=== PATIENT | male | born 1945 | race Caucasian/White ===

== ENCOUNTER 2016-12-14 18:25 | Emergency (ER) | payer OTHER, BC ==
[~2016-12-14] VITALS: Ht 175.3 cm; Wt 78.7 kg
[~2016-12-14 18:25] MED LIST: ACIDOPHILUS1 EAC3 PO; ALLOPURINOL100 MG PO; AMLODIPINE BESYL5 MG PO; AMLODIPINE-BEN1 EAC2 PO; AMLODIPINE-BEN1 EAC4 PO; ASCORBIC ACID500 M3 PO; ASCORBIC ACID500 MG PO; ASPIR 8181 M1 PO; ASPIRIN EC325 MG PO; ASPIRIN325 MG PO; ATIVAN0.5 MG PO; BESIVANCE5 ML LEFT EYE; C COMPLEX500 MG PO; CENTAMIN240 ML GT; CENTURY PO; CENTURY SENIOR PO; CHILD ASPIRIN81 M1 PO; CHOLESTYRAMINE L4 GM PO; CLINDAMYCIN HC300 MG PO; DIFLUCAN100 MG PO; DILAUDID2 MG PO; DOXYCYCLINE HY100 MG PO; DRONABINOL2.5 MG PO; EAR WAX REMOVAL15 ML BOTH EARS; ENDOCET 5-3251 EACH PO; FENOFIBRATE145 M1 GT; FEOSOL325 MG PO; FERROCITE324 MG PO; FERROUS SULFAT325 MG PO; FISH OIL CONC1 EACH PO; FISH OIL SOFTG1 EACH PO; FLEET ENEMA EX230 ML PR; FLEET ENEMA-AD118 ML PR; FURADANTIN5 MG/ML PO; Flora-Q,Risaquad PO; GABAPENTIN400 MG PO; GAS RELIEF 8080 MG PO; GENTLE LAXATIVE10 MG PR; GLUCOSAMINE &1 EAC1 PO; GLUCOSAMINE &1 EACH PO; HEPARIN SO5000 UNITS SC; IRON325 M1 PO; IRON325 MG PO; KEFLEX500 MG PO; LEVOTHYROXINE50 MCG PO; LIDOCAINE700 MG TD; LIDODERM 5% P1 PATCH TD; LIPITOR20 MG PO; LO-DOSE ASPIRIN81 M1 PO; LOPERAMIDE2 M1 PO; LOPERAMIDE2 MG PO; LORAZEPAM0.5 MG PO; LOTEMAX5 ML LEFT EYE; LOTREL 5/101 CAPSULE PO; MAGNESIUM400 M1 PO; MARINOL10 MG PO; MARINOL5 MG PO; MEGACE40 MG PO; METOCLOPRAMIDE10 MG PO; MILK OF MAGN PO; MIRALAX17 GM PO; MORPHINE SULFAT15 M1 PO; MOTRIN600 MG PO; MOTRIN800 MG PO; MULTIPLE VITAM1 EAC1 PO; MULTIVITAMIN1 EAC2 PO; MYLICON,MYLANTA80 MG PO; NABI650T PO; NEURONTIN100 MG PO; NEURONTIN400 MG PO; NORCO 5/3251 TABLET PO; NORVASC5 MG PO; NYSTOP60 GM TP; OMEPRAZOLE20 M3 PO; OMEPRAZOLE20 MG PO; OMEPRAZOLE40 M1 PO; OSTEO BI-FLEX1 EAC1 PO; OXYCODONE HCL10 M1 PO; OXYCODONE HCL10 MG PO; OXYCODONE HCL5 MG PO; OXYCODONE-APAP1 EACH; PANTOPRAZOLE SO40 MG PO; PAROXETINE HCL20 MG PO; PAXIL20 MG PO; PERCOCET 10/1 TABLET PO; PERCOCET 5/31 TABLET PO; PHENADOZ25 MG PR; POTASSIUM CHLO10 ME3 PO; POTASSIUM CHLO20 ME1 PO; PRAVACHOL40 MG PO; PRILOSEC20 MG PO; PROBIOTIC & AC1 EACH PO; PROBIOTIC ACID1 EAC1 PO; PROBIOTIC1 EAC1 PO; PROLENSA1.6 ML LEFT EYE; PROMETHAZINE12.5 M1 PO; PROTONIX40 MG PO; PYRIDOXINE HCL100 MG PO; QUESTRAN PACKET4 GM PO; QUESTRAN POWDE378 GM PO; REGLAN10 MG PO; REGLAN5 MG PO; ROXICODONE5 MG PO; SIMVASTATIN40 MG PO; ST. JOSEPH ASPI81 MG PO; TOPROL XL25 MG PO; TOPROL XL50 MG PO; TRIMETHOPRIM100 MG PO; TYLENOL ARTHRI650 MG PO; TYLENOL REGULA325 MG PO; TYLENOL325 MG PR; TYLENOL650 MG PR; ULTRAM50 MG PO; VANCOCIN HCL125 MG PO; VANCOMYCIN HCL250 MG PO; VITAMIN B-6100 MG PO; VOLTAREN 1% GE100 GM TP; Vancocin Oral Solution PO; XANAX0.25 MG PO; XIFAXAN550 MG PO; ZOCOR40 MG PO; ZOFRAN4 MG PO; ZOLPIDEM TARTRAT5 MG PO; ZOSYN 3.373.375 GM/5 IV; ZOSYN 3.3753.375 GM IV; ZYLOPRIM100 MG PO
[2016-12-14 21:49] VITALS: BP 104/86
== END 2016-12-14 21:49 | disposition home or self-care (01) ==
LOC: EME 18:25
DX: S09.90XA Unspecified injury of head, initial encounter (principal); W51.XXXA Accidental striking against or bumped into by another person, initial encounter; Z89.612 Acquired absence of left leg above knee
CPT/HCPCS: 70450; 99281; 99284

== ENCOUNTER → 2016-12-25 | Outpatient (CLI) | payer OTHER, BC ==
[~2016-12-25] MED LIST changes: +ERGOCALCIF50000 UNIT PO; +VALSARTAN40 MG PO
[2016-12-25 10:52] LABS: HEMATOCRIT 33.4 % (38.0-50.0); MCH 28.9 PG (29.0-34.0); MCHC 32.3 G/DL (30.0-36.0); MCV 89.3 FL (86-99); MEAN PLAT.VOLUME 10.5 uM^3 (9.0-12.4); PLATELET COUNT 219 K/uL (156-360); RBC DIS.WIDTH-CV 13.6 % (11.8-14.6); RBC DIS.WIDTH-SD 44.3 % (39-53); RED BLOOD COUNT 3.74 M/uL (4.00-5.50); WHITE BLOOD COUNT 8.9 K/uL (4.1-10.2)
== END | disposition home or self-care (01) ==
LOC: AMB 09:51
PROVIDERS: Physician Assistant
DX: K62.9 Disease of anus and rectum, unspecified (principal); Z93.2 Ileostomy status
CPT/HCPCS: 85027; 99211

== ENCOUNTER 2017-01-16 18:37 | Inpatient (IN) | payer OTHER, BC ==
[~2017-01-16] VITALS: Ht 157.5 cm; Wt 82.1 kg
[2017-01-16] VITALS (7 sets, daily range): BP systolic 62–101; BP diastolic 37–48
[2017-01-16 19:10] LABS: EOSINOPHIL (%) 0.1 % (0-5); HEMATOCRIT 26.1 % (38.0-50.0); IMMATURE GRANULOCYTE (%) 0.6 % (0.0-0.7); IMMATURE GRANULOCYTE COUNT 0.1 K/uL; INSTRUMENT ABS NEUTROPHIL CT 15.5 K/uL; LYMPHOCYTE COUNT 0.7 K/uL (1.0-2.8); MCH 28.8 PG (29.0-34.0); MCHC 30.7 G/DL (30.0-36.0); MEAN PLAT.VOLUME 10.2 uM^3 (9.0-12.4); MONOCYTE (%) 4.5 % (3-12); MONOCYTE COUNT 0.8 K/uL (0-0.8); NEUTROPHIL (%) 90.5 % (45-76); NEUTROPHIL COUNT 15.5 K/uL (1.8-6.4); RBC DIS.WIDTH-CV 12.9 % (11.8-14.6); RBC DIS.WIDTH-SD 44.4 % (39-53)
[2017-01-16 19:12] LABS: MCV 93.9 FL (86-99); PLATELET COUNT 546 K/uL (156-360); RED BLOOD COUNT 2.78 M/uL (4.00-5.50); WHITE BLOOD COUNT 17.2 K/uL (4.1-10.2)
[2017-01-16 19:22] LABS: CHLORIDE 84 mEq/L (99-109); POTASSIUM 4.8 mEq/L (3.7-5.4); SODIUM 130 mEq/L (136-147)
[2017-01-16 19:25] LABS: GLUCOSE 160 mg/dL (70-99)
[2017-01-16 19:26] LABS: ANION GAP 19 MEQ/L (2-14)
[2017-01-16 19:26] LABS: POINT-OF-CARE METER ID UU14100415
[2017-01-16 19:27] LABS: TOTAL BILIRUBIN 0.9 mg/dL (0.0-1.0)
[2017-01-16 19:28] LABS: ALKALINE PHOSPHATASE 134 IU/L (3-129); GFR ESTIMATE (CALCULATED) 15 mL/min/
[2017-01-16 19:29] LABS: UREA NITROGEN (BUN) 66 mg/dL (9-23)
[2017-01-16] MEDS ORDERED: ALIGN4 MG PO (21:14)
[2017-01-16] MEDS ORDERED: ONDANSETRON4 MG/2 ML IV (21:15)
[2017-01-16] MEDS ORDERED: ROXICODONE5 MG PO ×2 (21:16→21:17)
[2017-01-16] MEDS ORDERED: MAGOX 400400 MG PO (21:18)
[2017-01-16] MEDS ORDERED: HEPARIN SO5000 UNITS SC (21:18)
[2017-01-16 22:58] LABS: METH RESISTANT S AUREUS PCR NEGATIVE (NEGATIVE)
[2017-01-16 23:05] LABS: PROBE CHECK PASS; SPECIMEN PROCESSING CONTROL PASS
[2017-01-17] VITALS (31 sets, daily range): BP systolic 62–114; BP diastolic 28–57
[2017-01-17 00:06] LABS: C DIFF TOXIN NEGATIVE (NEGATIVE)
[2017-01-17 00:15] LABS: PROBE CHECK PASS; SPECIMEN PROCESSING CONTROL PASS
[2017-01-17 01:08] LABS: POTASSIUM 5.1 mEq/L (3.7-5.4)
[2017-01-17 01:09] LABS: SODIUM 131 mEq/L (136-147)
[2017-01-17 01:10] LABS: CHLORIDE 93 mEq/L (99-109)
[2017-01-17 01:11] LABS: GLUCOSE 156 mg/dL (70-99)
[2017-01-17 01:12] LABS: ANION GAP 16 MEQ/L (2-14)
[2017-01-17 01:13] LABS: HEMATOCRIT 25.2 % (38.0-50.0); MCH 28.9 PG (29.0-34.0); MCHC 30.6 G/DL (30.0-36.0); MCV 94.7 FL (86-99); RBC DIS.WIDTH-CV 13.2 % (11.8-14.6); RBC DIS.WIDTH-SD 45.1 % (39-53); RED BLOOD COUNT 2.66 M/uL (4.00-5.50); TOTAL BILIRUBIN 0.8 mg/dL (0.0-1.0); WHITE BLOOD COUNT 12.8 K/uL (4.1-10.2)
[2017-01-17 01:14] LABS: ALKALINE PHOSPHATASE 119 IU/L (3-129); GFR ESTIMATE (CALCULATED) 16 mL/min/
[2017-01-17 01:15] LABS: UREA NITROGEN (BUN) 66 mg/dL (9-23)
[2017-01-17 01:50] LABS: EOSINOPHIL (%) 0 % (0-5); HEMATOLOGY COMMENT 1 SMEAR COMPATIBLE; IMMATURE GRANULOCYTE (%) 0.6 % (0.0-0.7); IMMATURE GRANULOCYTE COUNT 0.1 K/uL; INSTRUMENT ABS NEUTROPHIL CT 11.9 K/uL; LYMPHOCYTE COUNT 0.4 K/uL (1.0-2.8); MONOCYTE (%) 3.8 % (3-12); MONOCYTE COUNT 0.5 K/uL (0-0.8); NEUTROPHIL (%) 92.5 % (45-76); NEUTROPHIL COUNT 11.9 K/uL (1.8-6.4); PLATELET CLUMPS PRESENT - PLATELET COUNT APPEARS INCREASED; PLATELET COUNT UNABLE TO REPORT K/uL (156-360)
[2017-01-17 05:46] LABS: EOSINOPHIL (%) 0 % (0-5); HEMATOCRIT 19.6 % (38.0-50.0); IMMATURE GRANULOCYTE (%) 0.7 % (0.0-0.7); IMMATURE GRANULOCYTE COUNT 0.1 K/uL; INSTRUMENT ABS NEUTROPHIL CT 10.7 K/uL; LYMPHOCYTE COUNT 0.4 K/uL (1.0-2.8); MCHC 30.6 G/DL (30.0-36.0); MCV 94.7 FL (86-99); MEAN PLAT.VOLUME 10.1 uM^3 (9.0-12.4); MONOCYTE (%) 4.7 % (3-12); MONOCYTE COUNT 0.6 K/uL (0-0.8); NEUTROPHIL (%) 90.9 % (45-76); NEUTROPHIL COUNT 10.7 K/uL (1.8-6.4); PLATELET COUNT 333 K/uL (156-360); RBC DIS.WIDTH-CV 13.1 % (11.8-14.6); RBC DIS.WIDTH-SD 45.2 % (39-53); RED BLOOD COUNT 2.07 M/uL (4.00-5.50); WHITE BLOOD COUNT 11.8 K/uL (4.1-10.2)
[2017-01-17 06:05] LABS: ANION GAP 10 MEQ/L (2-14); CHLORIDE 96 MEQ/L (99-109); GFR ESTIMATE (CALCULATED) 17 mL/min/; POTASSIUM 4.9 MEQ/L (3.7-5.4); SAMPLE HEMOLYSIS CHECK 0; SAMPLE ICTERIC CHECK 0; SAMPLE LIPEMIA CHECK 0; SODIUM 132 MEQ/L (136-147); UREA NITROGEN (BUN) 62 mg/dL (9-23)
[2017-01-17 06:06] LABS: GLUCOSE 116 mg/dL (70-99)
[2017-01-17 12:41] LABS: POINT-OF-CARE METER ID UU13113731
[2017-01-17 15:54] LABS: ABSOLUTE RETICULOCYTE CT. 0.1 M/uL (0.02-0.08); HEMATOCRIT 25.2 % (38.0-50.0); IMM.RETIC FRACTION 18.9 % (3-19); MCV 94.7 FL (86-99); RETIC HGB EQUIVALENT 24.7 (28-36); RETICULOCYTE COUNT 2.5 % (0.5-1.8)
[2017-01-17 16:23] LABS: IRON 47 MCG/DL (35-150)
[2017-01-17 16:39] LABS: FERRITIN 1330 NG/ML (22-322)
[2017-01-18] VITALS (27 sets, daily range): BP systolic 84–124; BP diastolic 38–70
[2017-01-18 06:34] LABS: HEMATOCRIT 23.3 % (38.0-50.0); MCH 29.8 PG (29.0-34.0); MCHC 30.9 G/DL (30.0-36.0); MCV 96.3 FL (86-99); MEAN PLAT.VOLUME 10.1 uM^3 (9.0-12.4); PLATELET COUNT 269 K/uL (156-360); RBC DIS.WIDTH-CV 13.4 % (11.8-14.6); RBC DIS.WIDTH-SD 47.5 % (39-53); RED BLOOD COUNT 2.42 M/uL (4.00-5.50)
[2017-01-18 19:23] LABS: HEMATOCRIT 31.7 % (38.0-50.0); MCH 29.2 PG (29.0-34.0); MCHC 31.5 G/DL (30.0-36.0); MCV 92.4 FL (86-99); MEAN PLAT.VOLUME 9.8 uM^3 (9.0-12.4); PLATELET COUNT 295 K/uL (156-360); RBC DIS.WIDTH-CV 15.1 % (11.8-14.6); RBC DIS.WIDTH-SD 51.6 % (39-53); WHITE BLOOD COUNT 7.7 K/uL (4.1-10.2)
[2017-01-18 19:24] LABS: RED BLOOD COUNT 3.43 M/uL (4.00-5.50)
[2017-01-19] VITALS (7 sets, daily range): BP systolic 107–132; BP diastolic 58–71
[2017-01-19 00:36] LABS: MCH 29.4 PG (29.0-34.0); MCV 91.7 FL (86-99); MEAN PLAT.VOLUME 9.6 uM^3 (9.0-12.4); PLATELET COUNT 301 K/uL (156-360); RBC DIS.WIDTH-CV 15.1 % (11.8-14.6); RBC DIS.WIDTH-SD 50.9 % (39-53); RED BLOOD COUNT 3.27 M/uL (4.00-5.50); WHITE BLOOD COUNT 7.6 K/uL (4.1-10.2)
[2017-01-19 06:32] LABS: MCH 28.5 PG (29.0-34.0); MEAN PLAT.VOLUME 9.8 uM^3 (9.0-12.4); PLATELET COUNT 305 K/uL (156-360); RBC DIS.WIDTH-CV 15.3 % (11.8-14.6); RBC DIS.WIDTH-SD 51.6 % (39-53); RED BLOOD COUNT 3.37 M/uL (4.00-5.50); WHITE BLOOD COUNT 7.2 K/uL (4.1-10.2)
[2017-01-19 08:40] LABS: ANION GAP 8 MEQ/L (2-14); CHLORIDE 102 MEQ/L (99-109); GFR ESTIMATE (CALCULATED) 29 mL/min/; GLUCOSE 116 mg/dL (70-99); POTASSIUM 4.1 MEQ/L (3.7-5.4); SAMPLE HEMOLYSIS CHECK 0; SAMPLE ICTERIC CHECK 0; SAMPLE LIPEMIA CHECK 0; SODIUM 137 MEQ/L (136-147); UREA NITROGEN (BUN) 40 mg/dL (9-23)
[2017-01-19 12:53] LABS: HEMATOCRIT 34.6 % (38.0-50.0); MCH 29.1 PG (29.0-34.0); MCHC 30.3 G/DL (30.0-36.0); MCV 95.8 FL (86-99); MEAN PLAT.VOLUME 9.8 uM^3 (9.0-12.4); PLATELET COUNT 283 K/uL (156-360); RBC DIS.WIDTH-CV 15.3 % (11.8-14.6); RBC DIS.WIDTH-SD 54.2 % (39-53); RED BLOOD COUNT 3.61 M/uL (4.00-5.50)
[2017-01-19 17:59] LABS: HEMATOCRIT 25.6 % (38.0-50.0); MCH 29.3 PG (29.0-34.0); MCHC 30.9 G/DL (30.0-36.0); MCV 94.8 FL (86-99); MEAN PLAT.VOLUME 9.7 uM^3 (9.0-12.4); PLATELET COUNT 230 K/uL (156-360); RBC DIS.WIDTH-CV 15.1 % (11.8-14.6); RBC DIS.WIDTH-SD 52.7 % (39-53); WHITE BLOOD COUNT 5.4 K/uL (4.1-10.2)
[2017-01-20 03:44] VITALS: BP 129/60
[2017-01-20 07:33] LABS: HEMATOCRIT 32.2 % (38.0-50.0); MCH 28.7 PG (29.0-34.0); MCHC 30.7 G/DL (30.0-36.0); MCV 93.3 FL (86-99); MEAN PLAT.VOLUME 9.9 uM^3 (9.0-12.4); PLATELET COUNT 299 K/uL (156-360); RBC DIS.WIDTH-CV 14.6 % (11.8-14.6)
[2017-01-20 07:36] LABS: RED BLOOD COUNT 3.45 M/uL (4.00-5.50); WHITE BLOOD COUNT 7.4 K/uL (4.1-10.2)
[2017-01-20 08:20] VITALS: BP 106/109
[2017-01-20 11:30] VITALS: BP 120/63
[2017-01-20 15:12] VITALS: BP 124/69
[2017-01-20 18:20] LABS: HEMATOCRIT 32.9 % (38.0-50.0); MCH 29.2 PG (29.0-34.0); MCHC 31.6 G/DL (30.0-36.0); MCV 92.4 FL (86-99); MEAN PLAT.VOLUME 9.6 uM^3 (9.0-12.4); PLATELET COUNT 292 K/uL (156-360); RBC DIS.WIDTH-CV 14.2 % (11.8-14.6); RBC DIS.WIDTH-SD 48.1 % (39-53); RED BLOOD COUNT 3.56 M/uL (4.00-5.50); WHITE BLOOD COUNT 7.5 K/uL (4.1-10.2)
[2017-01-20 21:45] VITALS: BP 138/90
[2017-01-21] VITALS: BP 168/74
[2017-01-21 04:45] VITALS: BP 143/77
[2017-01-21 07:08] VITALS: BP 135/77
[2017-01-21 07:33] LABS: EOSINOPHIL COUNT 0.1 K/uL (0-0.3); HEMATOCRIT 32.7 % (38.0-50.0); IMMATURE GRANULOCYTE (%) 1.7 % (0.0-0.7); IMMATURE GRANULOCYTE COUNT 0.1 K/uL; INSTRUMENT ABS NEUTROPHIL CT 6.8 K/uL; LYMPHOCYTE COUNT 0.8 K/uL (1.0-2.8); MCH 29.3 PG (29.0-34.0); MCHC 31.5 G/DL (30.0-36.0); MCV 93.2 FL (86-99); MEAN PLAT.VOLUME 9.9 uM^3 (9.0-12.4); MONOCYTE (%) 6.9 % (3-12); MONOCYTE COUNT 0.6 K/uL (0-0.8); NEUTROPHIL (%) 80.3 % (45-76); NEUTROPHIL COUNT 6.8 K/uL (1.8-6.4); PLATELET COUNT 287 K/uL (156-360); RBC DIS.WIDTH-CV 14.1 % (11.8-14.6); RED BLOOD COUNT 3.51 M/uL (4.00-5.50); WHITE BLOOD COUNT 8.4 K/uL (4.1-10.2)
[2017-01-21 08:12] LABS: ANION GAP 13 MEQ/L (2-14); CHLORIDE 107 MEQ/L (99-109); GFR ESTIMATE (CALCULATED) 49 mL/min/; GLUCOSE 106 mg/dL (70-99); POTASSIUM 4.2 MEQ/L (3.7-5.4); SAMPLE HEMOLYSIS CHECK 0; SAMPLE ICTERIC CHECK 0; SAMPLE LIPEMIA CHECK 0; SODIUM 144 MEQ/L (136-147); UREA NITROGEN (BUN) 22 mg/dL (9-23)
[2017-01-21 10:37] VITALS: BP 148/70
[2017-01-21] MEDS ORDERED: ENDOCET 5-3251 EACH PO (13:52)
[2017-01-21 16:10] VITALS: BP 146/68
== END 2017-01-21 18:30 | DRG 871 ==
LOC: EME 18:37 → EDOF 20:33 → 2EAST 20:33 → 4WEST 20:33 → 2EAST 01-19 15:06
PROVIDERS: Emergency Medicine; Hospitalist; Internal Medicine Critical Care Medicine; Internal Medicine Nephrology; Specialist
PROC: 30233N1 Transfusion of Nonautologous Red Blood Cells into Peripheral Vein, Percutaneous Approach (ICD-10-PCS; principal; 2017-01-17)
DX: A41.89 Other specified sepsis (principal); N39.0 Urinary tract infection, site not specified; N17.0 Acute kidney failure with tubular necrosis; R65.20 Severe sepsis without septic shock; G93.41 Metabolic encephalopathy; J96.00 Acute respiratory failure, unspecified whether with hypoxia or hypercapnia; E87.2 Acidosis; E87.1 Hypo-osmolality and hyponatremia; J98.11 Atelectasis; K92.2 Gastrointestinal hemorrhage, unspecified; T40.601A Poisoning by unspecified narcotics, accidental (unintentional), initial encounter; R73.9 Hyperglycemia, unspecified; E87.8 Other disorders of electrolyte and fluid balance, not elsewhere classified; I12.9 Hypertensive chronic kidney disease with stage 1 through stage 4 chronic kidney disease, or unspecified chronic kidney disease; N18.3 Chronic kidney disease, stage 3 (moderate); D64.9 Anemia, unspecified; L89.109 Pressure ulcer of unspecified part of back, unspecified stage; J45.909 Unspecified asthma, uncomplicated; K21.9 Gastro-esophageal reflux disease without esophagitis; E78.5 Hyperlipidemia, unspecified; F31.9 Bipolar disorder, unspecified; E66.9 Obesity, unspecified; Z68.32 Body mass index [BMI] 32.0-32.9, adult; Z96.653 Presence of artificial knee joint, bilateral; Z89.612 Acquired absence of left leg above knee; Z90.5 Acquired absence of kidney; Z93.6 Other artificial openings of urinary tract status; Z93.2 Ileostomy status; Z93.3 Colostomy status; Z96.611 Presence of right artificial shoulder joint; Z88.0 Allergy status to penicillin; Z88.1 Allergy status to other antibiotic agents; Z88.2 Allergy status to sulfonamides; Q05.9 Spina bifida, unspecified
CPT/HCPCS: 71010; 80048; 80053; 80202; 81003; 82607; 82728; 82746; 82747 90; 82948; 83540; 83605; 84466; 85014; 85018; 85025; 85025 91; 85027; 85045; 86850; 86900; 86901; 86920; 87040; 87070; 87077; 87081; 87086; 87186; 87205; 87493; 87641; 87801; 94799; 97530 GO; 99281; 99284; C9113; J0692; J0696; J0744; J1644; J1956; J2310; J2405; J3370; J7030; J7040; J7050; J7120; P9016; S0030

== ENCOUNTER 2017-03-07 16:46 | Emergency (ER) | payer OTHER, BC ==
[~2017-03-07] VITALS: Ht 157.5 cm; Wt 73.3 kg
[~2017-03-07 16:46] MED LIST changes: +ALIGN4 MG PO; +MAGOX 400400 MG PO; +ONDANSETRON4 MG/2 ML IV
[2017-03-07 18:27] LABS: EOSINOPHIL (%) 0 % (0-5); HEMATOCRIT 37.6 % (38.0-50.0); IMMATURE GRANULOCYTE (%) 0.2 % (0.0-0.7); INSTRUMENT ABS NEUTROPHIL CT 11.5 K/uL; LYMPHOCYTE COUNT 1.1 K/uL (1.0-2.8); MCH 29.8 PG (29.0-34.0); MCHC 33.5 G/DL (30.0-36.0); MCV 88.9 FL (86-99); MEAN PLAT.VOLUME 10.3 uM^3 (9.0-12.4); MONOCYTE (%) 5.4 % (3-12); MONOCYTE COUNT 0.7 K/uL (0-0.8); NEUTROPHIL (%) 86.2 % (45-76); NEUTROPHIL COUNT 11.5 K/uL (1.8-6.4); PLATELET COUNT 297 K/uL (156-360); RBC DIS.WIDTH-CV 15.4 % (11.8-14.6); RED BLOOD COUNT 4.23 M/uL (4.00-5.50)
[2017-03-07 18:28] LABS: WHITE BLOOD COUNT 13.4 K/uL (4.1-10.2)
[2017-03-07 18:37] LABS: CHLORIDE 94 mEq/L (99-109); POTASSIUM 4.1 mEq/L (3.7-5.4); SODIUM 140 mEq/L (136-147)
[2017-03-07 18:39] LABS: GLUCOSE 140 mg/dL (70-99)
[2017-03-07 18:40] LABS: ANION GAP 19 MEQ/L (2-14)
[2017-03-07 18:41] LABS: TOTAL BILIRUBIN 0.6 mg/dL (0.0-1.0)
[2017-03-07 18:42] LABS: ALKALINE PHOSPHATASE 93 IU/L (3-129)
[2017-03-07 18:43] LABS: GFR ESTIMATE (CALCULATED) 18 mL/min/
[2017-03-07 18:44] LABS: UREA NITROGEN (BUN) 63 mg/dL (9-23)
[2017-03-07 18:46] LABS: LIPASE 22 U/L (1.0-51.0)
[2017-03-07 19:20] LABS: ADD MIUA? YES; BILIRUBIN NEGATIVE; BLOOD SMALL; COLOR YELLOW ((YELLOW)); GLUCOSE (STRIP) NEGATIVE; KETONES NEGATIVE; LEUKOCYTES MODERATE; NITRITE NEGATIVE; PROTEIN (STRIP) 100; UROBILINOGEN 0.2 MG/DL (0.2-1.0)
[2017-03-07 19:41] LABS: BACTERIA 2+ /HPF; EPITHELIAL CELLS NONE SEEN /HPF; MUCUS NONE SEEN /LPF; RED BLOOD CELLS 0-5 /HPF (0-5); UCUL ADDED? YES; WHITE BLOOD CELLS TNTC /HPF (0-5)
[2017-03-07] MEDS ORDERED: CIPRO250 MG PO (20:04)
[2017-03-07 20:29] VITALS: BP 103/67
== END 2017-03-07 20:30 | disposition home or self-care (01) ==
LOC: EME 16:46
PROVIDERS: Emergency Medicine
DX: N39.0 Urinary tract infection, site not specified (principal); R11.10 Vomiting, unspecified; E78.5 Hyperlipidemia, unspecified; I10 Essential (primary) hypertension; K21.9 Gastro-esophageal reflux disease without esophagitis; Z93.2 Ileostomy status; Z96.653 Presence of artificial knee joint, bilateral; Z88.2 Allergy status to sulfonamides; Z88.1 Allergy status to other antibiotic agents
CPT/HCPCS: 74022; 80053; 81003; 83690; 85025; 87077; 87086 GA; 87186; 99281; 99285; J2405; J7030

== ENCOUNTER 2017-05-04 07:15 | Inpatient (IN) | payer OTHER, BC ==
[~2017-05-04] VITALS: Ht 157.5 cm; Wt 77.0 kg
[~2017-05-04 07:15] MED LIST changes: +CIPRO250 MG PO; +GABAPENTIN300 MG PO; +MAG-OXIDE400 MG PO; +Vitamin B-12 SL
[2017-05-04 07:50] LABS: HEMATOCRIT 39.4 % (38.0-50.0); MCH 30.3 PG (29.0-34.0); MCHC 34.8 G/DL (30.0-36.0); MEAN PLAT.VOLUME 10.5 uM^3 (9.0-12.4); RBC DIS.WIDTH-CV 13.6 % (11.8-14.6); RBC DIS.WIDTH-SD 43.4 % (39-53); WHITE BLOOD COUNT 10.9 K/uL (4.1-10.2)
[2017-05-04 07:51] LABS: CHLORIDE 78 mEq/L (99-109); MCV 87.2 FL (86-99); PLATELET COUNT 300 K/uL (156-360); POTASSIUM 4.4 mEq/L (3.7-5.4); RED BLOOD COUNT 4.52 M/uL (4.00-5.50); SODIUM 121 mEq/L (136-147)
[2017-05-04 07:53] LABS: GLUCOSE 169 mg/dL (70-99)
[2017-05-04 07:54] LABS: ANION GAP 15 MEQ/L (2-14)
[2017-05-04 07:57] LABS: GFR ESTIMATE (CALCULATED) 20 mL/min/; UREA NITROGEN (BUN) 91 mg/dL (9-23)
[2017-05-04 09:44] LABS: TOTAL BILIRUBIN 0.6 mg/dL (0.0-1.0)
[2017-05-04 09:45] LABS: ALKALINE PHOSPHATASE 122 IU/L (3-129)
[2017-05-04 09:47] LABS: DIRECT BILIRUBIN 0.2 mg/dL (0.0-0.3)
[2017-05-04 09:48] LABS: LIPASE 54 U/L (1.0-51.0)
[2017-05-04 11:26] LABS: ADD MIUA? YES; BILIRUBIN NEGATIVE; BLOOD SMALL; COLOR YELLOW ((YELLOW)); GLUCOSE (STRIP) NEGATIVE; KETONES NEGATIVE; LEUKOCYTES LARGE; NITRITE NEGATIVE; PROTEIN (STRIP) 100; SPECIFIC GRAVITY 1.018 (1.000-1.030); UROBILINOGEN 0.2 MG/DL (0.2-1.0)
[2017-05-04 11:39] LABS: UCUL ADDED? YES; WHITE BLOOD CELLS TNTC /HPF (0-5)
[2017-05-04 18:56] LABS: ANION GAP 16 MEQ/L (2-14); CHLORIDE 80 MEQ/L (99-109); GFR ESTIMATE (CALCULATED) 23 mL/min/; GLUCOSE 161 mg/dL (70-99); MAGNESIUM 2.1 mg/dl (1.3-2.7); POTASSIUM 4.5 MEQ/L (3.7-5.4); SAMPLE HEMOLYSIS CHECK 0; SAMPLE ICTERIC CHECK 0; SAMPLE LIPEMIA CHECK 0; SODIUM 121 MEQ/L (136-147); UREA NITROGEN (BUN) 87 mg/dL (9-23)
[2017-05-04 19:43] VITALS: BP 89/56
[2017-05-04 21:30] LABS: C DIFF TOXIN NEGATIVE (NEGATIVE)
[2017-05-04 21:54] LABS: METH RESISTANT S AUREUS PCR NEGATIVE (NEGATIVE)
[2017-05-04 22:03] LABS: PROBE CHECK PASS; SPECIMEN PROCESSING CONTROL PASS
[2017-05-04 22:03] LABS: PROBE CHECK PASS; SPECIMEN PROCESSING CONTROL PASS
[2017-05-04 23:18] LABS: CHLORIDE 84 mEq/L (99-109); POTASSIUM 4.3 mEq/L (3.7-5.4); SODIUM 121 mEq/L (136-147)
[2017-05-04 23:21] LABS: ANION GAP 12 MEQ/L (2-14)
[2017-05-04 23:22] LABS: GLUCOSE 110 mg/dL (70-99)
[2017-05-04 23:24] LABS: GFR ESTIMATE (CALCULATED) 26 mL/min/; UREA NITROGEN (BUN) 81 mg/dL (9-23)
[2017-05-04 23:35] VITALS: BP 100/62
[2017-05-05 03:06] VITALS: BP 106/63
[2017-05-05 07:51] VITALS: BP 92/59
[2017-05-05 09:37] LABS: EOSINOPHIL (%) 0.3 % (0-5); HEMATOCRIT 30.5 % (38.0-50.0); IMMATURE GRANULOCYTE (%) 0.5 % (0.0-0.7); INSTRUMENT ABS NEUTROPHIL CT 5.2 K/uL; LYMPHOCYTE COUNT 0.7 K/uL (1.0-2.8); MCH 31.3 PG (29.0-34.0); MCHC 34.1 G/DL (30.0-36.0); MONOCYTE (%) 4.6 % (3-12); MONOCYTE COUNT 0.3 K/uL (0-0.8); NEUTROPHIL (%) 83.4 % (45-76); NEUTROPHIL COUNT 5.2 K/uL (1.8-6.4); RBC DIS.WIDTH-SD 47.1 % (39-53); WHITE BLOOD COUNT 6.3 K/uL (4.1-10.2)
[2017-05-05 09:39] LABS: MCV 91.9 FL (86-99); RED BLOOD COUNT 3.32 M/uL (4.00-5.50)
[2017-05-05 10:01] LABS: ANION GAP 10 MEQ/L (2-14); CHLORIDE 87 MEQ/L (99-109); GFR ESTIMATE (CALCULATED) 32 mL/min/; GLUCOSE 156 mg/dL (70-99); MAGNESIUM 1.9 mg/dl (1.3-2.7); POTASSIUM 4.1 MEQ/L (3.7-5.4); SAMPLE HEMOLYSIS CHECK 0; SAMPLE ICTERIC CHECK 0; SAMPLE LIPEMIA CHECK 0; SODIUM 126 MEQ/L (136-147); UREA NITROGEN (BUN) 64 mg/dL (9-23)
[2017-05-05 10:10] LABS: PLATELET COUNT UNABLE TO REPORT K/uL (156-360)
[2017-05-05 11:06] VITALS: BP 103/61
[2017-05-05] MEDS ORDERED: TRAZODONE HCL50 MG PO (12:37)
[2017-05-05] MEDS ORDERED: CYANOCOBALAM1000 MCG PO (12:39)
[2017-05-05 14:57] LABS: PLAT.SUFFICIENCY ADEQUATE; PLATELET CLUMPS PRESENT - PLATELET COUNT APPEARS ADQ.
[2017-05-05 15:49] VITALS: BP 103/64
[2017-05-05 19:42] VITALS: BP 100/62
[2017-05-06] VITALS (7 sets, daily range): BP systolic 94–124; BP diastolic 52–68
[2017-05-06 06:39] LABS: HEMATOCRIT 28.9 % (38.0-50.0); MCH 31.8 PG (29.0-34.0); MCV 92.9 FL (86-99); RED BLOOD COUNT 3.11 M/uL (4.00-5.50); WHITE BLOOD COUNT 6.8 K/uL (4.1-10.2)
[2017-05-06 06:40] LABS: MCHC 34.3 G/DL (30.0-36.0); MEAN PLAT.VOLUME 10.4 uM^3 (9.0-12.4); RBC DIS.WIDTH-SD 47.5 % (39-53)
[2017-05-06 06:47] LABS: PLATELET COUNT 164 K/uL (156-360)
[2017-05-06 07:07] LABS: ANION GAP 8 MEQ/L (2-14); ANION GAP 9 MEQ/L (2-14); CHLORIDE 95 MEQ/L (99-109); GFR ESTIMATE (CALCULATED) 53 mL/min/; MAGNESIUM 1.8 mg/dl (1.3-2.7); SAMPLE HEMOLYSIS CHECK 0; SAMPLE ICTERIC CHECK 0; SAMPLE LIPEMIA CHECK 0; SODIUM 131 MEQ/L (136-147); UREA NITROGEN (BUN) 39 mg/dL (9-23)
[2017-05-06 07:12] LABS: GLUCOSE 87 mg/dL (70-99)
[2017-05-07 03:43] VITALS: BP 110/55
[2017-05-07 10:59] LABS: ANION GAP 8 MEQ/L (2-14); CHLORIDE 102 MEQ/L (99-109); GFR ESTIMATE (CALCULATED) > 59 mL/min/; SAMPLE HEMOLYSIS CHECK 0; SAMPLE ICTERIC CHECK 0; SAMPLE LIPEMIA CHECK 0; SODIUM 132 MEQ/L (136-147); UREA NITROGEN (BUN) 20 mg/dL (9-23)
[2017-05-07 11:01] LABS: GLUCOSE 156 mg/dL (70-99); MAGNESIUM 1.3 mg/dl (1.3-2.7)
[2017-05-07 11:08] LABS: HEMATOCRIT 28.9 % (38.0-50.0); MCH 31.3 PG (29.0-34.0); MCHC 33.2 G/DL (30.0-36.0); MCV 94.1 FL (86-99); MEAN PLAT.VOLUME 10.1 uM^3 (9.0-12.4); PLATELET COUNT 160 K/uL (156-360); RBC DIS.WIDTH-CV 14.1 % (11.8-14.6); RBC DIS.WIDTH-SD 48.8 % (39-53); RED BLOOD COUNT 3.07 M/uL (4.00-5.50); WHITE BLOOD COUNT 6.9 K/uL (4.1-10.2)
[2017-05-07 11:50] VITALS: BP 116/60
[2017-05-07] MEDS ORDERED: REGULOID0.52 GM PO (13:16)
[2017-05-07 15:59] VITALS: BP 121/60
== END 2017-05-07 18:56 | disposition home health service (06) | DRG 699 ==
LOC: EME 07:15 → EDOF 12:49 → 3EAST 12:49
PROVIDERS: Hospitalist; Internal Medicine; Internal Medicine Nephrology; Physician Assistant
DX: T83.518A Infection and inflammatory reaction due to other urinary catheter, initial encounter (principal); N17.9 Acute kidney failure, unspecified; N39.0 Urinary tract infection, site not specified; Z93.6 Other artificial openings of urinary tract status; E86.0 Dehydration; E78.5 Hyperlipidemia, unspecified; F31.9 Bipolar disorder, unspecified; E87.1 Hypo-osmolality and hyponatremia; Z90.5 Acquired absence of kidney; E87.2 Acidosis; N18.3 Chronic kidney disease, stage 3 (moderate); I12.9 Hypertensive chronic kidney disease with stage 1 through stage 4 chronic kidney disease, or unspecified chronic kidney disease; E55.9 Vitamin D deficiency, unspecified; Q05.9 Spina bifida, unspecified; Z89.612 Acquired absence of left leg above knee; K21.9 Gastro-esophageal reflux disease without esophagitis; Z98.42 Cataract extraction status, left eye; E83.42 Hypomagnesemia; Z93.3 Colostomy status; B96.89 Other specified bacterial agents as the cause of diseases classified elsewhere; Z87.440 Personal history of urinary (tract) infections; Z86.19 Personal history of other infectious and parasitic diseases; M10.9 Gout, unspecified; E78.00 Pure hypercholesterolemia, unspecified; Z80.42 Family history of malignant neoplasm of prostate; Z82.49 Family history of ischemic heart disease and other diseases of the circulatory system
CPT/HCPCS: 74020; 74176; 80048; 80048 91; 80069; 80076; 81003; 82306; 82533 91; 82607; 83605; 83690; 83735; 85025; 85027; 87077; 87086; 87186; 87493; 87641; 97530 GP; 99281; 99285; C1894; J0696; J1956; J2405; J3475; J7030; J7040; J7050

== ENCOUNTER 2017-05-18 02:53 | Inpatient (IN) | payer OTHER, BC ==
[~2017-05-18] VITALS: Ht 157.5 cm; Wt 76.8 kg
[~2017-05-18 02:53] MED LIST changes: +CYANOCOBALAM1000 MCG PO; +REGULOID0.52 GM PO; +TRAZODONE HCL50 MG PO
[2017-05-18 03:54] LABS: CHLORIDE 87 mEq/L (99-109); POTASSIUM 3.9 mEq/L (3.7-5.4); SODIUM 134 mEq/L (136-147)
[2017-05-18 03:56] LABS: GLUCOSE 180 mg/dL (70-99)
[2017-05-18 03:58] LABS: ANION GAP 23 MEQ/L (2-14)
[2017-05-18 04:00] LABS: ALKALINE PHOSPHATASE 184 IU/L (3-129); GFR ESTIMATE (CALCULATED) 19 mL/min/
[2017-05-18 04:01] LABS: UREA NITROGEN (BUN) 64 mg/dL (9-23)
[2017-05-18 04:02] LABS: MCH 30.2 PG (29.0-34.0); MCHC 33.9 G/DL (30.0-36.0); MEAN PLAT.VOLUME 9.9 uM^3 (9.0-12.4); PLATELET COUNT 362 K/uL (156-360); RBC DIS.WIDTH-CV 13.9 % (11.8-14.6); RBC DIS.WIDTH-SD 45.1 % (39-53); RED BLOOD COUNT 4.27 M/uL (4.00-5.50); WHITE BLOOD COUNT 19.5 K/uL (4.1-10.2)
[2017-05-18 04:03] LABS: LIPASE 29 U/L (1.0-51.0)
[2017-05-18 04:31] LABS: ADD MIUA? YES; BILIRUBIN NEGATIVE; BLOOD SMALL; COLOR AMBER ((YELLOW)); GLUCOSE (STRIP) NEGATIVE; KETONES NEGATIVE; LEUKOCYTES SMALL; NITRITE NEGATIVE; PROTEIN (STRIP) 30; SPECIFIC GRAVITY 1.021 (1.000-1.030); UROBILINOGEN 0.2 MG/DL (0.2-1.0)
[2017-05-18 05:00] LABS: BACTERIA 3+ /HPF; EPITHELIAL CELLS 1+ /HPF; MUCUS NONE SEEN /LPF; UCUL ADDED? YES
[2017-05-18 10:18] VITALS: BP 89/59
[2017-05-18 11:43] VITALS: BP 89/53
[2017-05-18 12:52] LABS: C DIFF TOXIN NEGATIVE (NEGATIVE)
[2017-05-18 12:53] LABS: PROBE CHECK PASS; SPECIMEN PROCESSING CONTROL PASS
[2017-05-18 15:05] VITALS: BP 87/54
[2017-05-18 19:15] VITALS: BP 90/55
[2017-05-18 23:26] VITALS: BP 89/51
[2017-05-19 04:08] VITALS: BP 110/59
[2017-05-19 08:03] LABS: EOSINOPHIL (%) 0.2 % (0-5); HEMATOCRIT 26.9 % (38.0-50.0); IMMATURE GRANULOCYTE (%) 0.3 % (0.0-0.7); LYMPHOCYTE COUNT 0.7 K/uL (1.0-2.8); MCH 31.3 PG (29.0-34.0); MCHC 32.7 G/DL (30.0-36.0); MONOCYTE (%) 7.1 % (3-12); MONOCYTE COUNT 0.4 K/uL (0-0.8); NEUTROPHIL (%) 80.1 % (45-76); RBC DIS.WIDTH-CV 14.2 % (11.8-14.6); RBC DIS.WIDTH-SD 49.9 % (39-53); WHITE BLOOD COUNT 6.2 K/uL (4.1-10.2)
[2017-05-19 08:10] LABS: MCV 95.7 FL (86-99); MEAN PLAT.VOLUME 9.6 uM^3 (9.0-12.4); PLAT.SUFFICIENCY ADEQUATE; RED BLOOD COUNT 2.81 M/uL (4.00-5.50)
[2017-05-19 08:13] LABS: PLATELET COUNT 168 K/uL (156-360)
[2017-05-19 08:32] LABS: ALKALINE PHOSPHATASE 88 IU/L (3-129); ANION GAP 10 MEQ/L (2-14); CHLORIDE 105 MEQ/L (99-109); MAGNESIUM 1.6 mg/dl (1.3-2.7); POTASSIUM 3.7 MEQ/L (3.7-5.4); SAMPLE HEMOLYSIS CHECK 0; SAMPLE ICTERIC CHECK 0; SAMPLE LIPEMIA CHECK 0; TOTAL BILIRUBIN 0.5 MG/DL (0.0-1.0); UREA NITROGEN (BUN) 33 mg/dL (9-23)
[2017-05-19 08:33] LABS: GFR ESTIMATE (CALCULATED) 58 mL/min/; GLUCOSE 84 mg/dL (70-99); SODIUM 141 MEQ/L (136-147)
[2017-05-19 08:34] LABS: VANCOMYCIN, TROUGH 8.9 MCG/ML (10-20)
[2017-05-19 09:29] VITALS: BP 92/58
[2017-05-19 11:31] VITALS: BP 112/67
[2017-05-19 16:31] VITALS: BP 111/62
[2017-05-19 19:48] VITALS: BP 100/55
[2017-05-19 23:00] VITALS: BP 109/57
[2017-05-20 04:02] VITALS: BP 107/58
[2017-05-20 05:26] LABS: EOSINOPHIL (%) 0.7 % (0-5); HEMATOCRIT 27.7 % (38.0-50.0); IMMATURE GRANULOCYTE (%) 0.3 % (0.0-0.7); INSTRUMENT ABS NEUTROPHIL CT 4.4 K/uL; LYMPHOCYTE COUNT 0.9 K/uL (1.0-2.8); MCH 30.1 PG (29.0-34.0); MCHC 31.8 G/DL (30.0-36.0); MCV 94.9 FL (86-99); MEAN PLAT.VOLUME 9.2 uM^3 (9.0-12.4); MONOCYTE (%) 6.6 % (3-12); MONOCYTE COUNT 0.4 K/uL (0-0.8); NEUTROPHIL (%) 77.2 % (45-76); NEUTROPHIL COUNT 4.4 K/uL (1.8-6.4); PLATELET COUNT 200 K/uL (156-360); RBC DIS.WIDTH-CV 14.1 % (11.8-14.6); RBC DIS.WIDTH-SD 48.6 % (39-53); RED BLOOD COUNT 2.92 M/uL (4.00-5.50); WHITE BLOOD COUNT 5.8 K/uL (4.1-10.2)
[2017-05-20 06:00] LABS: ANION GAP 12 MEQ/L (2-14); CHLORIDE 100 MEQ/L (99-109); MAGNESIUM 1.4 mg/dl (1.3-2.7); POTASSIUM 3.5 MEQ/L (3.7-5.4); SAMPLE HEMOLYSIS CHECK 0; SAMPLE ICTERIC CHECK 0; SAMPLE LIPEMIA CHECK 0; SODIUM 137 MEQ/L (136-147)
[2017-05-20 06:05] LABS: GFR ESTIMATE (CALCULATED) > 59 mL/min/; GLUCOSE 69 mg/dL (70-99); UREA NITROGEN (BUN) 18 mg/dL (9-23)
[2017-05-20 09:13] VITALS: BP 117/64
[2017-05-20 11:12] VITALS: BP 96/63
[2017-05-20 16:08] VITALS: BP 121/67
[2017-05-20 19:15] VITALS: BP 103/65
[2017-05-20 23:46] VITALS: BP 109/57
[2017-05-21 04:03] VITALS: BP 119/69
[2017-05-21 06:05] LABS: EOSINOPHIL (%) 2.3 % (0-5); EOSINOPHIL COUNT 0.1 K/uL (0-0.3); HEMATOCRIT 27.7 % (38.0-50.0); IMMATURE GRANULOCYTE (%) 0.5 % (0.0-0.7); INSTRUMENT ABS NEUTROPHIL CT 2.7 K/uL; MCHC 32.1 G/DL (30.0-36.0); MCV 93.3 FL (86-99); MEAN PLAT.VOLUME 9.3 uM^3 (9.0-12.4); MONOCYTE COUNT 0.4 K/uL (0-0.8); NEUTROPHIL (%) 63.4 % (45-76); NEUTROPHIL COUNT 2.7 K/uL (1.8-6.4); PLATELET COUNT 218 K/uL (156-360); RBC DIS.WIDTH-CV 13.6 % (11.8-14.6); RBC DIS.WIDTH-SD 46.8 % (39-53); RED BLOOD COUNT 2.97 M/uL (4.00-5.50); WHITE BLOOD COUNT 4.3 K/uL (4.1-10.2)
[2017-05-21 06:35] LABS: ANION GAP 9 MEQ/L (2-14); CHLORIDE 102 MEQ/L (99-109); GFR ESTIMATE (CALCULATED) > 59 mL/min/; POTASSIUM 3.6 MEQ/L (3.7-5.4); SAMPLE HEMOLYSIS CHECK 0; SAMPLE ICTERIC CHECK 0; SAMPLE LIPEMIA CHECK 0; SODIUM 140 MEQ/L (136-147); UREA NITROGEN (BUN) 10 mg/dL (9-23)
[2017-05-21 06:38] LABS: GLUCOSE 88 mg/dL (70-99)
[2017-05-21 09:12] VITALS: BP 121/70
[2017-05-21 11:33] VITALS: BP 111/64
[2017-05-21 15:37] VITALS: BP 109/61
[2017-05-21] MEDS ORDERED: TYLENOL ARTHRI650 MG PO (15:52)
[2017-05-21] MEDS ORDERED: NEUTRA-PHOS,1 PACKET PO (15:53)
== END 2017-05-21 17:27 | disposition home health service (06) | DRG 388 ==
LOC: EME 02:53 → EDOF 07:48 → 4EAST 07:48
PROVIDERS: Internal Medicine; Physician Assistant
DX: K56.5 Intestinal adhesions [bands] with obstruction (postinfection) (principal); N17.0 Acute kidney failure with tubular necrosis; E83.39 Other disorders of phosphorus metabolism; E83.42 Hypomagnesemia; E86.0 Dehydration; E87.1 Hypo-osmolality and hyponatremia; E87.2 Acidosis; E87.6 Hypokalemia; J98.11 Atelectasis; I95.9 Hypotension, unspecified; I12.9 Hypertensive chronic kidney disease with stage 1 through stage 4 chronic kidney disease, or unspecified chronic kidney disease; N18.3 Chronic kidney disease, stage 3 (moderate); I25.10 Atherosclerotic heart disease of native coronary artery without angina pectoris; K21.9 Gastro-esophageal reflux disease without esophagitis; K44.9 Diaphragmatic hernia without obstruction or gangrene; E78.5 Hyperlipidemia, unspecified; M10.9 Gout, unspecified; F41.9 Anxiety disorder, unspecified; F31.9 Bipolar disorder, unspecified; R74.0 Nonspecific elevation of levels of transaminase and lactic acid dehydrogenase [LDH]; D47.3 Essential (hemorrhagic) thrombocythemia; Q05.9 Spina bifida, unspecified; E66.9 Obesity, unspecified; M19.90 Unspecified osteoarthritis, unspecified site; Z68.31 Body mass index [BMI] 31.0-31.9, adult; Z93.6 Other artificial openings of urinary tract status; Z93.3 Colostomy status; Z90.5 Acquired absence of kidney; Z89.611 Acquired absence of right leg above knee; Z96.611 Presence of right artificial shoulder joint; Z89.612 Acquired absence of left leg above knee; Z86.19 Personal history of other infectious and parasitic diseases; Z82.49 Family history of ischemic heart disease and other diseases of the circulatory system; Z90.49 Acquired absence of other specified parts of digestive tract
CPT/HCPCS: 71010; 74000; 74176; 80053; 80069; 80202; 81003; 83605; 83690; 83735; 84100; 85025; 85027; 87040; 87086; 87493; 87506; 94640; 99281; 99285; J1644; J1956; J2185; J2270; J2405; J3010; J3370; J7030; J7040; J7042; J7050; J7120; S0028; S0030

== ENCOUNTER 2017-06-16 21:59 | Inpatient (IN) | payer OTHER, BC ==
[~2017-06-16] VITALS: Ht 157.5 cm; Wt 70.0 kg
[~2017-06-16 21:59] MED LIST changes: +NEUTRA-PHOS,1 PACKET PO
[2017-06-16 22:37] LABS: ADD MIUA? YES; BILIRUBIN NEGATIVE; BLOOD SMALL; COLOR YELLOW ((YELLOW)); GLUCOSE (STRIP) NEGATIVE; KETONES NEGATIVE; LEUKOCYTES LARGE; NITRITE NEGATIVE; PROTEIN (STRIP) 30; SPECIFIC GRAVITY 1.019 (1.000-1.030); UROBILINOGEN 0.2 MG/DL (0.2-1.0)
[2017-06-16 23:20] LABS: HEMATOCRIT 38.4 % (38.0-50.0); MCH 30.3 PG (29.0-34.0); MCHC 35.2 G/DL (30.0-36.0); MCV 86.3 FL (86-99); MEAN PLAT.VOLUME 10.5 uM^3 (9.0-12.4); PLATELET COUNT 328 K/uL (156-360); RBC DIS.WIDTH-CV 14.3 % (11.8-14.6); RBC DIS.WIDTH-SD 44.2 % (39-53); RED BLOOD COUNT 4.45 M/uL (4.00-5.50); WHITE BLOOD COUNT 14.5 K/uL (4.1-10.2)
[2017-06-16 23:25] LABS: CHLORIDE 79 mEq/L (99-109); POTASSIUM 2.8 mEq/L (3.7-5.4)
[2017-06-16 23:26] LABS: SODIUM 129 mEq/L (136-147)
[2017-06-16 23:28] LABS: BACTERIA 3+ /HPF; EPITHELIAL CELLS 1+ /HPF; MUCUS 1+ /LPF; UCUL ADDED? YES; WHITE BLOOD CELLS 20-30 /HPF (0-5)
[2017-06-16 23:28] LABS: GLUCOSE 151 mg/dL (70-99)
[2017-06-16 23:29] LABS: AMORPHOUS URATES CRYSTALS 2+; CRYSTALS PRESENT
[2017-06-16 23:29] LABS: ANION GAP 29 MEQ/L (2-14)
[2017-06-16 23:30] LABS: TOTAL BILIRUBIN 1.1 mg/dL (0.0-1.0)
[2017-06-16 23:31] LABS: ALKALINE PHOSPHATASE 87 IU/L (3-129); GFR ESTIMATE (CALCULATED) 19 mL/min/
[2017-06-16 23:33] LABS: UREA NITROGEN (BUN) 89 mg/dL (9-23)
[2017-06-16 23:35] LABS: LIPASE 132 U/L (1.0-51.0)
[2017-06-17 02:50] LABS: CREATINE KINASE 112 IU/L (1-294)
[2017-06-17 09:15] LABS: EOSINOPHIL (%) 0.4 % (0-5); HEMATOCRIT 29.9 % (38.0-50.0); IMMATURE GRANULOCYTE (%) 0.4 % (0.0-0.7); INSTRUMENT ABS NEUTROPHIL CT 5.4 K/uL; MCH 30.3 PG (29.0-34.0); MCHC 34.1 G/DL (30.0-36.0); MCV 88.7 FL (86-99); MONOCYTE (%) 7.1 % (3-12); MONOCYTE COUNT 0.5 K/uL (0-0.8); NEUTROPHIL COUNT 5.4 K/uL (1.8-6.4); RBC DIS.WIDTH-CV 14.5 % (11.8-14.6); RBC DIS.WIDTH-SD 46.1 % (39-53); WHITE BLOOD COUNT 6.9 K/uL (4.1-10.2)
[2017-06-17 09:30] LABS: RED BLOOD COUNT 3.37 M/uL (4.00-5.50)
[2017-06-17 09:35] LABS: MEAN PLAT.VOLUME 10.3 uM^3 (9.0-12.4); PLAT.SUFFICIENCY ADEQUATE
[2017-06-17 09:41] LABS: ALKALINE PHOSPHATASE 56 IU/L (3-129); ANION GAP 16 MEQ/L (2-14); CHLORIDE 94 MEQ/L (99-109); GLUCOSE 130 mg/dL (70-99); SAMPLE HEMOLYSIS CHECK 0; SAMPLE ICTERIC CHECK 0; SAMPLE LIPEMIA CHECK 0; SODIUM 134 MEQ/L (136-147); TOTAL BILIRUBIN 0.8 MG/DL (0.0-1.0); UREA NITROGEN (BUN) 73 mg/dL (9-23)
[2017-06-17 09:50] LABS: GFR ESTIMATE (CALCULATED) 29 mL/min/; POTASSIUM 3.6 MEQ/L (3.7-5.4)
[2017-06-17 09:53] VITALS: BP 151/70
[2017-06-17 09:54] LABS: PLATELET COUNT 216 K/uL (156-360)
[2017-06-17 12:19] VITALS: BP 98/54
[2017-06-17 15:30] VITALS: BP 108/60
[2017-06-17 19:09] VITALS: BP 123/59
[2017-06-17 23:36] VITALS: BP 112/69
[2017-06-18 04:29] VITALS: BP 109/61
[2017-06-18 08:00] VITALS: BP 105/83
[2017-06-18 09:00] VITALS: BP 105/83
[2017-06-18 09:39] LABS: EOSINOPHIL COUNT 0.1 K/uL (0-0.3); HEMATOCRIT 28.8 % (38.0-50.0); IMMATURE GRANULOCYTE (%) 0.2 % (0.0-0.7); LYMPHOCYTE COUNT 0.8 K/uL (1.0-2.8); MCH 31.2 PG (29.0-34.0); MCV 91.7 FL (86-99); MEAN PLAT.VOLUME 10.2 uM^3 (9.0-12.4); MONOCYTE (%) 6.8 % (3-12); MONOCYTE COUNT 0.4 K/uL (0-0.8); NEUTROPHIL (%) 76.8 % (45-76); PLATELET COUNT 179 K/uL (156-360); RBC DIS.WIDTH-CV 14.9 % (11.8-14.6); RBC DIS.WIDTH-SD 49.1 % (39-53); RED BLOOD COUNT 3.14 M/uL (4.00-5.50); WHITE BLOOD COUNT 5.3 K/uL (4.1-10.2)
[2017-06-18 10:09] LABS: ANION GAP 12 MEQ/L (2-14); CHLORIDE 100 MEQ/L (99-109); GFR ESTIMATE (CALCULATED) 53 mL/min/; GLUCOSE 140 mg/dL (70-99); POTASSIUM 3.8 MEQ/L (3.7-5.4); SAMPLE HEMOLYSIS CHECK 0; SAMPLE ICTERIC CHECK 0; SAMPLE LIPEMIA CHECK 0; SODIUM 138 MEQ/L (136-147); UREA NITROGEN (BUN) 44 mg/dL (9-23)
== END 2017-06-18 15:48 | disposition home or self-care (01) | DRG 641 ==
LOC: EME 21:59 → EDOF 06-17 04:50 → ENRESERV 06-17 04:51 → 4EAST 06-17 07:35
PROVIDERS: Hospitalist; Internal Medicine
DX: E86.0 Dehydration (principal); N17.9 Acute kidney failure, unspecified; F33.9 Major depressive disorder, recurrent, unspecified; J98.11 Atelectasis; K52.9 Noninfective gastroenteritis and colitis, unspecified; E87.6 Hypokalemia; E78.5 Hyperlipidemia, unspecified; K44.9 Diaphragmatic hernia without obstruction or gangrene; M10.9 Gout, unspecified; K21.9 Gastro-esophageal reflux disease without esophagitis; I10 Essential (primary) hypertension; E87.1 Hypo-osmolality and hyponatremia; E86.1 Hypovolemia; D64.9 Anemia, unspecified; Q05.9 Spina bifida, unspecified; Z90.49 Acquired absence of other specified parts of digestive tract; Z90.5 Acquired absence of kidney; Z93.3 Colostomy status; Z89.612 Acquired absence of left leg above knee; Z93.6 Other artificial openings of urinary tract status; Z96.653 Presence of artificial knee joint, bilateral; Z98.42 Cataract extraction status, left eye; Z82.49 Family history of ischemic heart disease and other diseases of the circulatory system; Z80.42 Family history of malignant neoplasm of prostate; Z88.0 Allergy status to penicillin; Z88.2 Allergy status to sulfonamides
CPT/HCPCS: 74176; 80048; 80053; 81003; 82550; 83605; 83690; 85025; 85027; 87040; 87086; 87493; 99281; 99284; C1753; J0692; J1644; J1956; J2405; J3480; J7030; J7050

== ENCOUNTER 2017-06-27 04:23 | Inpatient (IN) | payer OTHER, BC ==
[~2017-06-27] VITALS: Ht 157.5 cm; Wt 77.9 kg
[2017-06-27 05:34] LABS: HEMATOCRIT 37.9 % (38.0-50.0); MCH 30.8 PG (29.0-34.0); MCHC 34.8 G/DL (30.0-36.0); MCV 88.6 FL (86-99); MEAN PLAT.VOLUME 10.8 uM^3 (9.0-12.4); RBC DIS.WIDTH-CV 14.7 % (11.8-14.6); RBC DIS.WIDTH-SD 47.4 % (39-53); WHITE BLOOD COUNT 10.8 K/uL (4.1-10.2)
[2017-06-27 05:35] LABS: PLATELET COUNT 336 K/uL (156-360); RED BLOOD COUNT 4.28 M/uL (4.00-5.50)
[2017-06-27 05:38] LABS: CHLORIDE 74 mEq/L (99-109); POTASSIUM 4.4 mEq/L (3.7-5.4); SODIUM 130 mEq/L (136-147)
[2017-06-27 05:41] LABS: GLUCOSE 214 mg/dL (70-99)
[2017-06-27 05:42] LABS: ANION GAP 30 MEQ/L (2-14); TOTAL BILIRUBIN 1.2 mg/dL (0.0-1.0)
[2017-06-27 05:44] LABS: ALKALINE PHOSPHATASE 87 IU/L (3-129); GFR ESTIMATE (CALCULATED) 18 mL/min/
[2017-06-27 05:45] LABS: UREA NITROGEN (BUN) 93 mg/dL (9-23)
[2017-06-27 05:48] LABS: LIPASE 168 U/L (1.0-51.0)
[2017-06-27] MEDS ORDERED: MONUROL SACHET 33 GM PO (07:06)
[2017-06-27 11:12] VITALS: BP 116/73
[2017-06-27 12:00] VITALS: BP 116/73
[2017-06-27 16:44] VITALS: BP 112/68
[2017-06-27 18:11] LABS: POTASSIUM 3.8 mEq/L (3.7-5.4); SODIUM 133 mEq/L (136-147)
[2017-06-27 18:12] LABS: MAGNESIUM 1.8 mg/dL (1.3-2.7)
[2017-06-27 18:13] LABS: GLUCOSE 153 mg/dL (70-99)
[2017-06-27 18:14] LABS: ANION GAP 18 MEQ/L (2-14)
[2017-06-27 18:15] LABS: CHLORIDE 88 mEq/L (99-109)
[2017-06-27 18:17] LABS: GFR ESTIMATE (CALCULATED) 27 mL/min/
[2017-06-27 18:18] LABS: UREA NITROGEN (BUN) 75 mg/dL (9-23)
[2017-06-27 20:06] VITALS: BP 94/52
[2017-06-27 21:41] VITALS: BP 96/52
[2017-06-27 23:20] VITALS: BP 101/59
[2017-06-28 03:10] VITALS: BP 94/51
[2017-06-28 06:08] LABS: HEMATOCRIT 29.3 % (38.0-50.0); MCH 31.1 PG (29.0-34.0); MCHC 33.4 G/DL (30.0-36.0); MEAN PLAT.VOLUME 10.3 uM^3 (9.0-12.4); RBC DIS.WIDTH-CV 15.3 % (11.8-14.6); WHITE BLOOD COUNT 5.7 K/uL (4.1-10.2)
[2017-06-28 06:09] LABS: PLATELET COUNT 182 K/uL (156-360); RED BLOOD COUNT 3.15 M/uL (4.00-5.50)
[2017-06-28 06:14] LABS: ANION GAP 10 MEQ/L (2-14); CHLORIDE 89 MEQ/L (99-109); GFR ESTIMATE (CALCULATED) 43 mL/min/; GLUCOSE 121 mg/dL (70-99); MAGNESIUM 1.6 mg/dl (1.3-2.7); POTASSIUM 3.3 MEQ/L (3.7-5.4); SAMPLE HEMOLYSIS CHECK 0; SAMPLE ICTERIC CHECK 0; SAMPLE LIPEMIA CHECK 0; SODIUM 134 MEQ/L (136-147); UREA NITROGEN (BUN) 61 mg/dL (9-23)
[2017-06-28 06:18] LABS: PLAT.SUFFICIENCY ADEQUATE
[2017-06-28 08:40] VITALS: BP 95/58
[2017-06-28 13:49] VITALS: BP 116/66
[2017-06-28] MEDS ORDERED: REGULOID0.52 GM PO (13:52)
[2017-06-28 16:39] VITALS: BP 107/68
[2017-06-28 20:00] VITALS: BP 118/58
[2017-06-29 00:30] VITALS: BP 96/46
[2017-06-29 04:58] VITALS: BP 94/50
[2017-06-29 05:13] LABS: MCH 31.1 PG (29.0-34.0); MCV 94.4 FL (86-99); MEAN PLAT.VOLUME 10.1 uM^3 (9.0-12.4); PLATELET COUNT 175 K/uL (156-360); RBC DIS.WIDTH-SD 51.5 % (39-53); RED BLOOD COUNT 2.86 M/uL (4.00-5.50); WHITE BLOOD COUNT 4.6 K/uL (4.1-10.2)
[2017-06-29 05:41] LABS: ANION GAP 8 MEQ/L (2-14); CHLORIDE 96 MEQ/L (99-109); GFR ESTIMATE (CALCULATED) > 59 mL/min/; GLUCOSE 108 mg/dL (70-99); POTASSIUM 4.1 MEQ/L (3.7-5.4); SAMPLE HEMOLYSIS CHECK 0; SAMPLE ICTERIC CHECK 0; SAMPLE LIPEMIA CHECK 0; SODIUM 135 MEQ/L (136-147); UREA NITROGEN (BUN) 35 mg/dL (9-23)
[2017-06-29 05:42] LABS: MAGNESIUM 1.3 mg/dl (1.3-2.7)
[2017-06-29 08:56] VITALS: BP 119/65
[2017-06-29 12:13] VITALS: BP 101/58
[2017-06-29 20:00] VITALS: BP 157/70
[2017-06-30 00:35] VITALS: BP 115/63
[2017-06-30 04:25] VITALS: BP 118/65
[2017-06-30 07:51] VITALS: BP 118/69
== END 2017-06-30 15:55 | disposition home or self-care (01) | DRG 389 ==
LOC: EME 04:23 → EDOF 07:55 → 4EAST 07:55 → ENRESERV 07:58 → CANRESERV 07:58 → EDOF 08:03 → ENRESERV 09:36 → 4EAST 10:26 → ENPENDDIS 06-30 → 4EAST 06-30 15:55
PROVIDERS: Emergency Medicine; Physician Assistant; Surgery
DX: K56.5 Intestinal adhesions [bands] with obstruction (postinfection) (principal); N17.9 Acute kidney failure, unspecified; E86.0 Dehydration; E87.2 Acidosis; E87.1 Hypo-osmolality and hyponatremia; E78.5 Hyperlipidemia, unspecified; I10 Essential (primary) hypertension; G47.33 Obstructive sleep apnea (adult) (pediatric); K21.9 Gastro-esophageal reflux disease without esophagitis; E55.9 Vitamin D deficiency, unspecified; F32.9 Major depressive disorder, single episode, unspecified; F41.9 Anxiety disorder, unspecified; K44.9 Diaphragmatic hernia without obstruction or gangrene; R00.0 Tachycardia, unspecified; M54.9 Dorsalgia, unspecified; R05 Cough; Z96.611 Presence of right artificial shoulder joint; Q05.9 Spina bifida, unspecified; Z90.49 Acquired absence of other specified parts of digestive tract; Z89.611 Acquired absence of right leg above knee; Z93.3 Colostomy status; Z88.0 Allergy status to penicillin; Z88.2 Allergy status to sulfonamides; Z22.39 Carrier of other specified bacterial diseases; Z93.6 Other artificial openings of urinary tract status
CPT/HCPCS: 71010; 74000; 74176; 80048; 80048 91; 80053; 80202; 83605; 83690; 83735; 84100; 85027; 87040; 87801; 99281; 99285; C9113; J0696; J0744; J1170; J2405; J2765; J3010; J3370; J3480; J7030; J7050; J7120

== ENCOUNTER 2017-07-07 10:51 | Emergency (ER) | payer OTHER, BC ==
[~2017-07-07] VITALS: Ht 157.5 cm; Wt 72.7 kg
[~2017-07-07 10:51] MED LIST changes: +MONUROL SACHET 33 GM PO
[2017-07-07 11:40] LABS: HEMATOCRIT 40.9 % (38.0-50.0); MCH 30.8 PG (29.0-34.0); MEAN PLAT.VOLUME 10.4 uM^3 (9.0-12.4); RBC DIS.WIDTH-CV 14.3 % (11.8-14.6); RBC DIS.WIDTH-SD 45.2 % (39-53); WHITE BLOOD COUNT 11.8 K/uL (4.1-10.2)
[2017-07-07 11:41] LABS: PLATELET COUNT 415 K/uL (156-360); RED BLOOD COUNT 4.65 M/uL (4.00-5.50)
[2017-07-07 12:06] LABS: ADD MIUA? YES; BILIRUBIN NEGATIVE; BLOOD NEGATIVE; COLOR YELLOW ((YELLOW)); GLUCOSE (STRIP) NEGATIVE; KETONES NEGATIVE; LEUKOCYTES MODERATE; NITRITE NEGATIVE; PROTEIN (STRIP) 30; SPECIFIC GRAVITY 1.023 (1.000-1.030); UROBILINOGEN 0.2 MG/DL (0.2-1.0)
[2017-07-07 12:12] LABS: BACTERIA RARE /HPF; BUDDING YEAST 4+; EPITHELIAL CELLS RARE /HPF; HYALINE CASTS TNTC /LPF; MUCUS TRACE /LPF; RED BLOOD CELLS 20-30 /HPF (0-5); WHITE BLOOD CELLS 15-20 /HPF (0-5)
[2017-07-07 12:41] LABS: CHLORIDE 112 mEq/L (99-109); POTASSIUM 4.5 mEq/L (3.7-5.4); SODIUM 144 mEq/L (136-147)
[2017-07-07 12:43] LABS: GLUCOSE 130 mg/dL (70-99)
[2017-07-07 12:44] LABS: ANION GAP 11 MEQ/L (2-14)
[2017-07-07 12:45] LABS: TOTAL BILIRUBIN 0.7 mg/dL (0.0-1.0)
[2017-07-07 12:47] LABS: ALKALINE PHOSPHATASE 92 IU/L (3-129); GFR ESTIMATE (CALCULATED) > 59 mL/min/
[2017-07-07 12:48] LABS: UREA NITROGEN (BUN) 29 mg/dL (9-23)
[2017-07-07 12:50] LABS: LIPASE 38 U/L (1.0-51.0)
[2017-07-07] MEDS ORDERED: ZOFRAN4 MG PO (14:41)
[2017-07-07] MEDS ORDERED: LEVAQUIN750 MG PO (14:41)
[2017-07-07 15:23] VITALS: BP 110/79
== END 2017-07-07 15:27 | disposition home or self-care (01) ==
LOC: EME 10:51
PROVIDERS: Emergency Medicine; Nurse Practitioner Family
DX: R10.9 Unspecified abdominal pain (principal); R82.99 Other abnormal findings in urine; R11.2 Nausea with vomiting, unspecified; M25.60 Stiffness of unspecified joint, not elsewhere classified; Z93.6 Other artificial openings of urinary tract status; Z93.2 Ileostomy status; Z90.49 Acquired absence of other specified parts of digestive tract; Z90.5 Acquired absence of kidney; Z88.0 Allergy status to penicillin
CPT/HCPCS: 80053; 81003; 83690; 85027; 99281; 99285; J2405; J7030

== ENCOUNTER 2017-07-10 23:23 | Inpatient (IN) | payer OTHER, BC ==
[~2017-07-10] VITALS: Ht 157.5 cm; Wt 77.5 kg
[~2017-07-10 23:23] MED LIST changes: +LEVAQUIN750 MG PO
[2017-07-11 00:10] LABS: HEMATOCRIT 36.5 % (38.0-50.0); MCH 30.8 PG (29.0-34.0); MCHC 35.9 G/DL (30.0-36.0); MCV 85.9 FL (86-99); MEAN PLAT.VOLUME 10.4 uM^3 (9.0-12.4); PLATELET COUNT 381 K/uL (156-360); RBC DIS.WIDTH-CV 13.9 % (11.8-14.6); RED BLOOD COUNT 4.25 M/uL (4.00-5.50); WHITE BLOOD COUNT 17.8 K/uL (4.1-10.2)
[2017-07-11 00:20] LABS: GLUCOSE 164 mg/dL (70-99)
[2017-07-11 00:21] LABS: ANION GAP 26 MEQ/L (2-14)
[2017-07-11 00:36] LABS: UREA NITROGEN (BUN) 74 mg/dL (9-23)
[2017-07-11 00:37] LABS: CHLORIDE 75 mEq/L (99-109); GFR ESTIMATE (CALCULATED) 15 mL/min/; POTASSIUM 3.5 mEq/L (3.7-5.4); SODIUM 122 mEq/L (136-147)
[2017-07-11 01:47] LABS: TROP-I INTERPRETATION NEGATIVE; TROPONIN-I 0.03 ng/mL (0.0-0.30)
[2017-07-11 06:31] VITALS: BP 118/64
[2017-07-11 08:12] VITALS: BP 126/56
[2017-07-11 11:16] LABS: ANION GAP 16 MEQ/L (2-14); CHLORIDE 84 MEQ/L (99-109); POTASSIUM 3.2 MEQ/L (3.7-5.4); SAMPLE HEMOLYSIS CHECK 0; SAMPLE ICTERIC CHECK 0; SAMPLE LIPEMIA CHECK 0; SODIUM 122 MEQ/L (136-147); UREA NITROGEN (BUN) 69 mg/dL (9-23)
[2017-07-11 11:17] LABS: GFR ESTIMATE (CALCULATED) 21 mL/min/; GLUCOSE 108 mg/dL (70-99)
[2017-07-11 11:43] VITALS: BP 88/55
[2017-07-11 11:52] VITALS: BP 90/64
[2017-07-11 12:00] LABS: HEMATOCRIT 28.1 % (38.0-50.0); MCH 31.4 PG (29.0-34.0); MCHC 37.4 G/DL (30.0-36.0); MCV 84.1 FL (86-99); RBC DIS.WIDTH-CV 14.1 % (11.8-14.6); RBC DIS.WIDTH-SD 43.3 % (39-53); WHITE BLOOD COUNT 12.2 K/uL (4.1-10.2)
[2017-07-11 12:14] LABS: RED BLOOD COUNT 3.34 M/uL (4.00-5.50)
[2017-07-11 13:32] LABS: MEAN PLAT.VOLUME 10.7 uM^3 (9.0-12.4); PLAT.SUFFICIENCY ADEQUATE
[2017-07-11 13:35] LABS: PLATELET COUNT 246 K/uL (156-360)
[2017-07-11 16:17] VITALS: BP 103/56
[2017-07-11 17:53] LABS: ANION GAP 13 MEQ/L (2-14); CHLORIDE 88 MEQ/L (99-109); GLUCOSE 105 mg/dL (70-99); POTASSIUM 3.4 MEQ/L (3.7-5.4); SAMPLE HEMOLYSIS CHECK 0; SAMPLE ICTERIC CHECK 0; SAMPLE LIPEMIA CHECK 0; SODIUM 125 MEQ/L (136-147); UREA NITROGEN (BUN) 64 mg/dL (9-23)
[2017-07-11 17:54] LABS: GFR ESTIMATE (CALCULATED) 25 mL/min/
[2017-07-11 19:50] VITALS: BP 97/60
[2017-07-12 00:42] VITALS: BP 102/57
[2017-07-12 03:39] VITALS: BP 101/55
[2017-07-12 06:36] LABS: ANION GAP 12 MEQ/L (2-14); CHLORIDE 95 MEQ/L (99-109); GLUCOSE 94 mg/dL (70-99); POTASSIUM 3.4 MEQ/L (3.7-5.4); SAMPLE HEMOLYSIS CHECK 0; SAMPLE ICTERIC CHECK 0; SAMPLE LIPEMIA CHECK 0; SODIUM 130 MEQ/L (136-147); UREA NITROGEN (BUN) 56 mg/dL (9-23)
[2017-07-12 07:00] LABS: GFR ESTIMATE (CALCULATED) 32 mL/min/; MAGNESIUM 0.8 mg/dl (1.3-2.7)
[2017-07-12 08:17] LABS: HEMATOCRIT 29.3 % (38.0-50.0); MCH 30.6 PG (29.0-34.0); MCHC 34.5 G/DL (30.0-36.0); MCV 88.8 FL (86-99); MEAN PLAT.VOLUME 10.6 uM^3 (9.0-12.4); PLATELET COUNT 211 K/uL (156-360); RBC DIS.WIDTH-CV 14.6 % (11.8-14.6); RBC DIS.WIDTH-SD 46.8 % (39-53); WHITE BLOOD COUNT 9.9 K/uL (4.1-10.2)
[2017-07-12 08:26] VITALS: BP 103/66
[2017-07-12 09:04] LABS: C DIFF TOXIN NEGATIVE (NEGATIVE)
[2017-07-12 09:13] LABS: PROBE CHECK PASS; SPECIMEN PROCESSING CONTROL PASS
[2017-07-12 16:04] VITALS: BP 136/84
[2017-07-12 21:07] VITALS: BP 101/59
[2017-07-13 00:39] VITALS: BP 94/55
[2017-07-13 04:09] VITALS: BP 116/51
[2017-07-13 06:53] LABS: ANION GAP 10 MEQ/L (2-14); CHLORIDE 103 MEQ/L (99-109); GLUCOSE 100 mg/dL (70-99); SAMPLE HEMOLYSIS CHECK 0; SAMPLE ICTERIC CHECK 0; SAMPLE LIPEMIA CHECK 0; SODIUM 133 MEQ/L (136-147); UREA NITROGEN (BUN) 34 mg/dL (9-23)
[2017-07-13 06:56] LABS: GFR ESTIMATE (CALCULATED) 49 mL/min/; MAGNESIUM 2.1 mg/dl (1.3-2.7); POTASSIUM 4.2 MEQ/L (3.7-5.4)
[2017-07-13 07:37] VITALS: BP 110/53
[2017-07-13] MEDS ORDERED: BENEFIBER152 GM PO (12:09)
[2017-07-13] MEDS ORDERED: PAIN RELIEF650 MG PO (12:09)
[2017-07-13 15:12] VITALS: BP 93/50
[2017-07-13 23:36] VITALS: BP 99/58
[2017-07-14 06:54] LABS: EOSINOPHIL (%) 1.4 % (0-5); EOSINOPHIL COUNT 0.1 K/uL (0-0.3); HEMATOCRIT 25.7 % (38.0-50.0); IMMATURE GRANULOCYTE (%) 0.5 % (0.0-0.7); INSTRUMENT ABS NEUTROPHIL CT 4.4 K/uL; MCH 31.5 PG (29.0-34.0); MCHC 33.9 G/DL (30.0-36.0); MEAN PLAT.VOLUME 10.2 uM^3 (9.0-12.4); MONOCYTE (%) 5.8 % (3-12); MONOCYTE COUNT 0.3 K/uL (0-0.8); NEUTROPHIL (%) 74.9 % (45-76); NEUTROPHIL COUNT 4.4 K/uL (1.8-6.4); PLATELET COUNT 154 K/uL (156-360); RBC DIS.WIDTH-SD 51.6 % (39-53); RED BLOOD COUNT 2.76 M/uL (4.00-5.50); WHITE BLOOD COUNT 5.9 K/uL (4.1-10.2)
[2017-07-14 06:55] LABS: MCV 93.1 FL (86-99)
[2017-07-14 07:13] LABS: ANION GAP 8 MEQ/L (2-14); CHLORIDE 104 MEQ/L (99-109); GFR ESTIMATE (CALCULATED) 58 mL/min/; GLUCOSE 92 mg/dL (70-99); POTASSIUM 3.9 MEQ/L (3.7-5.4); SAMPLE HEMOLYSIS CHECK 0; SAMPLE ICTERIC CHECK 0; SAMPLE LIPEMIA CHECK 0; SODIUM 134 MEQ/L (136-147); UREA NITROGEN (BUN) 24 mg/dL (9-23)
[2017-07-14 07:14] LABS: MAGNESIUM 1.5 mg/dl (1.3-2.7)
[2017-07-14 07:38] VITALS: BP 102/55
[2017-07-14] MEDS ORDERED: METAMUCIL0.4 GM PO (09:49)
[2017-07-14] MEDS ORDERED: LOMOTIL TABLET1 EACH PO (09:52)
[2017-07-14] MEDS ORDERED: AMILORIDE HCL5 MG PO (11:34)
== END 2017-07-14 12:50 | disposition home health service (06) | DRG 683 ==
LOC: EME 23:23 → EDOF 07-11 04:32 → 5SOUTH 07-11 04:32 → ENRESERV 07-11 04:38 → 5SOUTH 07-11 06:10
PROVIDERS: Hospitalist; Internal Medicine Nephrology; Nurse Practitioner Adult Health
DX: N17.9 Acute kidney failure, unspecified (principal); Z93.3 Colostomy status; E86.0 Dehydration; E87.1 Hypo-osmolality and hyponatremia; K56.60 Unspecified intestinal obstruction; E87.6 Hypokalemia; E83.42 Hypomagnesemia; M10.9 Gout, unspecified; Z86.19 Personal history of other infectious and parasitic diseases; N18.3 Chronic kidney disease, stage 3 (moderate); F31.9 Bipolar disorder, unspecified; J44.9 Chronic obstructive pulmonary disease, unspecified; E78.5 Hyperlipidemia, unspecified; D72.829 Elevated white blood cell count, unspecified; K21.9 Gastro-esophageal reflux disease without esophagitis; M48.06 Spinal stenosis, lumbar region; Z96.611 Presence of right artificial shoulder joint; I12.9 Hypertensive chronic kidney disease with stage 1 through stage 4 chronic kidney disease, or unspecified chronic kidney disease; Z96.653 Presence of artificial knee joint, bilateral; D64.9 Anemia, unspecified; Q05.9 Spina bifida, unspecified; Z89.612 Acquired absence of left leg above knee
CPT/HCPCS: 73030; 74176; 80048; 80048 91; 80069; 81003; 83735; 84484; 85025; 85027; 87493; 93005; 99281; 99285; C9113; J1644; J2405; J3475; J7030; J7120; S0030

== ENCOUNTER 2017-07-27 10:57 | Inpatient (IN) | payer OTHER, BC ==
[~2017-07-27] VITALS: Ht 157.5 cm; Wt 71.3 kg
[~2017-07-27 10:57] MED LIST changes: +AMILORIDE HCL5 MG PO; +BENEFIBER152 GM PO; +LOMOTIL TABLET1 EACH PO; +METAMUCIL0.4 GM PO; +PAIN RELIEF650 MG PO
[2017-07-27 12:18] LABS: HEMATOCRIT 39.5 % (38.0-50.0); MCH 30.5 PG (29.0-34.0); MCHC 34.2 G/DL (30.0-36.0); MCV 89.4 FL (86-99); MEAN PLAT.VOLUME 10.5 uM^3 (9.0-12.4); RBC DIS.WIDTH-CV 14.3 % (11.8-14.6); RBC DIS.WIDTH-SD 46.5 % (39-53); RED BLOOD COUNT 4.42 M/uL (4.00-5.50); WHITE BLOOD COUNT 10.3 K/uL (4.1-10.2)
[2017-07-27 12:19] LABS: PLATELET COUNT 333 K/uL (156-360)
[2017-07-27 12:22] LABS: CHLORIDE 91 mEq/L (99-109)
[2017-07-27 12:23] LABS: SODIUM 130 mEq/L (136-147)
[2017-07-27 12:24] LABS: GLUCOSE 120 mg/dL (70-99)
[2017-07-27 12:26] LABS: ANION GAP 18 MEQ/L (2-14)
[2017-07-27 12:29] LABS: UREA NITROGEN (BUN) 84 mg/dL (9-23)
[2017-07-27 12:31] LABS: GFR ESTIMATE (CALCULATED) 22 mL/min/; POTASSIUM 5.9 mEq/L (3.7-5.4)
[2017-07-27 12:35] LABS: TROP-I INTERPRETATION NEGATIVE; TROPONIN-I < 0.01 ng/mL (0.0-0.30)
[2017-07-27 13:06] LABS: METHEMOGLOBIN 0.9 % (0-1.5); PO2 105 mm Hg (80-100)
[2017-07-27 13:07] LABS: PCO2 28 mm Hg (35-45); pH 7.44 (7.35-7.45)
[2017-07-27 13:12] LABS: SITE RR
[2017-07-27 13:13] LABS: COMMENTS - BLOOD GASES A+C+
[2017-07-27 14:28] LABS: CHLORIDE 97 mEq/L (99-109); SODIUM 132 mEq/L (136-147)
[2017-07-27 14:29] LABS: GLUCOSE 108 mg/dL (70-99)
[2017-07-27 14:31] LABS: ANION GAP 15 MEQ/L (2-14)
[2017-07-27 14:34] LABS: UREA NITROGEN (BUN) 84 mg/dL (9-23)
[2017-07-27 14:38] LABS: GFR ESTIMATE (CALCULATED) 27 mL/min/; POTASSIUM 4.1 mEq/L (3.7-5.4)
[2017-07-27 14:45] LABS: ADD MIUA? YES; BILIRUBIN NEGATIVE; BLOOD NEGATIVE; COLOR YELLOW ((YELLOW)); GLUCOSE (STRIP) NEGATIVE; KETONES NEGATIVE; LEUKOCYTES LARGE; NITRITE NEGATIVE; PROTEIN (STRIP) NEGATIVE; SPECIFIC GRAVITY 1.023 (1.000-1.030); UROBILINOGEN 0.2 MG/DL (0.2-1.0)
[2017-07-27] MEDS ORDERED: MAGOX 400400 MG PO (14:53)
[2017-07-27 14:55] LABS: BACTERIA RARE /HPF; EPITHELIAL CELLS RARE /HPF; HYALINE CASTS 0-5 /LPF; MUCUS TRACE /LPF; RED BLOOD CELLS 15-20 /HPF (0-5); WHITE BLOOD CELLS 20-30 /HPF (0-5)
[2017-07-27 16:18] LABS: MAGNESIUM 0.8 mg/dL (1.3-2.7)
[2017-07-27 21:57] VITALS: BP 104/59
[2017-07-27 22:11] LABS: ADD MIUA? YES; BILIRUBIN NEGATIVE; BLOOD NEGATIVE; COLOR YELLOW ((YELLOW)); GLUCOSE (STRIP) NEGATIVE; KETONES NEGATIVE; LEUKOCYTES TRACE; NITRITE NEGATIVE; PROTEIN (STRIP) NEGATIVE; SPECIFIC GRAVITY 1.012 (1.000-1.030); UROBILINOGEN 0.2 MG/DL (0.2-1.0)
[2017-07-27 22:38] LABS: UCUL ADDED? NO
[2017-07-27 22:59] LABS: C DIFF TOXIN NEGATIVE (NEGATIVE)
[2017-07-27 23:11] LABS: PROBE CHECK PASS; SPECIMEN PROCESSING CONTROL PASS
[2017-07-28] VITALS (8 sets, daily range): BP systolic 96–111; BP diastolic 56–66
[2017-07-28 05:49] LABS: ALKALINE PHOSPHATASE 62 IU/L (3-129); ANION GAP 12 MEQ/L (2-14); GLUCOSE 101 mg/dL (70-99); POTASSIUM 4.1 MEQ/L (3.7-5.4); SAMPLE HEMOLYSIS CHECK 0; SAMPLE ICTERIC CHECK 0; SAMPLE LIPEMIA CHECK 0; SODIUM 133 MEQ/L (136-147); TOTAL BILIRUBIN 0.3 MG/DL (0.0-1.0); UREA NITROGEN (BUN) 59 mg/dL (9-23)
[2017-07-28 05:53] LABS: EOSINOPHIL (%) 1.7 % (0-5); EOSINOPHIL COUNT 0.1 K/uL (0-0.3); HEMATOCRIT 29.2 % (38.0-50.0); IMMATURE GRANULOCYTE (%) 0.7 % (0.0-0.7); IMMATURE GRANULOCYTE COUNT 0.1 K/uL; INSTRUMENT ABS NEUTROPHIL CT 5.8 K/uL; LYMPHOCYTE COUNT 1.2 K/uL (1.0-2.8); MCH 31.6 PG (29.0-34.0); MCHC 34.2 G/DL (30.0-36.0); MCV 92.4 FL (86-99); MEAN PLAT.VOLUME 10.6 uM^3 (9.0-12.4); MONOCYTE (%) 6.3 % (3-12); MONOCYTE COUNT 0.5 K/uL (0-0.8); NEUTROPHIL (%) 74.9 % (45-76); NEUTROPHIL COUNT 5.8 K/uL (1.8-6.4); PLAT.SUFFICIENCY ADEQUATE; RBC DIS.WIDTH-CV 14.5 % (11.8-14.6); RBC DIS.WIDTH-SD 49.1 % (39-53); WHITE BLOOD COUNT 7.7 K/uL (4.1-10.2)
[2017-07-28 06:00] LABS: CHLORIDE 102 MEQ/L (99-109); GFR ESTIMATE (CALCULATED) 43 mL/min/
[2017-07-28 06:06] LABS: PLATELET COUNT 222 K/uL (156-360); RED BLOOD COUNT 3.16 M/uL (4.00-5.50)
[2017-07-28 10:00] LABS: MAGNESIUM 1.6 mg/dl (1.3-2.7)
[2017-07-29 00:46] VITALS: BP 96/62
[2017-07-29 04:27] LABS: HEMATOCRIT 30.8 % (38.0-50.0); MCV 90.3 FL (86-99)
[2017-07-29 04:33] LABS: PROTHROMBIN TIME 11.4 SEC (10.2-12.9)
[2017-07-29 07:24] VITALS: BP 125/66
[2017-07-29 10:23] LABS: ANION GAP 8 MEQ/L (2-14); CHLORIDE 107 MEQ/L (99-109); GFR ESTIMATE (CALCULATED) > 59 mL/min/; GLUCOSE 107 mg/dL (70-99); POTASSIUM 4.3 MEQ/L (3.7-5.4); SAMPLE HEMOLYSIS CHECK 0; SAMPLE ICTERIC CHECK 0; SAMPLE LIPEMIA CHECK 0; SODIUM 135 MEQ/L (136-147); UREA NITROGEN (BUN) 31 mg/dL (9-23)
[2017-07-29 12:10] VITALS: BP 123/63
[2017-07-29 16:20] VITALS: BP 115/59
[2017-07-29 17:06] LABS: MAGNESIUM 1.7 mg/dl (1.3-2.7)
[2017-07-29 23:58] VITALS: BP 113/67
[2017-07-30 06:08] LABS: HEMATOCRIT 29.9 % (38.0-50.0); MCHC 32.1 G/DL (30.0-36.0); MCV 93.4 FL (86-99); PLATELET COUNT 192 K/uL (156-360); RBC DIS.WIDTH-CV 14.7 % (11.8-14.6); RBC DIS.WIDTH-SD 50.7 % (39-53); WHITE BLOOD COUNT 8.7 K/uL (4.1-10.2)
[2017-07-30 06:43] LABS: ANION GAP 8 MEQ/L (2-14); CHLORIDE 106 MEQ/L (99-109); GFR ESTIMATE (CALCULATED) > 59 mL/min/; GLUCOSE 97 mg/dL (70-99); SAMPLE HEMOLYSIS CHECK 0; SAMPLE ICTERIC CHECK 0; SAMPLE LIPEMIA CHECK 0; SODIUM 138 MEQ/L (136-147); UREA NITROGEN (BUN) 23 mg/dL (9-23)
[2017-07-30 08:12] VITALS: BP 123/76
[2017-07-30 12:31] VITALS: BP 116/72
== END 2017-07-30 16:30 | disposition home or self-care (01) | DRG 872 ==
LOC: EME 10:57 → 4EAST 14:11 → EDOF 14:11 → ENRESERV 14:14 → 4EAST 21:31 → ENRESERV 07-28 10:45 → 5EAST 07-28 21:48
PROVIDERS: Hospitalist; Physician Assistant
DX: A41.9 Sepsis, unspecified organism (principal); R19.7 Diarrhea, unspecified; N17.9 Acute kidney failure, unspecified; E87.1 Hypo-osmolality and hyponatremia; E86.0 Dehydration; I12.9 Hypertensive chronic kidney disease with stage 1 through stage 4 chronic kidney disease, or unspecified chronic kidney disease; N18.3 Chronic kidney disease, stage 3 (moderate); D63.1 Anemia in chronic kidney disease; E78.5 Hyperlipidemia, unspecified; M10.9 Gout, unspecified; E83.42 Hypomagnesemia; K21.9 Gastro-esophageal reflux disease without esophagitis; F41.9 Anxiety disorder, unspecified; F31.9 Bipolar disorder, unspecified; Z96.611 Presence of right artificial shoulder joint; Z96.653 Presence of artificial knee joint, bilateral; Q05.9 Spina bifida, unspecified; Z89.612 Acquired absence of left leg above knee; Z93.3 Colostomy status; Z90.5 Acquired absence of kidney; Z90.49 Acquired absence of other specified parts of digestive tract; Z88.2 Allergy status to sulfonamides; Z88.1 Allergy status to other antibiotic agents; Z88.0 Allergy status to penicillin; Z93.6 Other artificial openings of urinary tract status
CPT/HCPCS: 36600; 71020; 80048; 80048 91; 80053; 81003; 82803; 83605; 83735; 84484; 85014; 85018; 85025; 85027; 85610; 86850; 86900; 86901; 87040; 87086; 87493; 93005; 99281; 99285; C9113; J0696; J1644; J2405; J3260; J3370; J3475; J7030; J7050; Q0169; S0030; S0073

== ENCOUNTER 2017-08-10 16:22 | Inpatient (IN) | payer OTHER, BC ==
[~2017-08-10] VITALS: Ht 162.6 cm; Wt 68.5 kg
[2017-08-10 18:27] LABS: CHLORIDE 80 mEq/L (99-109); POTASSIUM 4.1 mEq/L (3.7-5.4); SODIUM 126 mEq/L (136-147)
[2017-08-10 18:28] LABS: GLUCOSE 124 mg/dL (70-99)
[2017-08-10 18:30] LABS: ANION GAP 22 MEQ/L (2-14)
[2017-08-10 18:32] LABS: GFR ESTIMATE (CALCULATED) 15 mL/min/
[2017-08-10 18:33] LABS: UREA NITROGEN (BUN) 76 mg/dL (9-23)
[2017-08-10 18:47] LABS: HEMATOCRIT 35.4 % (38.0-50.0); MCH 31.6 PG (29.0-34.0); MCHC 35.3 G/DL (30.0-36.0); MCV 89.4 FL (86-99); MEAN PLAT.VOLUME 10.7 uM^3 (9.0-12.4); PLATELET COUNT 286 K/uL (156-360); RBC DIS.WIDTH-CV 14.3 % (11.8-14.6); RBC DIS.WIDTH-SD 46.3 % (39-53); RED BLOOD COUNT 3.96 M/uL (4.00-5.50); WHITE BLOOD COUNT 8.8 K/uL (4.1-10.2)
[2017-08-10] MEDS ORDERED: PAIN RELIEF650 MG PO (19:06)
[2017-08-10] MEDS ORDERED: METAMUCIL0.52 GM PO (19:10)
[2017-08-10] MEDS ORDERED: METAMUCIL SUGA283 GM PO (19:13)
[2017-08-10 20:00] VITALS: BP 114/56
[2017-08-11] VITALS (7 sets, daily range): BP systolic 89–112; BP diastolic 56–74
[2017-08-11 06:51] LABS: HEMATOCRIT 30.5 % (38.0-50.0); MCH 30.3 PG (29.0-34.0); MCHC 34.1 G/DL (30.0-36.0); MCV 88.9 FL (86-99); MEAN PLAT.VOLUME 10.5 uM^3 (9.0-12.4); PLATELET COUNT 239 K/uL (156-360); RBC DIS.WIDTH-CV 14.1 % (11.8-14.6); RBC DIS.WIDTH-SD 45.4 % (39-53); RED BLOOD COUNT 3.43 M/uL (4.00-5.50); WHITE BLOOD COUNT 7.7 K/uL (4.1-10.2)
[2017-08-11 06:53] LABS: ALKALINE PHOSPHATASE 86 IU/L (3-129); ANION GAP 16 MEQ/L (2-14); CHLORIDE 83 MEQ/L (99-109); GFR ESTIMATE (CALCULATED) 17 mL/min/; GLUCOSE 133 mg/dL (70-99); SAMPLE HEMOLYSIS CHECK 0; SAMPLE ICTERIC CHECK 0; SAMPLE LIPEMIA CHECK 0; SODIUM 125 MEQ/L (136-147); TOTAL BILIRUBIN 0.5 MG/DL (0.0-1.0); UREA NITROGEN (BUN) 79 mg/dL (9-23)
[2017-08-11 12:45] LABS: C DIFF TOXIN NEGATIVE (NEGATIVE)
[2017-08-11 12:48] LABS: PROBE CHECK PASS; SPECIMEN PROCESSING CONTROL PASS
[2017-08-11 19:02] LABS: ANION GAP 11 MEQ/L (2-14); CHLORIDE 91 MEQ/L (99-109); GFR ESTIMATE (CALCULATED) 24 mL/min/; GLUCOSE 105 mg/dL (70-99); POTASSIUM 4.2 MEQ/L (3.7-5.4); SAMPLE HEMOLYSIS CHECK 0; SAMPLE ICTERIC CHECK 0; SAMPLE LIPEMIA CHECK 0; SODIUM 127 MEQ/L (136-147); UREA NITROGEN (BUN) 61 mg/dL (9-23)
[2017-08-12 00:10] VITALS: BP 99/58
[2017-08-12 04:47] VITALS: BP 94/62
[2017-08-12 05:23] LABS: EOSINOPHIL (%) 0.7 % (0-5); HEMATOCRIT 27.7 % (38.0-50.0); INSTRUMENT ABS NEUTROPHIL CT 4.6 K/uL; LYMPHOCYTE COUNT 0.7 K/uL (1.0-2.8); MCH 31.4 PG (29.0-34.0); MCHC 33.9 G/DL (30.0-36.0); MCV 92.6 FL (86-99); MEAN PLAT.VOLUME 10.3 uM^3 (9.0-12.4); MONOCYTE (%) 6.1 % (3-12); MONOCYTE COUNT 0.4 K/uL (0-0.8); NEUTROPHIL (%) 80.9 % (45-76); NEUTROPHIL COUNT 4.6 K/uL (1.8-6.4); PLATELET COUNT 185 K/uL (156-360); RBC DIS.WIDTH-CV 14.4 % (11.8-14.6); RBC DIS.WIDTH-SD 48.4 % (39-53); RED BLOOD COUNT 2.99 M/uL (4.00-5.50); WHITE BLOOD COUNT 5.7 K/uL (4.1-10.2)
[2017-08-12 05:54] LABS: ANION GAP 10 MEQ/L (2-14); CHLORIDE 98 MEQ/L (99-109); GFR ESTIMATE (CALCULATED) 32 mL/min/; GLUCOSE 108 mg/dL (70-99); MAGNESIUM 1.4 mg/dl (1.3-2.7); POTASSIUM 3.6 MEQ/L (3.7-5.4); SAMPLE HEMOLYSIS CHECK 0; SAMPLE ICTERIC CHECK 0; SAMPLE LIPEMIA CHECK 0; SODIUM 133 MEQ/L (136-147); UREA NITROGEN (BUN) 51 mg/dL (9-23)
[2017-08-12 07:28] VITALS: BP 108/70
[2017-08-12 11:57] VITALS: BP 98/57
[2017-08-12 16:23] VITALS: BP 94/59
[2017-08-12 23:30] VITALS: BP 100/56
[2017-08-13 06:15] LABS: ANION GAP 9 MEQ/L (2-14); CHLORIDE 107 MEQ/L (99-109); GLUCOSE 86 mg/dL (70-99); MAGNESIUM 1.3 mg/dl (1.3-2.7); POTASSIUM 3.6 MEQ/L (3.7-5.4); SAMPLE HEMOLYSIS CHECK 0; SAMPLE ICTERIC CHECK 0; SAMPLE LIPEMIA CHECK 0; SODIUM 139 MEQ/L (136-147); UREA NITROGEN (BUN) 29 mg/dL (9-23)
[2017-08-13 06:16] LABS: GFR ESTIMATE (CALCULATED) 58 mL/min/
[2017-08-13 08:00] VITALS: BP 112/64
[2017-08-13 10:35] VITALS: BP 108/62
[2017-08-13 15:08] VITALS: BP 111/74
[2017-08-13 22:40] VITALS: BP 105/56
[2017-08-14 06:20] LABS: EOSINOPHIL (%) 1.4 % (0-5); EOSINOPHIL COUNT 0.1 K/uL (0-0.3); HEMATOCRIT 27.8 % (38.0-50.0); IMMATURE GRANULOCYTE (%) 0.2 % (0.0-0.7); INSTRUMENT ABS NEUTROPHIL CT 3.9 K/uL; LYMPHOCYTE COUNT 0.9 K/uL (1.0-2.8); MCH 31.5 PG (29.0-34.0); MCHC 32.4 G/DL (30.0-36.0); MEAN PLAT.VOLUME 10.2 uM^3 (9.0-12.4); MONOCYTE COUNT 0.3 K/uL (0-0.8); NEUTROPHIL (%) 75.3 % (45-76); NEUTROPHIL COUNT 3.9 K/uL (1.8-6.4); PLATELET COUNT 191 K/uL (156-360); RBC DIS.WIDTH-CV 14.6 % (11.8-14.6); RED BLOOD COUNT 2.86 M/uL (4.00-5.50); WHITE BLOOD COUNT 5.1 K/uL (4.1-10.2)
[2017-08-14 06:25] LABS: MCV 97.2 FL (86-99)
[2017-08-14 06:32] LABS: ANION GAP 7 MEQ/L (2-14); CHLORIDE 106 MEQ/L (99-109); GFR ESTIMATE (CALCULATED) 53 mL/min/; GLUCOSE 85 mg/dL (70-99); MAGNESIUM 1.7 mg/dl (1.3-2.7); POTASSIUM 4.3 MEQ/L (3.7-5.4); SAMPLE HEMOLYSIS CHECK 0; SAMPLE ICTERIC CHECK 0; SAMPLE LIPEMIA CHECK 0; SODIUM 137 MEQ/L (136-147); UREA NITROGEN (BUN) 20 mg/dL (9-23)
[2017-08-14 07:22] VITALS: BP 99/58
[2017-08-14 15:58] VITALS: BP 115/69
[2017-08-14 22:48] VITALS: BP 85/49
[2017-08-15 00:25] VITALS: BP 96/42
[2017-08-15 06:35] VITALS: BP 103/56
[2017-08-15 06:42] LABS: EOSINOPHIL (%) 0.4 % (0-5); HEMATOCRIT 30.6 % (38.0-50.0); IMMATURE GRANULOCYTE (%) 0.4 % (0.0-0.7); INSTRUMENT ABS NEUTROPHIL CT 5.4 K/uL; LYMPHOCYTE COUNT 0.9 K/uL (1.0-2.8); MCH 31.7 PG (29.0-34.0); MCV 95.9 FL (86-99); MEAN PLAT.VOLUME 10.6 uM^3 (9.0-12.4); MONOCYTE (%) 7.2 % (3-12); MONOCYTE COUNT 0.5 K/uL (0-0.8); NEUTROPHIL (%) 78.8 % (45-76); NEUTROPHIL COUNT 5.4 K/uL (1.8-6.4); PLATELET COUNT 225 K/uL (156-360); RBC DIS.WIDTH-CV 14.8 % (11.8-14.6); RBC DIS.WIDTH-SD 51.8 % (39-53); RED BLOOD COUNT 3.19 M/uL (4.00-5.50); WHITE BLOOD COUNT 6.9 K/uL (4.1-10.2)
[2017-08-15 06:55] LABS: ANION GAP 14 MEQ/L (2-14); CHLORIDE 104 MEQ/L (99-109); GFR ESTIMATE (CALCULATED) 58 mL/min/; GLUCOSE 76 mg/dL (70-99); POTASSIUM 4.5 MEQ/L (3.7-5.4); SAMPLE HEMOLYSIS CHECK 0; SAMPLE ICTERIC CHECK 0; SAMPLE LIPEMIA CHECK 0; SODIUM 143 MEQ/L (136-147); TOTAL BILIRUBIN 0.6 MG/DL (0.0-1.0); UREA NITROGEN (BUN) 17 mg/dL (9-23)
[2017-08-15 06:59] LABS: ALKALINE PHOSPHATASE 227 IU/L (3-129)
[2017-08-15 08:36] LABS: MAGNESIUM 1.6 mg/dl (1.3-2.7)
[2017-08-15 16:17] VITALS: BP 109/57
[2017-08-15 23:09] VITALS: BP 107/59
[2017-08-16 06:43] LABS: EOSINOPHIL (%) 3.3 % (0-5); EOSINOPHIL COUNT 0.2 K/uL (0-0.3); HEMATOCRIT 29.1 % (38.0-50.0); IMMATURE GRANULOCYTE (%) 0.2 % (0.0-0.7); INSTRUMENT ABS NEUTROPHIL CT 3.8 K/uL; MCH 30.2 PG (29.0-34.0); MCHC 30.9 G/DL (30.0-36.0); MCV 97.7 FL (86-99); MEAN PLAT.VOLUME 9.6 uM^3 (9.0-12.4); MONOCYTE (%) 8.7 % (3-12); MONOCYTE COUNT 0.5 K/uL (0-0.8); NEUTROPHIL (%) 69.5 % (45-76); NEUTROPHIL COUNT 3.8 K/uL (1.8-6.4); PLATELET COUNT 189 K/uL (156-360); RBC DIS.WIDTH-CV 14.6 % (11.8-14.6); RBC DIS.WIDTH-SD 51.7 % (39-53); RED BLOOD COUNT 2.98 M/uL (4.00-5.50); WHITE BLOOD COUNT 5.4 K/uL (4.1-10.2)
[2017-08-16 07:06] LABS: ANION GAP 7 MEQ/L (2-14); CHLORIDE 103 MEQ/L (99-109); GFR ESTIMATE (CALCULATED) > 59 mL/min/; GLUCOSE 88 mg/dL (70-99); POTASSIUM 4.2 MEQ/L (3.7-5.4); SAMPLE HEMOLYSIS CHECK 0; SAMPLE ICTERIC CHECK 0; SAMPLE LIPEMIA CHECK 0; UREA NITROGEN (BUN) 14 mg/dL (9-23)
[2017-08-16 07:09] LABS: ALKALINE PHOSPHATASE 168 IU/L (3-129); MAGNESIUM 1.2 mg/dl (1.3-2.7); SODIUM 134 MEQ/L (136-147); TOTAL BILIRUBIN 0.4 MG/DL (0.0-1.0)
[2017-08-16 08:30] VITALS: BP 109/55
[2017-08-16 15:32] VITALS: BP 111/53
[2017-08-16 19:55] VITALS: BP 110/65
[2017-08-16 23:13] VITALS: BP 106/59
[2017-08-17 00:34] VITALS: BP 114/68
[2017-08-17 06:36] LABS: EOSINOPHIL (%) 4.5 % (0-5); EOSINOPHIL COUNT 0.2 K/uL (0-0.3); HEMATOCRIT 28.3 % (38.0-50.0); IMMATURE GRANULOCYTE (%) 0.2 % (0.0-0.7); INSTRUMENT ABS NEUTROPHIL CT 3.2 K/uL; MCH 30.1 PG (29.0-34.0); MCHC 31.4 G/DL (30.0-36.0); MCV 95.6 FL (86-99); MEAN PLAT.VOLUME 9.9 uM^3 (9.0-12.4); MONOCYTE (%) 7.8 % (3-12); MONOCYTE COUNT 0.4 K/uL (0-0.8); NEUTROPHIL (%) 66.4 % (45-76); NEUTROPHIL COUNT 3.2 K/uL (1.8-6.4); PLATELET COUNT 206 K/uL (156-360); RBC DIS.WIDTH-CV 14.2 % (11.8-14.6); RBC DIS.WIDTH-SD 50.1 % (39-53); RED BLOOD COUNT 2.96 M/uL (4.00-5.50); WHITE BLOOD COUNT 4.9 K/uL (4.1-10.2)
[2017-08-17 07:09] VITALS: BP 103/58
[2017-08-17 07:09] LABS: ALKALINE PHOSPHATASE 140 IU/L (3-129); ANION GAP 9 MEQ/L (2-14); CHLORIDE 102 MEQ/L (99-109); GFR ESTIMATE (CALCULATED) > 59 mL/min/; GLUCOSE 82 mg/dL (70-99); POTASSIUM 4.4 MEQ/L (3.7-5.4); SAMPLE HEMOLYSIS CHECK 0; SAMPLE ICTERIC CHECK 0; SAMPLE LIPEMIA CHECK 0; SODIUM 135 MEQ/L (136-147); TOTAL BILIRUBIN 0.4 MG/DL (0.0-1.0); UREA NITROGEN (BUN) 15 mg/dL (9-23)
[2017-08-17 07:13] LABS: MAGNESIUM 1.6 mg/dl (1.3-2.7)
[2017-08-17 07:57] VITALS: BP 127/62
[2017-08-17] MEDS ORDERED: CHOLESTYRAMINE P4 GM PO (10:35)
[2017-08-17] MEDS ORDERED: LOPERAMIDE2 MG PO (10:35)
[2017-08-17 11:16] VITALS: BP 134/65
[2017-08-20] MEDS ORDERED: GATTEX5 MG SC (12:58)
== END 2017-08-17 12:36 | disposition home or self-care (01) | DRG 641 ==
LOC: EME 16:22 → EDOF 23:12 → ENRESERV 23:20 → 5EAST 23:36 → EDOF 23:36 → ENRESERV 23:44 → 5EAST 08-11 00:26
PROVIDERS: Emergency Medicine; Hospitalist; Internal Medicine; Internal Medicine Nephrology
DX: E86.0 Dehydration (principal); K91.2 Postsurgical malabsorption, not elsewhere classified; N25.81 Secondary hyperparathyroidism of renal origin; E87.2 Acidosis; E78.00 Pure hypercholesterolemia, unspecified; F41.9 Anxiety disorder, unspecified; E66.9 Obesity, unspecified; I10 Essential (primary) hypertension; D64.9 Anemia, unspecified; R39.2 Extrarenal uremia; E83.39 Other disorders of phosphorus metabolism; E83.42 Hypomagnesemia; E86.1 Hypovolemia; E87.1 Hypo-osmolality and hyponatremia; E87.6 Hypokalemia; E87.8 Other disorders of electrolyte and fluid balance, not elsewhere classified; F31.9 Bipolar disorder, unspecified; J44.9 Chronic obstructive pulmonary disease, unspecified; K21.9 Gastro-esophageal reflux disease without esophagitis; M10.9 Gout, unspecified; Z90.49 Acquired absence of other specified parts of digestive tract; Q05.9 Spina bifida, unspecified; Z80.42 Family history of malignant neoplasm of prostate; Z82.49 Family history of ischemic heart disease and other diseases of the circulatory system; Z87.19 Personal history of other diseases of the digestive system; Z93.2 Ileostomy status; Z93.3 Colostomy status; Z93.6 Other artificial openings of urinary tract status; Z96.653 Presence of artificial knee joint, bilateral; Z89.612 Acquired absence of left leg above knee; Z86.19 Personal history of other infectious and parasitic diseases; Z90.5 Acquired absence of kidney; Z88.2 Allergy status to sulfonamides; Z88.0 Allergy status to penicillin; Z88.1 Allergy status to other antibiotic agents; Z68.25 Body mass index [BMI] 25.0-25.9, adult
CPT/HCPCS: 36415; 74000; 80048 91; 80053; 80069; 82570; 83735; 83970; 84100; 84156; 85025; 85027; 87493; 93005; 99281; 99284; J1644; J2270; J2405; J3475; J3480; J7030

== ENCOUNTER 2017-08-20 22:56 | Inpatient (IN) | payer OTHER, BC ==
[~2017-08-20] VITALS: Ht 157.5 cm; Wt 75.2 kg
[~2017-08-20 22:56] MED LIST changes: +CHOLESTYRAMINE P4 GM PO; +GATTEX5 MG SC; +METAMUCIL SUGA283 GM PO; +METAMUCIL0.52 GM PO
[2017-08-21 00:06] LABS: EOSINOPHIL (%) 1.3 % (0-5); EOSINOPHIL COUNT 0.1 K/uL (0-0.3); HEMATOCRIT 33.1 % (38.0-50.0); IMMATURE GRANULOCYTE (%) 0.4 % (0.0-0.7); INSTRUMENT ABS NEUTROPHIL CT 7.5 K/uL; LYMPHOCYTE COUNT 1.2 K/uL (1.0-2.8); MCH 30.5 PG (29.0-34.0); MCHC 32.3 G/DL (30.0-36.0); MCV 94.3 FL (86-99); MEAN PLAT.VOLUME 9.9 uM^3 (9.0-12.4); MONOCYTE (%) 6.2 % (3-12); MONOCYTE COUNT 0.6 K/uL (0-0.8); NEUTROPHIL (%) 78.9 % (45-76); NEUTROPHIL COUNT 7.5 K/uL (1.8-6.4); RBC DIS.WIDTH-CV 14.2 % (11.8-14.6); RBC DIS.WIDTH-SD 48.4 % (39-53); RED BLOOD COUNT 3.51 M/uL (4.00-5.50); WHITE BLOOD COUNT 9.5 K/uL (4.1-10.2)
[2017-08-21 00:08] LABS: PLATELET COUNT 319 K/uL (156-360)
[2017-08-21 00:16] LABS: CHLORIDE 105 mEq/L (99-109); POTASSIUM 4.1 mEq/L (3.7-5.4); SODIUM 136 mEq/L (136-147)
[2017-08-21 00:18] LABS: GLUCOSE 88 mg/dL (70-99)
[2017-08-21 00:19] LABS: ANION GAP 14 MEQ/L (2-14)
[2017-08-21 00:20] LABS: TOTAL BILIRUBIN 0.2 mg/dL (0.0-1.0)
[2017-08-21 00:22] LABS: ALKALINE PHOSPHATASE 108 IU/L (3-129); GFR ESTIMATE (CALCULATED) 58 mL/min/
[2017-08-21 00:23] LABS: UREA NITROGEN (BUN) 13 mg/dL (9-23)
[2017-08-21 00:25] LABS: LIPASE 35 U/L (1.0-51.0)
[2017-08-21 04:52] VITALS: BP 122/68
[2017-08-21 06:45] LABS: EOSINOPHIL (%) 1.2 % (0-5); EOSINOPHIL COUNT 0.1 K/uL (0-0.3); HEMATOCRIT 29.4 % (38.0-50.0); IMMATURE GRANULOCYTE (%) 0.3 % (0.0-0.7); INSTRUMENT ABS NEUTROPHIL CT 5.1 K/uL; LYMPHOCYTE COUNT 1.1 K/uL (1.0-2.8); MCH 31.2 PG (29.0-34.0); MCHC 32.7 G/DL (30.0-36.0); MCV 95.5 FL (86-99); MEAN PLAT.VOLUME 9.9 uM^3 (9.0-12.4); MONOCYTE (%) 8.8 % (3-12); MONOCYTE COUNT 0.6 K/uL (0-0.8); NEUTROPHIL (%) 72.9 % (45-76); NEUTROPHIL COUNT 5.1 K/uL (1.8-6.4); PLATELET COUNT 258 K/uL (156-360); RBC DIS.WIDTH-CV 14.5 % (11.8-14.6); RBC DIS.WIDTH-SD 49.9 % (39-53); RED BLOOD COUNT 3.08 M/uL (4.00-5.50); WHITE BLOOD COUNT 6.9 K/uL (4.1-10.2)
[2017-08-21 07:13] LABS: ANION GAP 10 MEQ/L (2-14); CHLORIDE 107 MEQ/L (99-109); GFR ESTIMATE (CALCULATED) > 59 mL/min/; GLUCOSE 93 mg/dL (70-99); POTASSIUM 3.8 MEQ/L (3.7-5.4); SAMPLE HEMOLYSIS CHECK 0; SAMPLE ICTERIC CHECK 0; SAMPLE LIPEMIA CHECK 0; SODIUM 141 MEQ/L (136-147); UREA NITROGEN (BUN) 13 mg/dL (9-23)
[2017-08-21 08:23] VITALS: BP 124/78
[2017-08-21 12:00] VITALS: BP 129/76
[2017-08-21 17:37] VITALS: BP 130/79
[2017-08-21 23:38] VITALS: BP 98/58
[2017-08-22 04:54] LABS: HEMATOCRIT 27.3 % (38.0-50.0); MCH 30.3 PG (29.0-34.0); MCHC 31.5 G/DL (30.0-36.0); MCV 96.1 FL (86-99); MEAN PLAT.VOLUME 9.6 uM^3 (9.0-12.4); PLATELET COUNT 235 K/uL (156-360); RBC DIS.WIDTH-CV 14.6 % (11.8-14.6); RBC DIS.WIDTH-SD 51.1 % (39-53); RED BLOOD COUNT 2.84 M/uL (4.00-5.50); WHITE BLOOD COUNT 7.5 K/uL (4.1-10.2)
[2017-08-22 05:09] LABS: CHLORIDE 112 mEq/L (99-109); POTASSIUM 3.7 mEq/L (3.7-5.4); SODIUM 139 mEq/L (136-147)
[2017-08-22 05:12] LABS: ANION GAP 8 MEQ/L (2-14)
[2017-08-22 05:14] LABS: GFR ESTIMATE (CALCULATED) > 59 mL/min/
[2017-08-22 05:15] LABS: UREA NITROGEN (BUN) 10 mg/dL (9-23)
[2017-08-22 05:19] LABS: GLUCOSE 117 mg/dL (70-99)
[2017-08-22 07:46] VITALS: BP 100/64
[2017-08-22 11:54] VITALS: BP 110/59
[2017-08-22 16:58] VITALS: BP 103/61
[2017-08-22 19:53] VITALS: BP 119/73
[2017-08-22 23:49] VITALS: BP 110/59
[2017-08-23 04:33] VITALS: BP 119/64
[2017-08-23 07:24] VITALS: BP 114/60
[2017-08-23 07:46] LABS: ANION GAP 11 MEQ/L (2-14); CHLORIDE 109 MEQ/L (99-109); GFR ESTIMATE (CALCULATED) > 59 mL/min/; GLUCOSE 113 mg/dL (70-99); POTASSIUM 4.3 MEQ/L (3.7-5.4); SAMPLE HEMOLYSIS CHECK 0; SAMPLE ICTERIC CHECK 0; SAMPLE LIPEMIA CHECK 0; SODIUM 141 MEQ/L (136-147); UREA NITROGEN (BUN) 13 mg/dL (9-23)
[2017-08-23 11:42] VITALS: BP 108/60
[2017-08-23] MEDS ORDERED: PREDNISONE10 MG PO (13:30)
== END 2017-08-23 15:05 | disposition home or self-care (01) | DRG 389 ==
LOC: EME 22:56 → 3EAST 08-21 02:40 → EDOF 08-21 02:40 → ENRESERV 08-21 02:41 → 3EAST 08-21 04:27
PROVIDERS: Emergency Medicine; Family Medicine; Hospitalist; Thoracic Surgery (Cardiothoracic Vascular Surgery)
DX: K56.51 Intestinal adhesions [bands], with partial obstruction (principal); E87.2 Acidosis; I12.9 Hypertensive chronic kidney disease with stage 1 through stage 4 chronic kidney disease, or unspecified chronic kidney disease; N18.3 Chronic kidney disease, stage 3 (moderate); I25.10 Atherosclerotic heart disease of native coronary artery without angina pectoris; E78.5 Hyperlipidemia, unspecified; M10.9 Gout, unspecified; K21.9 Gastro-esophageal reflux disease without esophagitis; F32.9 Major depressive disorder, single episode, unspecified; F41.9 Anxiety disorder, unspecified; Z96.651 Presence of right artificial knee joint; E66.9 Obesity, unspecified; Z68.30 Body mass index [BMI] 30.0-30.9, adult; Z93.2 Ileostomy status; Z89.612 Acquired absence of left leg above knee; Z93.6 Other artificial openings of urinary tract status; Z90.49 Acquired absence of other specified parts of digestive tract; Z90.5 Acquired absence of kidney; Z88.6 Allergy status to analgesic agent
CPT/HCPCS: 71010; 74020; 74176; 80048; 80053; 83605; 83690; 83735; 84100; 85025; 85027; 93971; 94640; 96365; 99281; 99285; J1650; J2270; J2405; J2930; J3010; J3480; J7030; J7042; J7512; S0028

== ENCOUNTER 2017-09-10 14:48 | Inpatient (IN) | payer OTHER, BC ==
[~2017-09-10] VITALS: Ht 157.5 cm; Wt 69.0 kg
[~2017-09-10 14:48] MED LIST changes: +PAXIL30 MG PO; +PREDNISONE10 MG PO; +PREDNISONE20 MG PO
[2017-09-10 16:12] LABS: HEMATOCRIT 33.8 % (38.0-50.0); MCH 29.6 PG (29.0-34.0); MCHC 31.7 G/DL (30.0-36.0); MCV 93.4 FL (86-99); MEAN PLAT.VOLUME 10.2 uM^3 (9.0-12.4); PLATELET COUNT 252 K/uL (156-360); RBC DIS.WIDTH-SD 47.7 % (39-53); RED BLOOD COUNT 3.62 M/uL (4.00-5.50); WHITE BLOOD COUNT 7.9 K/uL (4.1-10.2)
[2017-09-10 16:30] LABS: CHLORIDE 107 mEq/L (99-109); POTASSIUM 4.6 mEq/L (3.7-5.4); SODIUM 138 mEq/L (136-147)
[2017-09-10 16:32] LABS: GLUCOSE 84 mg/dL (70-99)
[2017-09-10 16:33] LABS: ANION GAP 12 MEQ/L (2-14)
[2017-09-10 16:34] LABS: TOTAL BILIRUBIN 0.4 mg/dL (0.0-1.0)
[2017-09-10 16:36] LABS: ALKALINE PHOSPHATASE 231 IU/L (3-129); GFR ESTIMATE (CALCULATED) > 59 mL/min/
[2017-09-10 16:37] LABS: UREA NITROGEN (BUN) 13 mg/dL (9-23)
[2017-09-10 16:40] LABS: ADD MIUA? YES; BILIRUBIN NEGATIVE; BLOOD SMALL; COLOR YELLOW ((YELLOW)); GLUCOSE (STRIP) NEGATIVE; KETONES NEGATIVE; LEUKOCYTES LARGE; NITRITE NEGATIVE; PROTEIN (STRIP) 30; SPECIFIC GRAVITY 1.017 (1.000-1.030); UROBILINOGEN 0.2 MG/DL (0.2-1.0)
[2017-09-10 17:01] LABS: BACTERIA RARE /HPF; EPITHELIAL CELLS RARE /HPF; MUCUS 1+ /LPF; RED BLOOD CELLS 20-30 /HPF (0-5); UCUL ADDED? YES; WHITE BLOOD CELLS TNTC /HPF (0-5); WHITE BLOOD CELLS CLUMP FEW /HPF (0-5)
[2017-09-11 02:27] VITALS: BP 130/69
[2017-09-11 06:15] LABS: EOSINOPHIL (%) 0.6 % (0-5); EOSINOPHIL COUNT 0.1 K/uL (0-0.3); HEMATOCRIT 28.4 % (38.0-50.0); IMMATURE GRANULOCYTE (%) 0.4 % (0.0-0.7); INSTRUMENT ABS NEUTROPHIL CT 6.7 K/uL; LYMPHOCYTE COUNT 0.7 K/uL (1.0-2.8); MCHC 31.7 G/DL (30.0-36.0); MCV 94.7 FL (86-99); MEAN PLAT.VOLUME 10.2 uM^3 (9.0-12.4); MONOCYTE (%) 5.3 % (3-12); MONOCYTE COUNT 0.4 K/uL (0-0.8); NEUTROPHIL COUNT 6.7 K/uL (1.8-6.4); PLATELET COUNT 211 K/uL (156-360); RBC DIS.WIDTH-CV 14.2 % (11.8-14.6); WHITE BLOOD COUNT 7.9 K/uL (4.1-10.2)
[2017-09-11 06:48] LABS: ANION GAP 8 MEQ/L (2-14); CHLORIDE 108 MEQ/L (99-109); GFR ESTIMATE (CALCULATED) > 59 mL/min/; GLUCOSE 95 mg/dL (70-99); POTASSIUM 3.8 MEQ/L (3.7-5.4); SAMPLE HEMOLYSIS CHECK 0; SAMPLE ICTERIC CHECK 0; SAMPLE LIPEMIA CHECK 0; SODIUM 140 MEQ/L (136-147); UREA NITROGEN (BUN) 12 mg/dL (9-23)
[2017-09-11 08:42] VITALS: BP 122/72
[2017-09-11 10:14] LABS: ALKALINE PHOSPHATASE 182 IU/L (3-129); DIRECT BILIRUBIN 0.1 mg/dL (0.0-0.3); LIPASE 20 U/L (1.0-51.0); TOTAL BILIRUBIN 0.4 MG/DL (0.0-1.0)
[2017-09-11 10:24] LABS: MAGNESIUM 1.5 mg/dl (1.3-2.7)
[2017-09-11 15:14] VITALS: BP 123/66
[2017-09-11 22:50] VITALS: BP 133/71
[2017-09-12 06:03] LABS: EOSINOPHIL (%) 1.8 % (0-5); EOSINOPHIL COUNT 0.1 K/uL (0-0.3); HEMATOCRIT 28.8 % (38.0-50.0); IMMATURE GRANULOCYTE (%) 0.2 % (0.0-0.7); INSTRUMENT ABS NEUTROPHIL CT 4.3 K/uL; LYMPHOCYTE COUNT 0.8 K/uL (1.0-2.8); MCH 28.9 PG (29.0-34.0); MCHC 30.6 G/DL (30.0-36.0); MCV 94.7 FL (86-99); MEAN PLAT.VOLUME 10.1 uM^3 (9.0-12.4); MONOCYTE (%) 5.9 % (3-12); MONOCYTE COUNT 0.3 K/uL (0-0.8); NEUTROPHIL (%) 76.8 % (45-76); NEUTROPHIL COUNT 4.3 K/uL (1.8-6.4); PLATELET COUNT 212 K/uL (156-360); RBC DIS.WIDTH-CV 14.3 % (11.8-14.6); RBC DIS.WIDTH-SD 49.5 % (39-53); RED BLOOD COUNT 3.04 M/uL (4.00-5.50); WHITE BLOOD COUNT 5.6 K/uL (4.1-10.2)
[2017-09-12 07:01] LABS: ALKALINE PHOSPHATASE 124 IU/L (3-129); ANION GAP 9 MEQ/L (2-14); CHLORIDE 107 MEQ/L (99-109); GFR ESTIMATE (CALCULATED) > 59 mL/min/; GLUCOSE 81 mg/dL (70-99); POTASSIUM 3.9 MEQ/L (3.7-5.4); SAMPLE HEMOLYSIS CHECK 0; SAMPLE ICTERIC CHECK 0; SAMPLE LIPEMIA CHECK 0; SODIUM 139 MEQ/L (136-147); TOTAL BILIRUBIN 0.4 MG/DL (0.0-1.0); UREA NITROGEN (BUN) 9 mg/dL (9-23)
[2017-09-12 08:38] VITALS: BP 171/76
[2017-09-12 16:05] VITALS: BP 127/89
[2017-09-12 22:00] VITALS: BP 125/73; BP 166/74
[2017-09-13] VITALS: BP 125/73
[2017-09-13 05:48] LABS: EOSINOPHIL COUNT 0.2 K/uL (0-0.3); HEMATOCRIT 29.1 % (38.0-50.0); IMMATURE GRANULOCYTE (%) 0.2 % (0.0-0.7); INSTRUMENT ABS NEUTROPHIL CT 3.5 K/uL; MCH 28.5 PG (29.0-34.0); MCHC 30.6 G/DL (30.0-36.0); MCV 93.3 FL (86-99); MEAN PLAT.VOLUME 10.1 uM^3 (9.0-12.4); MONOCYTE (%) 7.5 % (3-12); MONOCYTE COUNT 0.4 K/uL (0-0.8); NEUTROPHIL (%) 69.9 % (45-76); NEUTROPHIL COUNT 3.5 K/uL (1.8-6.4); PLATELET COUNT 219 K/uL (156-360); RBC DIS.WIDTH-CV 13.6 % (11.8-14.6); RBC DIS.WIDTH-SD 46.2 % (39-53); RED BLOOD COUNT 3.12 M/uL (4.00-5.50); WHITE BLOOD COUNT 5.1 K/uL (4.1-10.2)
[2017-09-13 06:22] LABS: ALKALINE PHOSPHATASE 100 IU/L (3-129); ANION GAP 7 MEQ/L (2-14); CHLORIDE 109 MEQ/L (99-109); GFR ESTIMATE (CALCULATED) > 59 mL/min/; GLUCOSE 88 mg/dL (70-99); MAGNESIUM 1.8 mg/dl (1.3-2.7); POTASSIUM 3.9 MEQ/L (3.7-5.4); SAMPLE HEMOLYSIS CHECK 0; SAMPLE ICTERIC CHECK 0; SAMPLE LIPEMIA CHECK 0; SODIUM 141 MEQ/L (136-147); TOTAL BILIRUBIN 0.4 MG/DL (0.0-1.0); UREA NITROGEN (BUN) 6 mg/dL (9-23)
[2017-09-13 07:42] VITALS: BP 126/70
[2017-09-13] MEDS ORDERED: CIPROFLOXACIN H10 ML BOTH EYES (11:34)
[2017-09-13] MEDS ORDERED: CIPRO500 MG PO (11:34)
== END 2017-09-13 13:30 | disposition home or self-care (01) | DRG 389 ==
LOC: EME 14:48 → EDOF 23:15 → 5EAST 23:15 → ENRESERV 23:17 → 5EAST 09-11 02:09 → ENPENDDIS 09-13 → 5EAST 09-13 13:30
PROVIDERS: Hospitalist
DX: K56.50 Intestinal adhesions [bands], unspecified as to partial versus complete obstruction (principal); E78.5 Hyperlipidemia, unspecified; I10 Essential (primary) hypertension; R79.89 Other specified abnormal findings of blood chemistry; N39.0 Urinary tract infection, site not specified; D64.9 Anemia, unspecified; M10.9 Gout, unspecified; J43.9 Emphysema, unspecified; K21.9 Gastro-esophageal reflux disease without esophagitis; I25.10 Atherosclerotic heart disease of native coronary artery without angina pectoris; R01.1 Cardiac murmur, unspecified; Z96.653 Presence of artificial knee joint, bilateral; E86.0 Dehydration; B96.1 Klebsiella pneumoniae [K. pneumoniae] as the cause of diseases classified elsewhere; G89.29 Other chronic pain; M54.9 Dorsalgia, unspecified; Z90.5 Acquired absence of kidney; Z89.612 Acquired absence of left leg above knee; Z90.49 Acquired absence of other specified parts of digestive tract; Z93.3 Colostomy status; Q05.9 Spina bifida, unspecified; Z93.6 Other artificial openings of urinary tract status; Z87.442 Personal history of urinary calculi
CPT/HCPCS: 74020; 74022; 74176; 80048; 80053; 80076; 81003; 83690; 83735; 85025; 85027; 87077; 87086; 87186; 99281; 99285; J0696; J1170; J1650; J2270; J2405; J3475; J7030; J7050; S0028

== ENCOUNTER 2017-09-24 00:44 | Inpatient (IN) | payer OTHER, BC ==
[~2017-09-24] VITALS: Ht 157.5 cm; Wt 69.0 kg
[~2017-09-24 00:44] MED LIST changes: +CIPRO500 MG PO; +CIPROFLOXACIN H10 ML BOTH EYES
[2017-09-24 01:17] LABS: HEMATOCRIT 34.7 % (38.0-50.0); MCH 28.9 PG (29.0-34.0); MCHC 31.7 G/DL (30.0-36.0); MCV 91.3 FL (86-99); MEAN PLAT.VOLUME 10.4 uM^3 (9.0-12.4); RBC DIS.WIDTH-CV 14.2 % (11.8-14.6); RBC DIS.WIDTH-SD 47.6 % (39-53); WHITE BLOOD COUNT 10.3 K/uL (4.1-10.2)
[2017-09-24 01:20] LABS: PLATELET COUNT 319 K/uL (156-360)
[2017-09-24 01:32] LABS: CHLORIDE 103 mEq/L (99-109); POTASSIUM 3.6 mEq/L (3.7-5.4); SODIUM 137 mEq/L (136-147)
[2017-09-24 01:34] LABS: GLUCOSE 103 mg/dL (70-99)
[2017-09-24 01:35] LABS: ANION GAP 14 MEQ/L (2-14)
[2017-09-24 01:36] LABS: TOTAL BILIRUBIN 0.4 mg/dL (0.0-1.0)
[2017-09-24 01:38] LABS: ALKALINE PHOSPHATASE 87 IU/L (3-129); GFR ESTIMATE (CALCULATED) 53 mL/min/
[2017-09-24 01:39] LABS: UREA NITROGEN (BUN) 16 mg/dL (9-23)
[2017-09-24 03:13] LABS: ADD MIUA? YES; BILIRUBIN NEGATIVE; BLOOD SMALL; COLOR YELLOW ((YELLOW)); GLUCOSE (STRIP) NEGATIVE; KETONES NEGATIVE; LEUKOCYTES TRACE; NITRITE NEGATIVE; PROTEIN (STRIP) 30; SPECIFIC GRAVITY 1.016 (1.000-1.030); UROBILINOGEN 0.2 MG/DL (0.2-1.0)
[2017-09-24 03:20] LABS: BACTERIA RARE /HPF; EPITHELIAL CELLS NONE SEEN /HPF; MUCUS TRACE /LPF; UCUL ADDED? YES; WHITE BLOOD CELLS 30-40 /HPF (0-5)
[2017-09-24 05:20] VITALS: BP 127/75
[2017-09-24 05:35] VITALS: BP 127/75
[2017-09-24 07:11] LABS: METH RESISTANT S AUREUS PCR NEGATIVE (NEGATIVE)
[2017-09-24 07:14] LABS: PROBE CHECK PASS; SPECIMEN PROCESSING CONTROL PASS
[2017-09-24 08:03] VITALS: BP 145/81
[2017-09-24 11:55] VITALS: BP 138/80
[2017-09-24] MEDS ORDERED: PAIN RELIEF650 MG PO (13:28)
[2017-09-24 15:56] VITALS: BP 147/76
[2017-09-24 19:44] VITALS: BP 129/70
[2017-09-25 00:09] VITALS: BP 141/63
[2017-09-25 04:09] VITALS: BP 146/76
[2017-09-25 06:21] LABS: HEMATOCRIT 30.8 % (38.0-50.0); MCH 29.2 PG (29.0-34.0); MCHC 30.8 G/DL (30.0-36.0); MCV 94.8 FL (86-99); MEAN PLAT.VOLUME 10.3 uM^3 (9.0-12.4); PLATELET COUNT 256 K/uL (156-360); RBC DIS.WIDTH-CV 14.3 % (11.8-14.6); RBC DIS.WIDTH-SD 49.8 % (39-53); RED BLOOD COUNT 3.25 M/uL (4.00-5.50); WHITE BLOOD COUNT 5.4 K/uL (4.1-10.2)
[2017-09-25 06:43] LABS: ANION GAP 11 MEQ/L (2-14); CHLORIDE 108 MEQ/L (99-109); GFR ESTIMATE (CALCULATED) > 59 mL/min/; GLUCOSE 78 mg/dL (70-99); POTASSIUM 3.7 MEQ/L (3.7-5.4); SAMPLE HEMOLYSIS CHECK 0; SAMPLE ICTERIC CHECK 0; SAMPLE LIPEMIA CHECK 0; SODIUM 143 MEQ/L (136-147); UREA NITROGEN (BUN) 13 mg/dL (9-23)
[2017-09-25 07:27] VITALS: BP 136/77
[2017-09-25 15:38] VITALS: BP 136/63
[2017-09-26 00:02] VITALS: BP 148/79
[2017-09-26 06:42] LABS: CHLORIDE 110 mEq/L (99-109); POTASSIUM 3.5 mEq/L (3.7-5.4); SODIUM 139 mEq/L (136-147)
[2017-09-26 06:44] LABS: GLUCOSE 89 mg/dL (70-99)
[2017-09-26 06:45] LABS: ANION GAP 9 MEQ/L (2-14)
[2017-09-26 06:48] LABS: GFR ESTIMATE (CALCULATED) > 59 mL/min/
[2017-09-26 06:49] LABS: UREA NITROGEN (BUN) 8 mg/dL (9-23)
[2017-09-26 07:12] LABS: EOSINOPHIL (%) 3.1 % (0-5); EOSINOPHIL COUNT 0.1 K/uL (0-0.3); HEMATOCRIT 28.8 % (38.0-50.0); IMMATURE GRANULOCYTE (%) 0.2 % (0.0-0.7); INSTRUMENT ABS NEUTROPHIL CT 2.6 K/uL; LYMPHOCYTE COUNT 1.1 K/uL (1.0-2.8); MCH 29.8 PG (29.0-34.0); MCHC 32.3 G/DL (30.0-36.0); MCV 92.3 FL (86-99); MEAN PLAT.VOLUME 10.4 uM^3 (9.0-12.4); MONOCYTE (%) 8.5 % (3-12); MONOCYTE COUNT 0.4 K/uL (0-0.8); NEUTROPHIL (%) 60.7 % (45-76); NEUTROPHIL COUNT 2.6 K/uL (1.8-6.4); PLATELET COUNT 246 K/uL (156-360); RBC DIS.WIDTH-CV 13.9 % (11.8-14.6); RBC DIS.WIDTH-SD 47.2 % (39-53); RED BLOOD COUNT 3.12 M/uL (4.00-5.50); WHITE BLOOD COUNT 4.3 K/uL (4.1-10.2)
[2017-09-26 08:20] VITALS: BP 146/71
[2017-09-26] MEDS ORDERED: CIPROFLOXACIN500 M1 PO (10:29)
[2017-09-27] MEDS ORDERED: ZOFRAN4 MG PO (08:49)
[2017-09-27] MEDS ORDERED: TYLENOL ARTHRI650 MG PO ×2 (08:50)
[2017-09-27] MEDS ORDERED: IMODIUM A-D2 M2 PO (08:51)
[2017-09-27] MEDS ORDERED: CIPRO500 MG PO (08:53)
[2017-10-01] MEDS ORDERED: EMLA CREAM30 GM TP (08:57)
== END 2017-09-26 12:36 | disposition home or self-care (01) | DRG 390 ==
LOC: EME 00:44 → EDOF 04:21 → ENRESERV 04:22 → 3EAST 05:13
PROVIDERS: Internal Medicine; Student in an Organized Health Care Education/Training Program
DX: K56.51 Intestinal adhesions [bands], with partial obstruction (principal); E86.0 Dehydration; I10 Essential (primary) hypertension; E78.5 Hyperlipidemia, unspecified; I25.10 Atherosclerotic heart disease of native coronary artery without angina pectoris; J44.9 Chronic obstructive pulmonary disease, unspecified; Q05.9 Spina bifida, unspecified; K21.9 Gastro-esophageal reflux disease without esophagitis; F41.1 Generalized anxiety disorder; M10.9 Gout, unspecified; D64.9 Anemia, unspecified; K44.9 Diaphragmatic hernia without obstruction or gangrene; Z93.6 Other artificial openings of urinary tract status; Z89.612 Acquired absence of left leg above knee; Z90.49 Acquired absence of other specified parts of digestive tract; Z90.5 Acquired absence of kidney; Z93.2 Ileostomy status; Z96.651 Presence of right artificial knee joint; Z82.49 Family history of ischemic heart disease and other diseases of the circulatory system; Z80.42 Family history of malignant neoplasm of prostate; Z80.0 Family history of malignant neoplasm of digestive organs
CPT/HCPCS: 74000; 74176; 80048; 80053; 81003; 85025; 85027; 87086; 87641; 96365; 99281; 99285; J1650; J2270; J2405; J3480; J7030; S0028

== ENCOUNTER 2017-09-29 09:45 | Day surgery (SDC) | payer OTHER, BC ==
[~2017-09-29] VITALS: Ht 157.5 cm; Wt 68.0 kg
[~2017-09-29 09:45] MED LIST changes: +CIPROFLOXACIN500 M1 PO; +IMODIUM A-D2 M2 PO
[2017-09-29 10:24] VITALS: BP 127/73
[2017-09-29] MEDS ORDERED: EMLA CREAM30 GM TP (12:33)
[2017-09-29 13:22] VITALS: BP 137/79
[2017-09-29 13:39] VITALS: BP 148/74
[2017-10-01] MEDS ORDERED: EMLA CREAM30 GM TP (08:57)
== END 2017-09-29 13:51 | disposition home or self-care (01) ==
LOC: SDC 09:45
DX: I87.8 Other specified disorders of veins (principal); K56.609 Unspecified intestinal obstruction, unspecified as to partial versus complete obstruction; Z93.2 Ileostomy status; K21.9 Gastro-esophageal reflux disease without esophagitis; E78.00 Pure hypercholesterolemia, unspecified; Q05.9 Spina bifida, unspecified; Z88.0 Allergy status to penicillin; F41.1 Generalized anxiety disorder; D64.9 Anemia, unspecified; M10.9 Gout, unspecified
CPT/HCPCS: 71010; C1751; C1769; J0690; Q0175

== ENCOUNTER 2017-10-07 13:13 | Inpatient (IN) | payer OTHER, BC ==
[~2017-10-07] VITALS: Ht 157.5 cm; Wt 78.6 kg
[~2017-10-07 13:13] MED LIST changes: +EMLA CREAM30 GM TP
[2017-10-07 14:01] LABS: MCH 28.5 PG (29.0-34.0); MCHC 31.3 G/DL (30.0-36.0); MCV 91.2 FL (86-99); MEAN PLAT.VOLUME 10.8 uM^3 (9.0-12.4); PLATELET COUNT 218 K/uL (156-360); RBC DIS.WIDTH-CV 14.2 % (11.8-14.6); RBC DIS.WIDTH-SD 47.5 % (39-53); WHITE BLOOD COUNT 6.6 K/uL (4.1-10.2)
[2017-10-07 14:11] LABS: CHLORIDE 108 mEq/L (99-109); POTASSIUM 4.5 mEq/L (3.7-5.4); SODIUM 138 mEq/L (136-147)
[2017-10-07 14:13] LABS: GLUCOSE 102 mg/dL (70-99)
[2017-10-07 14:15] LABS: ANION GAP 11 MEQ/L (2-14); TOTAL BILIRUBIN 0.4 mg/dL (0.0-1.0)
[2017-10-07 14:17] LABS: ALKALINE PHOSPHATASE 68 IU/L (3-129); GFR ESTIMATE (CALCULATED) > 59 mL/min/ (58.99-99999)
[2017-10-07 14:18] LABS: UREA NITROGEN (BUN) 14 mg/dL (9-23)
[2017-10-07 16:43] LABS: ADD MIUA? YES; BILIRUBIN NEGATIVE; BLOOD NEGATIVE; COLOR YELLOW ((YELLOW)); GLUCOSE (STRIP) NEGATIVE; KETONES NEGATIVE; LEUKOCYTES SMALL; NITRITE POSITIVE; PROTEIN (STRIP) NEGATIVE; SPECIFIC GRAVITY 1.012 (1.000-1.030); UROBILINOGEN 0.2 MG/DL (0.2-1.0)
[2017-10-07 16:53] LABS: BACTERIA 1+ /HPF; EPITHELIAL CELLS RARE /HPF; HYALINE CASTS 0-5 /LPF; MUCUS TRACE /LPF; UCUL ADDED? YES; WHITE BLOOD CELLS 15-20 /HPF (0-5)
[2017-10-08 02:39] VITALS: BP 154/77
[2017-10-08 05:12] LABS: CHLORIDE 112 mEq/L (99-109); POTASSIUM 3.8 mEq/L (3.7-5.4); SODIUM 143 mEq/L (136-147)
[2017-10-08 05:14] LABS: GLUCOSE 82 mg/dL (70-99)
[2017-10-08 05:15] LABS: ANION GAP 10 MEQ/L (2-14)
[2017-10-08 05:16] LABS: TOTAL BILIRUBIN 0.3 mg/dL (0.0-1.0)
[2017-10-08 05:17] LABS: ALKALINE PHOSPHATASE 63 IU/L (3-129)
[2017-10-08 05:18] LABS: GFR ESTIMATE (CALCULATED) > 59 mL/min/ (58.99-99999)
[2017-10-08 05:19] LABS: UREA NITROGEN (BUN) 13 mg/dL (9-23)
[2017-10-08 06:26] LABS: HEMATOCRIT 37.8 % (38.0-50.0); MCH 28.4 PG (29.0-34.0); MCHC 31.2 G/DL (30.0-36.0); MCV 90.9 FL (86-99); RBC DIS.WIDTH-CV 14.2 % (11.8-14.6); RBC DIS.WIDTH-SD 47.2 % (39-53); WHITE BLOOD COUNT 4.6 K/uL (4.1-10.2)
[2017-10-08 06:45] LABS: RED BLOOD COUNT 4.16 M/uL (4.00-5.50)
[2017-10-08 09:30] VITALS: BP 140/72
[2017-10-08 11:43] LABS: HEMATOLOGY COMMENT 1 SMEAR COMPATIBLE; MEAN PLAT.VOLUME 10.8 uM^3 (9.0-12.4); PLAT.SUFFICIENCY DECREASED
[2017-10-08 11:45] LABS: PLATELET COUNT 149 K/uL (156-360)
[2017-10-08 16:28] VITALS: BP 120/57
[2017-10-08 20:00] VITALS: BP 117/71
[2017-10-08 21:35] LABS: POINT-OF-CARE METER ID UU13113831
[2017-10-08 23:26] VITALS: BP 97/66
[2017-10-09 03:53] VITALS: BP 131/76
[2017-10-09 07:45] VITALS: BP 164/79
[2017-10-09 15:59] VITALS: BP 145/74
[2017-10-09 23:01] VITALS: BP 129/68
[2017-10-10 08:03] LABS: HEMATOCRIT 28.1 % (38.0-50.0); MCH 28.9 PG (29.0-34.0); MCHC 31.3 G/DL (30.0-36.0); MCV 92.4 FL (86-99); MEAN PLAT.VOLUME 10.5 uM^3 (9.0-12.4); RBC DIS.WIDTH-CV 14.4 % (11.8-14.6); RBC DIS.WIDTH-SD 48.5 % (39-53); WHITE BLOOD COUNT 5.1 K/uL (4.1-10.2)
[2017-10-10 08:04] LABS: PLATELET COUNT 217 K/uL (156-360); RED BLOOD COUNT 3.04 M/uL (4.00-5.50)
[2017-10-10 08:36] LABS: ALKALINE PHOSPHATASE 58 IU/L (3-129); ANION GAP 9 MEQ/L (2-14); CHLORIDE 110 MEQ/L (99-109); GFR ESTIMATE (CALCULATED) > 59 mL/min/ (58.99-99999); GLUCOSE 93 mg/dL (70-99); POTASSIUM 3.9 MEQ/L (3.7-5.4); SAMPLE HEMOLYSIS CHECK 0; SAMPLE ICTERIC CHECK 0; SAMPLE LIPEMIA CHECK 0; SODIUM 141 MEQ/L (136-147); TOTAL BILIRUBIN 0.4 MG/DL (0.0-1.0); UREA NITROGEN (BUN) 8 mg/dL (9-23)
[2017-10-10 08:57] VITALS: BP 165/77
== END 2017-10-10 11:24 | disposition home or self-care (01) | DRG 389 ==
LOC: EME 13:13 → EDOF 19:03 → 5WEST 19:03 → EDOF 19:03 → ENRESERV 19:16 → 5WEST 20:32 → CANRESERV 10-08 14:21 → ENRESERV 10-08 14:21 → ENPENDDIS 10-10 10:11 → 5WEST 10-10 11:24
PROVIDERS: Internal Medicine; Nurse Practitioner Adult Health; Physician Assistant
DX: K56.600 Partial intestinal obstruction, unspecified as to cause (principal); N39.0 Urinary tract infection, site not specified; J98.11 Atelectasis; K44.9 Diaphragmatic hernia without obstruction or gangrene; Z93.3 Colostomy status; E86.0 Dehydration; I12.9 Hypertensive chronic kidney disease with stage 1 through stage 4 chronic kidney disease, or unspecified chronic kidney disease; F31.9 Bipolar disorder, unspecified; I25.10 Atherosclerotic heart disease of native coronary artery without angina pectoris; E78.5 Hyperlipidemia, unspecified; E78.00 Pure hypercholesterolemia, unspecified; M10.9 Gout, unspecified; J44.9 Chronic obstructive pulmonary disease, unspecified; N18.9 Chronic kidney disease, unspecified; Q05.9 Spina bifida, unspecified; Z89.612 Acquired absence of left leg above knee; Z79.899 Other long term (current) drug therapy; Z87.19 Personal history of other diseases of the digestive system; Z87.442 Personal history of urinary calculi; Z80.42 Family history of malignant neoplasm of prostate; Z82.49 Family history of ischemic heart disease and other diseases of the circulatory system
CPT/HCPCS: 74000; 74022; 74176; 80053; 81003; 82948; 85027; 87086; 99281; 99285; G0378; J0696; J1644; J2270; J2405; J7030; S0028

== ENCOUNTER 2017-10-16 18:02 | Emergency (ER) | payer OTHER, BC ==
[~2017-10-16] VITALS: Ht 157.5 cm; Wt 73.8 kg
[2017-10-16 18:49] LABS: HEMATOCRIT 31.1 % (38.0-50.0); MCH 28.5 PG (29.0-34.0); MCHC 32.5 G/DL (30.0-36.0); MCV 87.9 FL (86-99); MEAN PLAT.VOLUME 10.5 uM^3 (9.0-12.4); PLATELET COUNT 291 K/uL (156-360); RBC DIS.WIDTH-CV 14.3 % (11.8-14.6); RBC DIS.WIDTH-SD 45.8 % (39-53); RED BLOOD COUNT 3.54 M/uL (4.00-5.50); WHITE BLOOD COUNT 7.4 K/uL (4.1-10.2)
[2017-10-16 18:56] LABS: CHLORIDE 103 mEq/L (99-109); POTASSIUM 4.2 mEq/L (3.7-5.4); SODIUM 139 mEq/L (136-147)
[2017-10-16 18:58] LABS: GLUCOSE 87 mg/dL (70-99)
[2017-10-16 18:59] LABS: ANION GAP 10 MEQ/L (2-14)
[2017-10-16 19:00] LABS: TOTAL BILIRUBIN 0.4 mg/dL (0.0-1.0)
[2017-10-16 19:01] LABS: ALKALINE PHOSPHATASE 73 IU/L (3-129)
[2017-10-16 19:02] LABS: GFR ESTIMATE (CALCULATED) > 59 mL/min/ (58.99-99999)
[2017-10-16 19:03] LABS: UREA NITROGEN (BUN) 14 mg/dL (9-23)
[2017-10-16] MEDS ORDERED: LORTAB 5-325 M1 EACH PO (21:12)
[2017-10-16 21:38] VITALS: BP 125/88
== END 2017-10-16 21:38 | disposition home or self-care (01) ==
LOC: EME 18:02
DX: R11.2 Nausea with vomiting, unspecified (principal); R10.9 Unspecified abdominal pain; M54.5 Low back pain; Z93.3 Colostomy status; Z90.49 Acquired absence of other specified parts of digestive tract; Z87.442 Personal history of urinary calculi; Z90.5 Acquired absence of kidney
CPT/HCPCS: 74000; 80053; 81003; 85027; 99281; 99284

== ENCOUNTER 2017-11-14 19:03 | Inpatient (IN) | payer OTHER, BC ==
[~2017-11-14] VITALS: Ht 157.5 cm; Wt 72.7 kg
[~2017-11-14 19:03] MED LIST changes: +LORTAB 5-325 M1 EACH PO
[2017-11-14 21:07] LABS: HEMATOCRIT 28.9 % (38.0-50.0); HEMOGLOBIN 9.2 G/DL (12.5-16.6); MCH 28.5 PG (29.0-34.0); MCHC 31.8 G/DL (30.0-36.0); MCV 89.5 FL (86-99); PLATELET COUNT 234 K/uL (156-360); RBC DIS.WIDTH-CV 15.2 % (11.8-14.6); RBC DIS.WIDTH-SD 49.7 % (39-53); RED BLOOD COUNT 3.23 M/uL (4.00-5.50); WHITE BLOOD COUNT 6.5 K/uL (4.1-10.2)
[2017-11-14 21:20] LABS: ALBUMIN 3.7 g/dL (3.2-4.8); CHLORIDE 107 mEq/L (99-109); SODIUM 138 mEq/L (136-147)
[2017-11-14 21:22] LABS: GLUCOSE 112 mg/dL (70-99); TOTAL PROTEIN 6.7 g/dL (6.4-8.3)
[2017-11-14 21:24] LABS: TOTAL BILIRUBIN 0.4 mg/dL (0.0-1.0)
[2017-11-14 21:26] LABS: ALKALINE PHOSPHATASE 68 IU/L (3-129); CREATININE 1.4 mg/dL (0.6-1.3); GFR ESTIMATE (CALCULATED) 53 mL/min/ (58.99-99999)
[2017-11-14 21:27] LABS: UREA NITROGEN (BUN) 25 mg/dL (9-23)
[2017-11-14 21:28] LABS: AST (GOT) 12 IU/L (2-34)
[2017-11-14 21:29] LABS: ALT (GPT) 7 IU/L (3-49)
[2017-11-14 21:31] LABS: APPEARANCE SL.HAZY ((CLEAR)); BILIRUBIN NEGATIVE; BLOOD SMALL; COLOR YELLOW ((YELLOW)); GLUCOSE (STRIP) NEGATIVE; KETONES NEGATIVE; LEUKOCYTES SMALL; NITRITE POSITIVE; PROTEIN (STRIP) NEGATIVE; SPECIFIC GRAVITY 1.016 (1.000-1.030); UROBILINOGEN 0.2 MG/DL (0.2-1.0)
[2017-11-14 21:41] LABS: BACTERIA RARE /HPF; EPITHELIAL CELLS NONE SEEN /HPF; MUCUS NONE SEEN /LPF; UCUL ADDED? YES; WHITE BLOOD CELLS 20-30 /HPF (0-5)
[2017-11-15] MEDS ORDERED: PANTOPRAZOLE SO40 MG PO (00:22)
[2017-11-15] MEDS ORDERED: MAG-OXIDE400 MG PO (00:23)
[2017-11-15] MEDS ORDERED: PAROXETINE HCL30 MG PO (00:23)
[2017-11-15] MEDS ORDERED: LOPERAMIDE2 MG PO (00:25)
[2017-11-15] MEDS ORDERED: PREDNISONE10 MG PO (00:36)
[2017-11-15 07:30] LABS: BASOPHIL (%) 0.2 % (0-1); EOSINOPHIL COUNT 0.1 K/uL (0-0.3); HEMOGLOBIN 9.1 G/DL (12.5-16.6); IMMATURE GRANULOCYTE (%) 0.4 % (0.0-0.7); LYMPHOCYTE (%) 11.2 % (15-42); LYMPHOCYTE COUNT 0.5 K/uL (1.0-2.8); MCH 28.5 PG (29.0-34.0); MCHC 31.4 G/DL (30.0-36.0); MCV 90.9 FL (86-99); MONOCYTE (%) 7.5 % (3-12); MONOCYTE COUNT 0.4 K/uL (0-0.8); NEUTROPHIL (%) 79.7 % (45-76); NEUTROPHIL COUNT 3.8 K/uL (1.8-6.4); PLATELET COUNT 196 K/uL (156-360); RBC DIS.WIDTH-CV 15.2 % (11.8-14.6); RBC DIS.WIDTH-SD 50.7 % (39-53); RED BLOOD COUNT 3.19 M/uL (4.00-5.50); WHITE BLOOD COUNT 4.8 K/uL (4.1-10.2)
[2017-11-15 08:02] LABS: ALBUMIN 3.3 G/DL (3.2-4.8); ALKALINE PHOSPHATASE 378 IU/L (3-129); ALT (GPT) 241 IU/L (3-49); AST (GOT) 478 IU/L (2-34); CHLORIDE 107 MEQ/L (99-109); CREATININE 1.4 MG/DL (0.6-1.3); GFR ESTIMATE (CALCULATED) 53 mL/min/ (58.99-99999); GLUCOSE 104 mg/dL (70-99); SODIUM 139 MEQ/L (136-147); TOTAL BILIRUBIN 0.7 MG/DL (0.0-1.0); TOTAL PROTEIN 6.3 G/DL (6.4-8.3); UREA NITROGEN (BUN) 23 mg/dL (9-23)
[2017-11-15 09:56] LABS: MAGNESIUM 1.7 mg/dl (1.3-2.7)
[2017-11-15 11:17] LABS: AMYLASE 49 IU/L (1-118); LIPASE 172 U/L (1.0-51.0)
[2017-11-16 00:08] VITALS: BP 119/64
[2017-11-16 06:39] LABS: BASOPHIL (%) 0.4 % (0-1); EOSINOPHIL (%) 1.1 % (0-5); EOSINOPHIL COUNT 0.1 K/uL (0-0.3); HEMATOCRIT 28.9 % (38.0-50.0); HEMOGLOBIN 8.5 G/DL (12.5-16.6); IMMATURE GRANULOCYTE (%) 0.4 % (0.0-0.7); LYMPHOCYTE (%) 14.5 % (15-42); LYMPHOCYTE COUNT 0.8 K/uL (1.0-2.8); MCH 27.5 PG (29.0-34.0); MCHC 29.4 G/DL (30.0-36.0); MCV 93.5 FL (86-99); MONOCYTE (%) 7.4 % (3-12); MONOCYTE COUNT 0.4 K/uL (0-0.8); NEUTROPHIL (%) 76.2 % (45-76); NEUTROPHIL COUNT 4.3 K/uL (1.8-6.4); PLATELET COUNT 208 K/uL (156-360); RBC DIS.WIDTH-CV 15.2 % (11.8-14.6); RBC DIS.WIDTH-SD 52.5 % (39-53); RED BLOOD COUNT 3.09 M/uL (4.00-5.50); WHITE BLOOD COUNT 5.6 K/uL (4.1-10.2)
[2017-11-16 07:07] LABS: ALBUMIN 3.1 G/DL (3.2-4.8); ALKALINE PHOSPHATASE 330 IU/L (3-129); ALT (GPT) 174 IU/L (3-49); CHLORIDE 112 MEQ/L (99-109); CREATININE 1.3 MG/DL (0.6-1.3); GFR ESTIMATE (CALCULATED) 58 mL/min/ (58.99-99999); POTASSIUM 4.4 MEQ/L (3.7-5.4); SODIUM 144 MEQ/L (136-147); TOTAL PROTEIN 5.9 G/DL (6.4-8.3); UREA NITROGEN (BUN) 23 mg/dL (9-23)
[2017-11-16 07:08] LABS: GLUCOSE 67 mg/dL (70-99); TOTAL BILIRUBIN 0.5 MG/DL (0.0-1.0)
[2017-11-16 07:09] LABS: AST (GOT) 117 IU/L (2-34)
[2017-11-16 07:31] VITALS: BP 121/56
[2017-11-16 15:40] VITALS: BP 103/62
[2017-11-17 00:06] VITALS: BP 121/68
[2017-11-17 07:04] LABS: BASOPHIL (%) 0.2 % (0-1); EOSINOPHIL (%) 0.4 % (0-5); HEMATOCRIT 28.1 % (38.0-50.0); HEMOGLOBIN 8.5 G/DL (12.5-16.6); IMMATURE GRANULOCYTE (%) 0.4 % (0.0-0.7); LYMPHOCYTE COUNT 0.7 K/uL (1.0-2.8); MCH 28.1 PG (29.0-34.0); MCHC 30.2 G/DL (30.0-36.0); MONOCYTE (%) 7.1 % (3-12); MONOCYTE COUNT 0.4 K/uL (0-0.8); NEUTROPHIL (%) 78.9 % (45-76); NEUTROPHIL COUNT 4.3 K/uL (1.8-6.4); PLATELET COUNT 219 K/uL (156-360); RBC DIS.WIDTH-CV 15.1 % (11.8-14.6); RBC DIS.WIDTH-SD 51.6 % (39-53); RED BLOOD COUNT 3.02 M/uL (4.00-5.50); WHITE BLOOD COUNT 5.5 K/uL (4.1-10.2)
[2017-11-17 07:28] VITALS: BP 187/86
[2017-11-17 07:45] LABS: ALBUMIN 3.1 G/DL (3.2-4.8); ALT (GPT) 106 IU/L (3-49); CHLORIDE 112 MEQ/L (99-109); CREATININE 1.2 MG/DL (0.6-1.3); DIRECT BILIRUBIN 0.1 mg/dL (0.0-0.3); GFR ESTIMATE (CALCULATED) > 59 mL/min/ (58.99-99999); PHOSPHORUS 3.1 mg/dL (2.5-4.9); POTASSIUM 4.4 MEQ/L (3.7-5.4); SODIUM 144 MEQ/L (136-147); TOTAL BILIRUBIN 0.5 MG/DL (0.0-1.0); TOTAL PROTEIN 5.8 G/DL (6.4-8.3); UREA NITROGEN (BUN) 18 mg/dL (9-23)
[2017-11-17 07:47] LABS: ALKALINE PHOSPHATASE 233 IU/L (3-129); AST (GOT) 40 IU/L (2-34); GLUCOSE 101 mg/dL (70-99)
[2017-11-17 10:56] LABS: MAGNESIUM 1.8 mg/dl (1.3-2.7)
[2017-11-17 15:10] VITALS: BP 146/75
[2017-11-18 00:04] VITALS: BP 140/80
[2017-11-18 05:58] LABS: BASOPHIL (%) 0.2 % (0-1); EOSINOPHIL (%) 0 % (0-5); HEMOGLOBIN 9.5 G/DL (12.5-16.6); IMMATURE GRANULOCYTE (%) 0.3 % (0.0-0.7); LYMPHOCYTE (%) 13.5 % (15-42); LYMPHOCYTE COUNT 0.8 K/uL (1.0-2.8); MCH 27.8 PG (29.0-34.0); MCHC 30.6 G/DL (30.0-36.0); MCV 90.6 FL (86-99); MONOCYTE (%) 6.8 % (3-12); MONOCYTE COUNT 0.4 K/uL (0-0.8); NEUTROPHIL (%) 79.2 % (45-76); NEUTROPHIL COUNT 4.9 K/uL (1.8-6.4); PLATELET COUNT 247 K/uL (156-360); RBC DIS.WIDTH-CV 14.9 % (11.8-14.6); RBC DIS.WIDTH-SD 49.7 % (39-53); RED BLOOD COUNT 3.42 M/uL (4.00-5.50); WHITE BLOOD COUNT 6.2 K/uL (4.1-10.2)
[2017-11-18 06:22] LABS: INTER. NORMALIZED RATIO 0.9
[2017-11-18 06:40] LABS: ALKALINE PHOSPHATASE 190 IU/L (3-129); ALKALINE PHOSPHATASE 193 IU/L (3-129); ALT (GPT) 61 IU/L (3-49); ALT (GPT) 63 IU/L (3-49); CHLORIDE 111 MEQ/L (99-109); CREATININE 1.2 MG/DL (0.6-1.3); DIRECT BILIRUBIN 0.1 mg/dL (0.0-0.3); GFR ESTIMATE (CALCULATED) > 59 mL/min/ (58.99-99999); POTASSIUM 4.5 MEQ/L (3.7-5.4); SODIUM 142 MEQ/L (136-147); TOTAL BILIRUBIN 0.4 MG/DL (0.0-1.0); TOTAL PROTEIN 5.7 G/DL (6.4-8.3); TOTAL PROTEIN 5.8 G/DL (6.4-8.3); UREA NITROGEN (BUN) 15 mg/dL (9-23)
[2017-11-18 06:44] LABS: AST (GOT) 16 IU/L (2-34); GLUCOSE 167 mg/dL (70-99); TOTAL BILIRUBIN 0.3 MG/DL (0.0-1.0)
[2017-11-18 08:15] VITALS: BP 171/80
[2017-11-18 16:40] VITALS: BP 120/63
[2017-11-19 00:20] VITALS: BP 165/73
[2017-11-19 05:05] LABS: BASOPHIL (%) 0.2 % (0-1); EOSINOPHIL (%) 0.4 % (0-5); HEMOGLOBIN 9.6 G/DL (12.5-16.6); IMMATURE GRANULOCYTE (%) 0.4 % (0.0-0.7); LYMPHOCYTE (%) 17.5 % (15-42); MCH 27.7 PG (29.0-34.0); MCV 89.3 FL (86-99); MONOCYTE (%) 5.6 % (3-12); MONOCYTE COUNT 0.3 K/uL (0-0.8); NEUTROPHIL (%) 75.9 % (45-76); NEUTROPHIL COUNT 4.2 K/uL (1.8-6.4); PLATELET COUNT 259 K/uL (156-360); RBC DIS.WIDTH-CV 14.6 % (11.8-14.6); RBC DIS.WIDTH-SD 48.1 % (39-53); RED BLOOD COUNT 3.47 M/uL (4.00-5.50); WHITE BLOOD COUNT 5.5 K/uL (4.1-10.2)
[2017-11-19 05:42] LABS: ALBUMIN 3.1 G/DL (3.2-4.8); ALKALINE PHOSPHATASE 159 IU/L (3-129); ALKALINE PHOSPHATASE 161 IU/L (3-129); ALT (GPT) 46 IU/L (3-49); AST (GOT) 12 IU/L (2-34); CHLORIDE 107 MEQ/L (99-109); CREATININE 1.1 MG/DL (0.6-1.3); DIRECT BILIRUBIN 0.1 mg/dL (0.0-0.3); GFR ESTIMATE (CALCULATED) > 59 mL/min/ (58.99-99999); GLUCOSE 145 mg/dL (70-99); POTASSIUM 4.1 MEQ/L (3.7-5.4); SODIUM 141 MEQ/L (136-147); TOTAL PROTEIN 5.6 G/DL (6.4-8.3); TOTAL PROTEIN 5.7 G/DL (6.4-8.3); UREA NITROGEN (BUN) 12 mg/dL (9-23)
[2017-11-19 05:43] LABS: TOTAL BILIRUBIN 0.4 MG/DL (0.0-1.0)
[2017-11-19 07:37] VITALS: BP 146/70
[2017-11-19] MEDS ORDERED: AMLODIPINE BESYL5 MG PO (11:05)
== END 2017-11-19 15:18 | disposition home or self-care (01) | DRG 389 ==
LOC: EXP 19:03 → EME 19:03 → 5EAST 11-15 00:05 → EDOF 11-15 00:05 → ENRESERV 11-15 00:06 → 5EAST 11-15 17:00
PROVIDERS: Hospitalist; Internal Medicine Gastroenterology; Nurse Practitioner Adult Health
DX: K56.51 Intestinal adhesions [bands], with partial obstruction (principal); N17.9 Acute kidney failure, unspecified; N39.0 Urinary tract infection, site not specified; B96.20 Unspecified Escherichia coli [E. coli] as the cause of diseases classified elsewhere; R79.89 Other specified abnormal findings of blood chemistry; K91.2 Postsurgical malabsorption, not elsewhere classified; E86.0 Dehydration; D64.9 Anemia, unspecified; I12.9 Hypertensive chronic kidney disease with stage 1 through stage 4 chronic kidney disease, or unspecified chronic kidney disease; N18.9 Chronic kidney disease, unspecified; K21.0 Gastro-esophageal reflux disease with esophagitis; K44.9 Diaphragmatic hernia without obstruction or gangrene; K22.10 Ulcer of esophagus without bleeding; J44.9 Chronic obstructive pulmonary disease, unspecified; K76.0 Fatty (change of) liver, not elsewhere classified; M10.9 Gout, unspecified; E78.5 Hyperlipidemia, unspecified; I25.10 Atherosclerotic heart disease of native coronary artery without angina pectoris; F41.9 Anxiety disorder, unspecified; F31.9 Bipolar disorder, unspecified; E78.00 Pure hypercholesterolemia, unspecified; Q05.9 Spina bifida, unspecified; Z87.19 Personal history of other diseases of the digestive system; Z86.19 Personal history of other infectious and parasitic diseases; Z87.442 Personal history of urinary calculi; Z90.49 Acquired absence of other specified parts of digestive tract; Z90.5 Acquired absence of kidney; Z93.3 Colostomy status; Z93.6 Other artificial openings of urinary tract status; Z89.612 Acquired absence of left leg above knee; Z96.651 Presence of right artificial knee joint
CPT/HCPCS: 74018; 74176; 80053; 80069; 80076; 81003; 82150; 83605; 83690; 83735; 85025; 85027; 85610; 87040; 87077; 87086; 87186; 96365; 99281; 99285; J0295; J2270; J2405; J3480; J7030; J7050; J7120; J7512

== ENCOUNTER 2017-12-01 03:56 | Inpatient (IN) | payer OTHER, BC ==
[~2017-12-01] VITALS: Ht 157.5 cm; Wt 67.5 kg
[~2017-12-01 03:56] MED LIST changes: +PAROXETINE HCL30 MG PO
[2017-12-01 04:51] LABS: HEMATOCRIT 32.2 % (38.0-50.0); HEMOGLOBIN 10.3 G/DL (12.5-16.6); MCH 28.3 PG (29.0-34.0); MCV 88.5 FL (86-99); PLATELET COUNT 291 K/uL (156-360); RBC DIS.WIDTH-CV 14.7 % (11.8-14.6); RBC DIS.WIDTH-SD 47.3 % (39-53); RED BLOOD COUNT 3.64 M/uL (4.00-5.50); WHITE BLOOD COUNT 13.2 K/uL (4.1-10.2)
[2017-12-01 05:04] LABS: ALBUMIN 3.8 g/dL (3.2-4.8)
[2017-12-01 05:05] LABS: CHLORIDE 105 mEq/L (99-109); POTASSIUM 3.4 mEq/L (3.7-5.4); SODIUM 138 mEq/L (136-147)
[2017-12-01 05:07] LABS: GLUCOSE 133 mg/dL (70-99); TOTAL PROTEIN 7.3 g/dL (6.4-8.3)
[2017-12-01 05:09] LABS: TOTAL BILIRUBIN 0.2 mg/dL (0.0-1.0)
[2017-12-01 05:10] LABS: ALKALINE PHOSPHATASE 103 IU/L (3-129)
[2017-12-01 05:11] LABS: CREATININE 1.4 mg/dL (0.6-1.3); GFR ESTIMATE (CALCULATED) 53 mL/min/ (58.99-99999)
[2017-12-01 05:12] LABS: AST (GOT) 13 IU/L (2-34); UREA NITROGEN (BUN) 23 mg/dL (9-23)
[2017-12-01 05:14] LABS: ALT (GPT) 9 IU/L (3-49); LIPASE 49 U/L (1.0-51.0)
[2017-12-01 05:56] LABS: APPEARANCE CLOUDY ((CLEAR)); BILIRUBIN NEGATIVE; BLOOD NEGATIVE; COLOR YELLOW ((YELLOW)); GLUCOSE (STRIP) NEGATIVE; KETONES NEGATIVE; LEUKOCYTES NEGATIVE; NITRITE NEGATIVE; PROTEIN (STRIP) 30; SPECIFIC GRAVITY 1.019 (1.000-1.030); UROBILINOGEN 0.2 MG/DL (0.2-1.0)
[2017-12-01 06:16] LABS: BACTERIA 1+ /HPF; CALCIUM OXALATE CRYSTALS 3+ /HPF; EPITHELIAL CELLS RARE /HPF; MUCUS TRACE /LPF; UCUL ADDED? YES; WHITE BLOOD CELLS 15-20 /HPF (0-5)
[2017-12-01 07:25] LABS: C DIFF TOXIN NEGATIVE (NEGATIVE)
[2017-12-01] MEDS ORDERED: NORVASC2.5 MG PO (09:13)
[2017-12-01] MEDS ORDERED: NORCO 5/3251 TABLET PO (09:21)
[2017-12-01] MEDS ORDERED: TYLENOL REGULA325 MG PO (09:23)
[2017-12-01 10:28] VITALS: BP 126/84
[2017-12-01 19:34] VITALS: BP 106/61
[2017-12-02] VITALS (7 sets, daily range): BP systolic 92–143; BP diastolic 54–82
[2017-12-02 06:49] LABS: HEMATOCRIT 27.8 % (38.0-50.0); HEMOGLOBIN 8.5 G/DL (12.5-16.6); MCH 27.7 PG (29.0-34.0); MCHC 30.6 G/DL (30.0-36.0); MCV 90.6 FL (86-99); RBC DIS.WIDTH-CV 15.3 % (11.8-14.6); RBC DIS.WIDTH-SD 50.2 % (39-53); RED BLOOD COUNT 3.07 M/uL (4.00-5.50)
[2017-12-02 07:11] LABS: CHLORIDE 112 MEQ/L (99-109); CREATININE 1.1 MG/DL (0.6-1.3); GFR ESTIMATE (CALCULATED) > 59 mL/min/ (58.99-99999); GLUCOSE 102 mg/dL (70-99); SODIUM 142 MEQ/L (136-147); UREA NITROGEN (BUN) 15 mg/dL (9-23)
[2017-12-02 07:14] LABS: POTASSIUM 4.6 MEQ/L (3.7-5.4)
[2017-12-02 07:27] LABS: PLAT.SUFFICIENCY ADEQUATE
[2017-12-02 07:49] LABS: PLATELET COUNT 193 K/uL (156-360)
[2017-12-03 06:35] LABS: HEMATOCRIT 30.3 % (38.0-50.0); HEMOGLOBIN 9.3 G/DL (12.5-16.6); MCH 27.4 PG (29.0-34.0); MCHC 30.7 G/DL (30.0-36.0); MCV 89.4 FL (86-99); PLATELET COUNT 212 K/uL (156-360); RBC DIS.WIDTH-CV 14.9 % (11.8-14.6); RBC DIS.WIDTH-SD 49.1 % (39-53); RED BLOOD COUNT 3.39 M/uL (4.00-5.50); WHITE BLOOD COUNT 5.7 K/uL (4.1-10.2)
[2017-12-03 06:53] LABS: CHLORIDE 111 MEQ/L (99-109); CREATININE 1.2 MG/DL (0.6-1.3); GFR ESTIMATE (CALCULATED) > 59 mL/min/ (58.99-99999); GLUCOSE 112 mg/dL (70-99); POTASSIUM 4.3 MEQ/L (3.7-5.4); SODIUM 141 MEQ/L (136-147); UREA NITROGEN (BUN) 14 mg/dL (9-23)
[2017-12-03 07:37] VITALS: BP 125/67
== END 2017-12-03 12:17 | disposition home or self-care (01) | DRG 389 ==
LOC: EME 03:56 → EDOF 08:22 → 5SOUTH 08:22 → ENRESERV 08:31 → EDOF 09:00 → ENRESERV 09:21 → 5SOUTH 10:03 → ENPENDDIS 12-03 → 5SOUTH 12-03 12:17
PROVIDERS: Emergency Medicine; Internal Medicine; Physician Assistant Medical
DX: K56.609 Unspecified intestinal obstruction, unspecified as to partial versus complete obstruction (principal); E87.2 Acidosis; E87.6 Hypokalemia; J44.9 Chronic obstructive pulmonary disease, unspecified; I12.9 Hypertensive chronic kidney disease with stage 1 through stage 4 chronic kidney disease, or unspecified chronic kidney disease; N18.9 Chronic kidney disease, unspecified; E78.5 Hyperlipidemia, unspecified; D64.9 Anemia, unspecified; K21.0 Gastro-esophageal reflux disease with esophagitis; K44.9 Diaphragmatic hernia without obstruction or gangrene; F31.9 Bipolar disorder, unspecified; F41.9 Anxiety disorder, unspecified; Z87.440 Personal history of urinary (tract) infections; Z93.2 Ileostomy status; Z90.49 Acquired absence of other specified parts of digestive tract; Z93.6 Other artificial openings of urinary tract status; Z87.442 Personal history of urinary calculi; Z89.612 Acquired absence of left leg above knee; Z96.651 Presence of right artificial knee joint
CPT/HCPCS: 74022; 74176; 80048; 80053; 81003; 82948; 83605; 83690; 85027; 87040; 87077; 87086; 87186; 87493; 99281; 99285; J0744; J1644; J2270; J2405; J7030; S0028

== ENCOUNTER 2017-12-07 23:09 | Inpatient (IN) | payer OTHER, BC ==
[~2017-12-07] VITALS: Ht 157.5 cm; Wt 67.5 kg
[~2017-12-07 23:09] MED LIST changes: +NORVASC2.5 MG PO
[2017-12-07 23:51] LABS: BASOPHIL (%) 0.4 % (0-1); BASOPHIL COUNT 0.1 K/uL (0-0.1); EOSINOPHIL (%) 0.9 % (0-5); EOSINOPHIL COUNT 0.2 K/uL (0-0.3); HEMATOCRIT 34.6 % (38.0-50.0); IMMATURE GRANULOCYTE (%) 0.5 % (0.0-0.7); LYMPHOCYTE (%) 13.1 % (15-42); LYMPHOCYTE COUNT 2.2 K/uL (1.0-2.8); MCH 27.9 PG (29.0-34.0); MCHC 32.9 G/DL (30.0-36.0); MONOCYTE (%) 3.6 % (3-12); MONOCYTE COUNT 0.6 K/uL (0-0.8); NEUTROPHIL (%) 81.5 % (45-76); NEUTROPHIL COUNT 13.5 K/uL (1.8-6.4); PLATELET COUNT 247 K/uL (156-360); RBC DIS.WIDTH-CV 15.2 % (11.8-14.6); RBC DIS.WIDTH-SD 46.5 % (39-53); WHITE BLOOD COUNT 16.5 K/uL (4.1-10.2)
[2017-12-07 23:53] LABS: HEMOGLOBIN 11.4 G/DL (12.5-16.6); MCV 84.6 FL (86-99); RED BLOOD COUNT 4.09 M/uL (4.00-5.50)
[2017-12-07 23:56] LABS: ALBUMIN 4.1 g/dL (3.2-4.8); CHLORIDE 109 mEq/L (99-109); POTASSIUM 3.5 mEq/L (3.7-5.4); SODIUM 140 mEq/L (136-147)
[2017-12-07 23:58] LABS: GLUCOSE 115 mg/dL (70-99); TOTAL PROTEIN 7.8 g/dL (6.4-8.3)
[2017-12-08] LABS: TOTAL BILIRUBIN 0.2 mg/dL (0.0-1.0)
[2017-12-08 00:02] LABS: ALKALINE PHOSPHATASE 99 IU/L (3-129); CREATININE 1.5 mg/dL (0.6-1.3); GFR ESTIMATE (CALCULATED) 49 mL/min/ (58.99-99999)
[2017-12-08 00:03] LABS: AST (GOT) 15 IU/L (2-34)
[2017-12-08 00:04] LABS: DIRECT BILIRUBIN 0.1 mg/dL (0.0-0.3)
[2017-12-08 00:05] LABS: ALT (GPT) 11 IU/L (3-49); LIPASE 42 U/L (1.0-51.0)
[2017-12-08 00:06] LABS: UREA NITROGEN (BUN) 27 mg/dL (9-23)
[2017-12-08 02:00] LABS: APPEARANCE CLOUDY ((CLEAR)); BILIRUBIN NEGATIVE; BLOOD SMALL; COLOR YELLOW ((YELLOW)); GLUCOSE (STRIP) NEGATIVE; KETONES NEGATIVE; LEUKOCYTES MODERATE; NITRITE NEGATIVE; PROTEIN (STRIP) 30; UROBILINOGEN 0.2 MG/DL (0.2-1.0)
[2017-12-08 02:16] LABS: RED BLOOD CELLS 0-5 /HPF (0-5); WHITE BLOOD CELLS 30-40 /HPF (0-5)
[2017-12-08 02:17] LABS: BACTERIA 3+ /HPF; EPITHELIAL CELLS NONE SEEN /HPF; MUCUS NONE SEEN /LPF; UCUL ADDED? YES
[2017-12-08 04:17] VITALS: BP 132/61
[2017-12-08 06:33] LABS: BASOPHIL (%) 0.4 % (0-1); EOSINOPHIL (%) 0.1 % (0-5); HEMATOCRIT 30.8 % (38.0-50.0); HEMOGLOBIN 9.5 G/DL (12.5-16.6); IMMATURE GRANULOCYTE (%) 0.3 % (0.0-0.7); LYMPHOCYTE (%) 11.9 % (15-42); LYMPHOCYTE COUNT 1.1 K/uL (1.0-2.8); MCH 26.8 PG (29.0-34.0); MCHC 30.8 G/DL (30.0-36.0); MONOCYTE COUNT 0.4 K/uL (0-0.8); NEUTROPHIL (%) 83.3 % (45-76); NEUTROPHIL COUNT 7.5 K/uL (1.8-6.4); PLATELET COUNT 201 K/uL (156-360); RBC DIS.WIDTH-CV 15.3 % (11.8-14.6); RBC DIS.WIDTH-SD 48.8 % (39-53); RED BLOOD COUNT 3.54 M/uL (4.00-5.50)
[2017-12-08 06:54] LABS: CHLORIDE 110 MEQ/L (99-109); CREATININE 1.3 MG/DL (0.6-1.3); GFR ESTIMATE (CALCULATED) 58 mL/min/ (58.99-99999); GLUCOSE 108 mg/dL (70-99); SODIUM 142 MEQ/L (136-147); UREA NITROGEN (BUN) 24 mg/dL (9-23)
[2017-12-08 06:56] LABS: POTASSIUM 4.4 MEQ/L (3.7-5.4)
[2017-12-08 07:25] VITALS: BP 161/78
[2017-12-08 11:22] VITALS: BP 155/76
[2017-12-08 16:34] VITALS: BP 114/58
[2017-12-08 19:24] VITALS: BP 115/58
[2017-12-08 23:34] VITALS: BP 121/55
[2017-12-09 03:34] VITALS: BP 118/52
[2017-12-09 06:52] LABS: HEMATOCRIT 28.9 % (38.0-50.0); HEMOGLOBIN 8.6 G/DL (12.5-16.6); MCHC 29.8 G/DL (30.0-36.0); MCV 90.6 FL (86-99); PLATELET COUNT 166 K/uL (156-360); RBC DIS.WIDTH-CV 15.7 % (11.8-14.6); RBC DIS.WIDTH-SD 51.5 % (39-53); RED BLOOD COUNT 3.19 M/uL (4.00-5.50); WHITE BLOOD COUNT 4.1 K/uL (4.1-10.2)
[2017-12-09 07:11] LABS: CHLORIDE 114 MEQ/L (99-109); CREATININE 1.1 MG/DL (0.6-1.3); GFR ESTIMATE (CALCULATED) > 59 mL/min/ (58.99-99999); GLUCOSE 93 mg/dL (70-99); POTASSIUM 4.2 MEQ/L (3.7-5.4); SODIUM 142 MEQ/L (136-147); UREA NITROGEN (BUN) 16 mg/dL (9-23)
[2017-12-09 08:02] VITALS: BP 124/64
[2017-12-09 15:38] VITALS: BP 109/62
[2017-12-09 20:00] VITALS: BP 128/61
[2017-12-09 23:19] VITALS: BP 121/67
[2017-12-10 04:01] VITALS: BP 120/66
[2017-12-10 06:29] LABS: HEMATOCRIT 28.4 % (38.0-50.0); HEMOGLOBIN 8.8 G/DL (12.5-16.6); MCH 27.5 PG (29.0-34.0); MCV 88.8 FL (86-99); PLATELET COUNT 172 K/uL (156-360); RBC DIS.WIDTH-CV 15.1 % (11.8-14.6); RBC DIS.WIDTH-SD 49.3 % (39-53)
[2017-12-10 06:52] LABS: CHLORIDE 112 MEQ/L (99-109); CREATININE 1.2 MG/DL (0.6-1.3); GFR ESTIMATE (CALCULATED) > 59 mL/min/ (58.99-99999); GLUCOSE 94 mg/dL (70-99); POTASSIUM 3.6 MEQ/L (3.7-5.4); SODIUM 140 MEQ/L (136-147); UREA NITROGEN (BUN) 11 mg/dL (9-23)
[2017-12-10 07:38] VITALS: BP 181/80
[2017-12-10 11:14] VITALS: BP 153/76
[2017-12-10 15:20] VITALS: BP 139/72
[2017-12-10 19:20] VITALS: BP 138/77
[2017-12-10 23:21] VITALS: BP 147/67
[2017-12-11 03:10] VITALS: BP 140/77
[2017-12-11 07:31] LABS: CHLORIDE 108 MEQ/L (99-109); CREATININE 1.3 MG/DL (0.6-1.3); GFR ESTIMATE (CALCULATED) 58 mL/min/ (58.99-99999); GLUCOSE 92 mg/dL (70-99); POTASSIUM 3.8 MEQ/L (3.7-5.4); SODIUM 137 MEQ/L (136-147); UREA NITROGEN (BUN) 10 mg/dL (9-23)
[2017-12-11 08:00] VITALS: BP 138/72
[2017-12-11 12:00] VITALS: BP 151/68
[2017-12-11 16:00] VITALS: BP 117/57
[2017-12-11 19:35] VITALS: BP 121/62
[2017-12-11 23:28] VITALS: BP 140/70
[2017-12-12 03:38] VITALS: BP 135/68
[2017-12-12 08:00] VITALS: BP 113/59
[2017-12-12 12:08] VITALS: BP 109/68
[2017-12-12] MEDS ORDERED: FERROUS SULFAT325 MG PO (15:04)
== END 2017-12-12 15:50 | disposition home or self-care (01) | DRG 872 ==
LOC: EME → EDBD 23:09 → EME 23:09 → EDOF 12-08 02:35 → 2EASTP 12-08 02:35 → ENRESERV 12-08 02:37 → 2EASTP 12-08 03:59
PROVIDERS: Emergency Medicine; Hospitalist; Physician Assistant
DX: A41.9 Sepsis, unspecified organism (principal); N39.0 Urinary tract infection, site not specified; K56.609 Unspecified intestinal obstruction, unspecified as to partial versus complete obstruction; N17.9 Acute kidney failure, unspecified; E87.2 Acidosis; I10 Essential (primary) hypertension; E78.5 Hyperlipidemia, unspecified; M10.9 Gout, unspecified; Z16.24 Resistance to multiple antibiotics; E87.6 Hypokalemia; E86.0 Dehydration; D50.9 Iron deficiency anemia, unspecified; K21.9 Gastro-esophageal reflux disease without esophagitis; K44.9 Diaphragmatic hernia without obstruction or gangrene; B96.89 Other specified bacterial agents as the cause of diseases classified elsewhere; I25.10 Atherosclerotic heart disease of native coronary artery without angina pectoris; Q05.9 Spina bifida, unspecified; Z93.3 Colostomy status; Z96.653 Presence of artificial knee joint, bilateral; Z89.612 Acquired absence of left leg above knee; Z87.442 Personal history of urinary calculi; Z82.49 Family history of ischemic heart disease and other diseases of the circulatory system; Z80.42 Family history of malignant neoplasm of prostate
CPT/HCPCS: 74177; 74241; 80048; 80076; 81003; 82948; 83605; 83690; 85025; 85027; 87040; 87077; 87086; 87186; 87801; 99281; 99285; J0744; J1644; J2270; J2405; J7030; J7042; S0028

== ENCOUNTER 2017-12-21 00:27 | Emergency (ER) | payer OTHER, BC | END 2017-12-21 00:30 | disposition left against medical advice (07) | LOC: EME 00:27 | DX: M54.9 Dorsalgia, unspecified (principal); Z53.21 Procedure and treatment not carried out due to patient leaving prior to being seen by health care provider ==

== ENCOUNTER 2017-12-30 01:12 | Inpatient (IN) | payer OTHER, BC ==
[~2017-12-30] VITALS: Ht 157.5 cm; Wt 69.7 kg
[2017-12-30 02:08] LABS: HEMATOCRIT 29.7 % (38.0-50.0); HEMOGLOBIN 9.5 G/DL (12.5-16.6); MCH 27.8 PG (29.0-34.0); MCV 86.8 FL (86-99); PLATELET COUNT 202 K/uL (156-360); RBC DIS.WIDTH-CV 15.2 % (11.8-14.6); RBC DIS.WIDTH-SD 48.6 % (39-53); RED BLOOD COUNT 3.42 M/uL (4.00-5.50)
[2017-12-30 02:22] LABS: ALBUMIN 3.6 g/dL (3.2-4.8); CHLORIDE 107 mEq/L (99-109); SODIUM 141 mEq/L (136-147)
[2017-12-30 02:24] LABS: GLUCOSE 98 mg/dL (70-99); TOTAL PROTEIN 6.6 g/dL (6.4-8.3)
[2017-12-30 02:26] LABS: TOTAL BILIRUBIN 0.2 mg/dL (0.0-1.0)
[2017-12-30 02:28] LABS: ALKALINE PHOSPHATASE 81 IU/L (3-129); CREATININE 1.4 mg/dL (0.6-1.3); GFR ESTIMATE (CALCULATED) 53 mL/min/ (58.99-99999)
[2017-12-30 02:29] LABS: UREA NITROGEN (BUN) 17 mg/dL (9-23)
[2017-12-30 02:30] LABS: AST (GOT) 14 IU/L (2-34)
[2017-12-30 02:31] LABS: ALT (GPT) 8 IU/L (3-49)
[2017-12-30 10:34] LABS: APPEARANCE SL.HAZY ((CLEAR)); BILIRUBIN NEGATIVE; BLOOD SMALL; COLOR YELLOW ((YELLOW)); GLUCOSE (STRIP) NEGATIVE; KETONES NEGATIVE; LEUKOCYTES TRACE; NITRITE NEGATIVE; PROTEIN (STRIP) 30; SPECIFIC GRAVITY 1.015 (1.000-1.030); UROBILINOGEN 0.2 MG/DL (0.2-1.0)
[2017-12-30 10:40] VITALS: BP 148/73
[2017-12-30 10:56] LABS: EPITHELIAL CELLS NONE SEEN /HPF; MUCUS NONE SEEN /LPF; RED BLOOD CELLS RARE /HPF (0-5); WHITE BLOOD CELLS RARE /HPF (0-5)
[2017-12-30 10:57] LABS: BACTERIA 1+ /HPF; UCUL ADDED? NO
[2017-12-30 10:58] LABS: AMORPHOUS URATES CRYSTALS 2+
[2017-12-30] MEDS ORDERED: FEOSOL300 MG/5 M PO (11:55)
[2017-12-30 14:26] LABS: HEMATOCRIT 29.7 % (38.0-50.0); HEMOGLOBIN 9.3 G/DL (12.5-16.6); MCV 89.2 FL (86-99)
[2017-12-30 15:55] VITALS: BP 116/66
[2017-12-30 19:55] VITALS: BP 130/67
[2017-12-30 23:05] VITALS: BP 134/74
[2017-12-31 03:55] VITALS: BP 120/60
[2017-12-31 06:06] LABS: HEMATOCRIT 28.1 % (38.0-50.0); HEMOGLOBIN 8.4 G/DL (12.5-16.6); MCH 26.9 PG (29.0-34.0); MCHC 29.9 G/DL (30.0-36.0); MCV 90.1 FL (86-99); PLATELET COUNT 175 K/uL (156-360); RBC DIS.WIDTH-CV 15.4 % (11.8-14.6); RBC DIS.WIDTH-SD 50.7 % (39-53); RED BLOOD COUNT 3.12 M/uL (4.00-5.50); WHITE BLOOD COUNT 4.6 K/uL (4.1-10.2)
[2017-12-31 06:24] LABS: CHLORIDE 108 MEQ/L (99-109); CREATININE 1.1 MG/DL (0.6-1.3); GFR ESTIMATE (CALCULATED) > 59 mL/min/ (58.99-99999); GLUCOSE 83 mg/dL (70-99); POTASSIUM 4.1 MEQ/L (3.7-5.4); SODIUM 139 MEQ/L (136-147); UREA NITROGEN (BUN) 15 mg/dL (9-23)
[2017-12-31 07:28] VITALS: BP 139/67
[2017-12-31 11:39] VITALS: BP 124/58
[2017-12-31 14:58] VITALS: BP 131/66
[2017-12-31 23:58] VITALS: BP 128/60
[2018-01-01 08:05] VITALS: BP 155/67
[2018-01-01 09:10] LABS: HEMATOCRIT 26.6 % (38.0-50.0); HEMOGLOBIN 8.1 G/DL (12.5-16.6); MCH 26.7 PG (29.0-34.0); MCHC 30.5 G/DL (30.0-36.0); MCV 87.8 FL (86-99); PLATELET COUNT 172 K/uL (156-360); RBC DIS.WIDTH-CV 14.9 % (11.8-14.6); RED BLOOD COUNT 3.03 M/uL (4.00-5.50); WHITE BLOOD COUNT 4.4 K/uL (4.1-10.2)
[2018-01-01 12:32] LABS: IMM.RETIC FRACTION 12.1 % (3-19); RETIC HGB EQUIVALENT 30.7 (28-36)
[2018-01-01 12:34] LABS: RETICULOCYTE COUNT 0.9 % (0.5-1.8)
[2018-01-01 12:57] LABS: IRON 43 MCG/DL (35-150); TRANSFERRIN (TIBC) 222.3 mg/dL (215-380); TRANSFERRIN SATUR. 19 % (20-55)
[2018-01-01 13:14] LABS: FERRITIN 95 NG/ML (22-322)
[2018-01-01 13:24] LABS: FOLIC ACID (FOLATE) > 22.0 NG/ML (5.0-22.0)
[2018-01-01 15:10] VITALS: BP 137/67
[2018-01-01 23:21] VITALS: BP 152/70
[2018-01-02 06:27] LABS: HEMOGLOBIN 8.6 G/DL (12.5-16.6); MCH 26.8 PG (29.0-34.0); MCHC 30.7 G/DL (30.0-36.0); MCV 87.2 FL (86-99); PLATELET COUNT 178 K/uL (156-360); RBC DIS.WIDTH-CV 14.8 % (11.8-14.6); RBC DIS.WIDTH-SD 47.9 % (39-53); RED BLOOD COUNT 3.21 M/uL (4.00-5.50); WHITE BLOOD COUNT 3.5 K/uL (4.1-10.2)
[2018-01-02 06:58] LABS: CHLORIDE 107 MEQ/L (99-109); CREATININE 1.3 MG/DL (0.6-1.3); GFR ESTIMATE (CALCULATED) 58 mL/min/ (58.99-99999); GLUCOSE 101 mg/dL (70-99); MAGNESIUM 1.6 mg/dl (1.3-2.7); POTASSIUM 3.7 MEQ/L (3.7-5.4); SODIUM 143 MEQ/L (136-147); UREA NITROGEN (BUN) 11 mg/dL (9-23)
[2018-01-02 08:10] VITALS: BP 113/65
[2018-01-02] MEDS ORDERED: FEOSOL300 MG/5 M PO (10:57)
== END 2018-01-02 11:53 | disposition home or self-care (01) | DRG 390 ==
LOC: EME 01:12 → EDOF 08:00 → 2EAST 08:00 → ENRESERV 08:01 → 2EAST 10:36
PROVIDERS: Internal Medicine
DX: K56.609 Unspecified intestinal obstruction, unspecified as to partial versus complete obstruction (principal); K56.7 Ileus, unspecified; I12.9 Hypertensive chronic kidney disease with stage 1 through stage 4 chronic kidney disease, or unspecified chronic kidney disease; N18.3 Chronic kidney disease, stage 3 (moderate); D63.8 Anemia in other chronic diseases classified elsewhere; E78.5 Hyperlipidemia, unspecified; I25.10 Atherosclerotic heart disease of native coronary artery without angina pectoris; K21.9 Gastro-esophageal reflux disease without esophagitis; Z93.3 Colostomy status; Q05.9 Spina bifida, unspecified; Z89.612 Acquired absence of left leg above knee; Z90.5 Acquired absence of kidney; Z96.651 Presence of right artificial knee joint; M10.9 Gout, unspecified; Z93.6 Other artificial openings of urinary tract status
CPT/HCPCS: 74018; 74022; 80048; 80053; 81003; 82607; 82728; 82746; 83540; 83605; 83735; 84100; 84466; 85014; 85018; 85027; 85046; 96361; 96365; 99281; 99284; C9113; J1644; J2270; J2405; J3480; J7030; J7042

== ENCOUNTER 2018-01-19 18:13 | Emergency (ER) | payer OTHER, BC ==
[~2018-01-19] VITALS: Ht 157.5 cm; Wt 68.2 kg
[~2018-01-19 18:13] MED LIST changes: +FEOSOL300 MG/5 M PO
[2018-01-19 19:28] LABS: HEMATOCRIT 32.2 % (38.0-50.0); HEMOGLOBIN 10.4 G/DL (12.5-16.6); MCH 28.3 PG (29.0-34.0); MCHC 32.3 G/DL (30.0-36.0); MCV 87.5 FL (86-99); RBC DIS.WIDTH-CV 15.4 % (11.8-14.6); RED BLOOD COUNT 3.68 M/uL (4.00-5.50); WHITE BLOOD COUNT 6.9 K/uL (4.1-10.2)
[2018-01-19 19:31] LABS: PLATELET COUNT 262 K/uL (156-360)
[2018-01-19 19:43] LABS: ALBUMIN 4.2 g/dL (3.2-4.8); CHLORIDE 104 mEq/L (99-109); POTASSIUM 4.5 mEq/L (3.7-5.4); SODIUM 141 mEq/L (136-147)
[2018-01-19 19:46] LABS: GLUCOSE 102 mg/dL (70-99); TOTAL PROTEIN 7.8 g/dL (6.4-8.3)
[2018-01-19 19:47] LABS: TOTAL BILIRUBIN 0.4 mg/dL (0.0-1.0)
[2018-01-19 19:49] LABS: ALKALINE PHOSPHATASE 72 IU/L (3-129); CREATININE 1.7 mg/dL (0.6-1.3); GFR ESTIMATE (CALCULATED) 43 mL/min/ (58.99-99999)
[2018-01-19 19:50] LABS: UREA NITROGEN (BUN) 31 mg/dL (9-23)
[2018-01-19 19:51] LABS: AST (GOT) 14 IU/L (2-34)
[2018-01-19 19:52] LABS: ALT (GPT) 11 IU/L (3-49)
[2018-01-19 20:20] LABS: APPEARANCE TURBID ((CLEAR)); BILIRUBIN NEGATIVE; BLOOD SMALL; COLOR AMBER ((YELLOW)); GLUCOSE (STRIP) NEGATIVE; KETONES NEGATIVE; LEUKOCYTES LARGE; NITRITE NEGATIVE; PROTEIN (STRIP) 100; SPECIFIC GRAVITY 1.017 (1.000-1.030); UROBILINOGEN 0.2 MG/DL (0.2-1.0)
[2018-01-19 20:34] VITALS: BP 124/71
[2018-01-19 20:38] LABS: RED BLOOD CELLS 0-5 /HPF (0-5)
[2018-01-19 20:39] LABS: EPITHELIAL CELLS NONE SEEN /HPF
[2018-01-19 20:40] LABS: AMORPHOUS URATES CRYSTALS 2+; BACTERIA 2+ /HPF; CALCIUM OXALATE CRYSTALS 1+ /HPF; MUCUS RARE /LPF; UCUL ADDED? YES
== END 2018-01-19 21:43 | disposition home or self-care (01) ==
LOC: EME 18:13
DX: K56.7 Ileus, unspecified (principal); T40.605A Adverse effect of unspecified narcotics, initial encounter; K21.9 Gastro-esophageal reflux disease without esophagitis; I10 Essential (primary) hypertension; F41.9 Anxiety disorder, unspecified; E78.5 Hyperlipidemia, unspecified; Z89.612 Acquired absence of left leg above knee; Z90.49 Acquired absence of other specified parts of digestive tract; Z90.5 Acquired absence of kidney; Z96.653 Presence of artificial knee joint, bilateral; Z93.6 Other artificial openings of urinary tract status; Z93.3 Colostomy status; Z88.2 Allergy status to sulfonamides; Z88.0 Allergy status to penicillin
CPT/HCPCS: 80053; 81003; 85027; 87077; 87086; 87186; 99281; 99284

== ENCOUNTER 2018-01-28 17:21 | Inpatient (IN) | payer OTHER, BC ==
[~2018-01-28] VITALS: Ht 157.5 cm; Wt 73.0 kg
[2018-01-28 20:42] LABS: BASOPHIL (%) 0.4 % (0-1); EOSINOPHIL (%) 0.6 % (0-5); EOSINOPHIL COUNT 0.1 K/uL (0-0.3); HEMATOCRIT 31.4 % (38.0-50.0); HEMOGLOBIN 10.4 G/DL (12.5-16.6); IMMATURE GRANULOCYTE (%) 0.4 % (0.0-0.7); LYMPHOCYTE (%) 14.3 % (15-42); LYMPHOCYTE COUNT 1.2 K/uL (1.0-2.8); MCH 28.2 PG (29.0-34.0); MCHC 33.1 G/DL (30.0-36.0); MCV 85.1 FL (86-99); MONOCYTE (%) 7.1 % (3-12); MONOCYTE COUNT 0.6 K/uL (0-0.8); NEUTROPHIL (%) 77.2 % (45-76); NEUTROPHIL COUNT 6.3 K/uL (1.8-6.4); PLATELET COUNT 194 K/uL (156-360); RBC DIS.WIDTH-CV 15.2 % (11.8-14.6); RBC DIS.WIDTH-SD 47.3 % (39-53); RED BLOOD COUNT 3.69 M/uL (4.00-5.50); WHITE BLOOD COUNT 8.1 K/uL (4.1-10.2)
[2018-01-28 20:50] LABS: ALBUMIN 4.1 g/dL (3.2-4.8); CHLORIDE 105 mEq/L (99-109); SODIUM 140 mEq/L (136-147)
[2018-01-28 20:53] LABS: TOTAL PROTEIN 7.5 g/dL (6.4-8.3)
[2018-01-28 20:55] LABS: TOTAL BILIRUBIN 0.6 mg/dL (0.0-1.0)
[2018-01-28 20:56] LABS: ALKALINE PHOSPHATASE 72 IU/L (3-129); CREATININE 1.4 mg/dL (0.6-1.3); GFR ESTIMATE (CALCULATED) 53 mL/min/ (58.99-99999); GLUCOSE 90 mg/dL (70-99)
[2018-01-28 20:57] LABS: UREA NITROGEN (BUN) 23 mg/dL (9-23)
[2018-01-28 20:58] LABS: AST (GOT) 16 IU/L (2-34)
[2018-01-28 20:59] LABS: ALT (GPT) 13 IU/L (3-49)
[2018-01-28 21:00] LABS: LIPASE 91 U/L (1.0-51.0)
[2018-01-28 21:20] LABS: APPEARANCE CLOUDY ((CLEAR)); BILIRUBIN NEGATIVE; BLOOD SMALL; COLOR YELLOW ((YELLOW)); GLUCOSE (STRIP) NEGATIVE; KETONES NEGATIVE; LEUKOCYTES LARGE; NITRITE NEGATIVE; PROTEIN (STRIP) 30; SPECIFIC GRAVITY 1.011 (1.000-1.030); UROBILINOGEN 0.2 MG/DL (0.2-1.0)
[2018-01-28 21:46] LABS: AMORPHOUS URATES CRYSTALS 2+; BACTERIA 1+ /HPF; EPITHELIAL CELLS NONE SEEN /HPF; MUCUS NONE SEEN /LPF; UCUL ADDED? YES; WHITE BLOOD CELLS 30-40 /HPF (0-5)
[2018-01-28] MEDS ORDERED: PREDNISONE10 MG PO (23:17)
[2018-01-28] MEDS ORDERED: SODIUM CHLOR1L 0.9 IV (23:20)
[2018-01-29 02:17] VITALS: BP 125/77
[2018-01-29 04:22] VITALS: BP 118/66
[2018-01-29 06:36] LABS: BASOPHIL (%) 0.3 % (0-1); EOSINOPHIL (%) 0.3 % (0-5); HEMATOCRIT 31.2 % (38.0-50.0); HEMOGLOBIN 9.7 G/DL (12.5-16.6); IMMATURE GRANULOCYTE (%) 0.5 % (0.0-0.7); LYMPHOCYTE (%) 15.3 % (15-42); LYMPHOCYTE COUNT 0.6 K/uL (1.0-2.8); MCH 27.5 PG (29.0-34.0); MCHC 31.1 G/DL (30.0-36.0); MCV 88.4 FL (86-99); MONOCYTE (%) 7.4 % (3-12); MONOCYTE COUNT 0.3 K/uL (0-0.8); NEUTROPHIL (%) 76.2 % (45-76); PLATELET COUNT 154 K/uL (156-360); RBC DIS.WIDTH-CV 15.6 % (11.8-14.6); RBC DIS.WIDTH-SD 50.5 % (39-53); RED BLOOD COUNT 3.53 M/uL (4.00-5.50); WHITE BLOOD COUNT 3.9 K/uL (4.1-10.2)
[2018-01-29 07:05] LABS: CREATININE 1.3 MG/DL (0.6-1.3); GFR ESTIMATE (CALCULATED) 58 mL/min/ (58.99-99999); GLUCOSE 102 mg/dL (70-99); SODIUM 140 MEQ/L (136-147); UREA NITROGEN (BUN) 20 mg/dL (9-23)
[2018-01-29 07:06] LABS: CHLORIDE 110 MEQ/L (99-109)
[2018-01-29 08:06] VITALS: BP 130/71
[2018-01-29 11:53] VITALS: BP 131/60
[2018-01-29 16:10] VITALS: BP 142/71
[2018-01-29 20:03] VITALS: BP 116/70
[2018-01-30 00:31] VITALS: BP 128/64
[2018-01-30 08:41] VITALS: BP 120/58
[2018-01-30 15:46] VITALS: BP 122/64
[2018-01-30 19:15] VITALS: BP 110/62
[2018-01-31] VITALS: BP 112/60
[2018-01-31 04:00] VITALS: BP 124/64
[2018-01-31 06:54] LABS: CHLORIDE 114 MEQ/L (99-109); CREATININE 1.2 MG/DL (0.6-1.3); GFR ESTIMATE (CALCULATED) > 59 mL/min/ (58.99-99999); GLUCOSE 99 mg/dL (70-99); POTASSIUM 4.2 MEQ/L (3.7-5.4); SODIUM 136 MEQ/L (136-147); UREA NITROGEN (BUN) 21 mg/dL (9-23)
[2018-01-31 07:19] LABS: HEMATOCRIT 28.6 % (38.0-50.0); HEMOGLOBIN 9.4 G/DL (12.5-16.6); MCHC 32.9 G/DL (30.0-36.0); MCV 88.3 FL (86-99); NRBC (%) 1.5 /100 WBC (0-0); RBC DIS.WIDTH-CV 16.2 % (11.8-14.6); RBC DIS.WIDTH-SD 52.8 % (39-53); RED BLOOD COUNT 3.24 M/uL (4.00-5.50); WHITE BLOOD COUNT 3.4 K/uL (4.1-10.2)
[2018-01-31 07:50] VITALS: BP 124/70
[2018-01-31 07:59] LABS: PLAT.SUFFICIENCY DECREASED; PLATELET COUNT 137 K/uL (156-360)
[2018-01-31 16:47] VITALS: BP 120/66
[2018-01-31 23:45] VITALS: BP 136/85
[2018-02-01 07:44] LABS: HEMATOCRIT 31.2 % (38.0-50.0); MCH 28.8 PG (29.0-34.0); MCHC 32.1 G/DL (30.0-36.0); MCV 89.9 FL (86-99); PLATELET COUNT 171 K/uL (156-360); RBC DIS.WIDTH-CV 15.6 % (11.8-14.6); RBC DIS.WIDTH-SD 51.1 % (39-53); RED BLOOD COUNT 3.47 M/uL (4.00-5.50); WHITE BLOOD COUNT 2.9 K/uL (4.1-10.2)
[2018-02-01 08:01] VITALS: BP 139/69
[2018-02-01 08:21] LABS: CHLORIDE 114 MEQ/L (99-109); GFR ESTIMATE (CALCULATED) > 59 mL/min/ (58.99-99999); GLUCOSE 85 mg/dL (70-99); MAGNESIUM 1.5 mg/dl (1.3-2.7); POTASSIUM 3.7 MEQ/L (3.7-5.4); SODIUM 139 MEQ/L (136-147); UREA NITROGEN (BUN) 12 mg/dL (9-23)
[2018-02-01 15:52] VITALS: BP 122/68
[2018-02-02 00:08] VITALS: BP 128/73
[2018-02-02 07:45] VITALS: BP 140/56
== END 2018-02-02 12:40 | disposition home or self-care (01) | DRG 389 ==
LOC: EME 17:21 → 2EASTP 01-29 00:40 → EDOF 01-29 00:40 → ENRESERV 01-29 00:42 → 2EASTP 01-29 02:09 → ENRESERV 02-02 02:51 → 2SOUTH 02-02 04:16 → ENRESERV 02-02 04:16 → 4SOUTH 02-02 07:12 → ENRESERV 02-02 07:16 → 4SOUTH 02-02 12:40
PROVIDERS: Emergency Medicine; Hospitalist; Internal Medicine
DX: K56.50 Intestinal adhesions [bands], unspecified as to partial versus complete obstruction (principal); N17.9 Acute kidney failure, unspecified; Z89.612 Acquired absence of left leg above knee; Z99.3 Dependence on wheelchair; I25.10 Atherosclerotic heart disease of native coronary artery without angina pectoris; K21.9 Gastro-esophageal reflux disease without esophagitis; M10.9 Gout, unspecified; E83.52 Hypercalcemia; E78.5 Hyperlipidemia, unspecified; Q05.9 Spina bifida, unspecified; Z87.442 Personal history of urinary calculi; Z90.5 Acquired absence of kidney; Z93.2 Ileostomy status; E87.2 Acidosis; I10 Essential (primary) hypertension; Z96.653 Presence of artificial knee joint, bilateral; G89.29 Other chronic pain
CPT/HCPCS: 74177; 80048; 80053; 81003; 83605; 83690; 83735; 85025; 85027; 87040; 87077; 87086; 99281; 99285; J0696; J1644; J1885; J2270; J2405; J7030; S0028

== ENCOUNTER 2018-04-11 22:16 | Inpatient (IN) | payer OTHER, BC ==
[~2018-04-11] VITALS: Ht 157.5 cm; Wt 70.4 kg
[~2018-04-11 22:16] MED LIST changes: +SODIUM CHLOR1L 0.9 IV
[2018-04-12 00:04] LABS: HEMATOCRIT 28.8 % (38.0-50.0); HEMOGLOBIN 9.4 G/DL (12.5-16.6); MCH 28.7 PG (29.0-34.0); MCHC 32.6 G/DL (30.0-36.0); MCV 88.1 FL (86-99); PLATELET COUNT 211 K/uL (156-360); RBC DIS.WIDTH-CV 15.4 % (11.8-14.6); RBC DIS.WIDTH-SD 49.5 % (39-53); RED BLOOD COUNT 3.27 M/uL (4.00-5.50); WHITE BLOOD COUNT 5.9 K/uL (4.1-10.2)
[2018-04-12 00:37] LABS: ALBUMIN 3.5 g/dL (3.2-4.8)
[2018-04-12 00:38] LABS: CHLORIDE 104 mEq/L (99-109); POTASSIUM 4.4 mEq/L (3.7-5.4); SODIUM 139 mEq/L (136-147)
[2018-04-12 00:40] LABS: GLUCOSE 118 mg/dL (70-99); TOTAL PROTEIN 6.8 g/dL (6.4-8.3)
[2018-04-12 00:42] LABS: TOTAL BILIRUBIN 0.3 mg/dL (0.0-1.0)
[2018-04-12 00:43] LABS: ALKALINE PHOSPHATASE 67 IU/L (3-129)
[2018-04-12 00:44] LABS: CREATININE 1.4 mg/dL (0.6-1.3); GFR ESTIMATE (CALCULATED) 53 mL/min/ (58.99-99999)
[2018-04-12 00:45] LABS: AST (GOT) 11 IU/L (2-34); UREA NITROGEN (BUN) 22 mg/dL (9-23)
[2018-04-12 00:47] LABS: ALT (GPT) 10 IU/L (3-49); LIPASE 40 U/L (1.0-51.0)
[2018-04-12 05:11] VITALS: BP 115/68
[2018-04-12 08:00] VITALS: BP 128/65
[2018-04-12 11:44] VITALS: BP 102/59
[2018-04-12 15:28] VITALS: BP 117/68
[2018-04-12 19:39] VITALS: BP 127/71
[2018-04-13 00:25] VITALS: BP 128/62
[2018-04-13 08:01] VITALS: BP 140/72
[2018-04-13] MEDS ORDERED: PROLIA60 MG/1 ML SC (10:48)
[2018-04-13 11:31] VITALS: BP 114/68
[2018-04-13 15:52] VITALS: BP 125/83
[2018-04-13 19:27] VITALS: BP 119/66
[2018-04-13 23:22] VITALS: BP 120/58
[2018-04-14 08:00] VITALS: BP 127/62
[2018-04-14 12:20] VITALS: BP 109/56
== END 2018-04-14 14:15 | disposition home or self-care (01) | DRG 389 ==
LOC: EME 22:16 → EDOF 04-12 03:15 → ENRESERV 04-12 03:21 → 4SOUTH 04-12 05:01
DX: K56.50 Intestinal adhesions [bands], unspecified as to partial versus complete obstruction (principal); Z91.11 Patient's noncompliance with dietary regimen; I12.9 Hypertensive chronic kidney disease with stage 1 through stage 4 chronic kidney disease, or unspecified chronic kidney disease; N18.9 Chronic kidney disease, unspecified; E78.5 Hyperlipidemia, unspecified; D64.9 Anemia, unspecified; G89.29 Other chronic pain; I25.10 Atherosclerotic heart disease of native coronary artery without angina pectoris; K21.9 Gastro-esophageal reflux disease without esophagitis; Q05.9 Spina bifida, unspecified; K91.2 Postsurgical malabsorption, not elsewhere classified; M10.9 Gout, unspecified; F41.1 Generalized anxiety disorder; Z93.2 Ileostomy status; F32.9 Major depressive disorder, single episode, unspecified; Z86.19 Personal history of other infectious and parasitic diseases; Z89.612 Acquired absence of left leg above knee; Z90.5 Acquired absence of kidney
CPT/HCPCS: 74018; 74176; 80053; 81003; 83605; 83690; 85027; 99281; 99285; C9113; J1644; J1885; J2270; J3010; J3480; J7030

== ENCOUNTER 2018-04-16 17:20 | Emergency (ER) | payer OTHER, BC ==
[~2018-04-16] VITALS: Ht 157.5 cm; Wt 68.0 kg
[~2018-04-16 17:20] MED LIST changes: +PROLIA60 MG/1 ML SC
[2018-04-16 18:11] LABS: HEMATOCRIT 36.2 % (38.0-50.0); HEMOGLOBIN 11.9 G/DL (12.5-16.6); MCH 28.5 PG (29.0-34.0); MCHC 32.9 G/DL (30.0-36.0); MCV 86.8 FL (86-99); RBC DIS.WIDTH-CV 14.7 % (11.8-14.6); RBC DIS.WIDTH-SD 47.2 % (39-53); RED BLOOD COUNT 4.17 M/uL (4.00-5.50); WHITE BLOOD COUNT 9.5 K/uL (4.1-10.2)
[2018-04-16 18:12] LABS: PLATELET COUNT 355 K/uL (156-360)
[2018-04-16 18:20] LABS: ALBUMIN 4.1 g/dL (3.2-4.8); CHLORIDE 103 mEq/L (99-109); POTASSIUM 4.6 mEq/L (3.7-5.4); SODIUM 133 mEq/L (136-147)
[2018-04-16 18:22] LABS: GLUCOSE 114 mg/dL (70-99)
[2018-04-16 18:26] LABS: ALKALINE PHOSPHATASE 107 IU/L (3-129); CREATININE 1.9 mg/dL (0.6-1.3); GFR ESTIMATE (CALCULATED) 37 mL/min/ (58.99-99999); TOTAL BILIRUBIN 0.2 mg/dL (0.0-1.0); TOTAL PROTEIN 8.7 g/dL (6.4-8.3)
[2018-04-16 18:28] LABS: AST (GOT) 11 IU/L (2-34)
[2018-04-16 18:29] LABS: ALT (GPT) 18 IU/L (3-49); LIPASE 98 U/L (1.0-51.0)
[2018-04-16 18:31] LABS: UREA NITROGEN (BUN) 29 mg/dL (9-23)
[2018-04-16 18:31] LABS: APPEARANCE CLOUDY ((CLEAR)); BILIRUBIN NEGATIVE; BLOOD NEGATIVE; COLOR AMBER ((YELLOW)); GLUCOSE (STRIP) NEGATIVE; KETONES NEGATIVE; LEUKOCYTES LARGE; NITRITE NEGATIVE; PROTEIN (STRIP) 100; SPECIFIC GRAVITY 1.021 (1.000-1.030); UROBILINOGEN 0.2 MG/DL (0.2-1.0)
[2018-04-16 18:48] LABS: BACTERIA 2+ /HPF; EPITHELIAL CELLS RARE /HPF; MUCUS TRACE /LPF; UCUL ADDED? YES; WHITE BLOOD CELLS TNTC /HPF (0-5)
[2018-04-16 20:15] LABS: TROP-I INTERPRETATION NEGATIVE; TROPONIN-I 0.02 ng/mL (0.0-0.30)
[2018-04-16 22:32] LABS: CHLORIDE 104 mEq/L (99-109); POTASSIUM 4.5 mEq/L (3.7-5.4); SODIUM 136 mEq/L (136-147)
[2018-04-16 22:34] LABS: GLUCOSE 110 mg/dL (70-99)
[2018-04-16 22:38] LABS: CREATININE 1.7 mg/dL (0.6-1.3); GFR ESTIMATE (CALCULATED) 43 mL/min/ (58.99-99999); UREA NITROGEN (BUN) 29 mg/dL (9-23)
[2018-04-16 22:59] VITALS: BP 110/71
== END 2018-04-16 22:59 | disposition home or self-care (01) ==
LOC: EME 17:20 → EXP 17:20
PROVIDERS: Physician Assistant
DX: E86.0 Dehydration (principal); K52.9 Noninfective gastroenteritis and colitis, unspecified; N17.9 Acute kidney failure, unspecified; R74.8 Abnormal levels of other serum enzymes; E87.1 Hypo-osmolality and hyponatremia; I10 Essential (primary) hypertension; K21.9 Gastro-esophageal reflux disease without esophagitis; E78.5 Hyperlipidemia, unspecified; Q05.9 Spina bifida, unspecified; F41.9 Anxiety disorder, unspecified; Z93.2 Ileostomy status; Z93.3 Colostomy status; Z87.442 Personal history of urinary calculi; Z90.5 Acquired absence of kidney; Z89.612 Acquired absence of left leg above knee; Z90.49 Acquired absence of other specified parts of digestive tract; Z88.2 Allergy status to sulfonamides; Z88.0 Allergy status to penicillin; Z88.8 Allergy status to other drugs, medicaments and biological substances
CPT/HCPCS: 71046; 74176; 80048 91; 80053; 81003; 83605; 83690; 84484; 85027; 87077; 87086 GA; 87186; 93005; 99281; 99285; J7030

== ENCOUNTER 2018-04-20 18:32 | Inpatient (IN) | payer OTHER, BC ==
[~2018-04-20] VITALS: Ht 157.5 cm; Wt 69.4 kg
[2018-04-20 19:44] LABS: HEMATOCRIT 32.5 % (38.0-50.0); HEMOGLOBIN 10.8 G/DL (12.5-16.6); MCH 28.7 PG (29.0-34.0); MCHC 33.2 G/DL (30.0-36.0); MCV 86.4 FL (86-99); PLATELET COUNT 347 K/uL (156-360); RBC DIS.WIDTH-CV 14.6 % (11.8-14.6); RBC DIS.WIDTH-SD 46.8 % (39-53); RED BLOOD COUNT 3.76 M/uL (4.00-5.50); WHITE BLOOD COUNT 10.2 K/uL (4.1-10.2)
[2018-04-20 19:56] LABS: ALBUMIN 3.9 g/dL (3.2-4.8); CHLORIDE 109 mEq/L (99-109); POTASSIUM 4.4 mEq/L (3.7-5.4); SODIUM 138 mEq/L (136-147)
[2018-04-20 19:58] LABS: GLUCOSE 80 mg/dL (70-99); TOTAL PROTEIN 7.6 g/dL (6.4-8.3)
[2018-04-20 20:00] LABS: TOTAL BILIRUBIN 0.2 mg/dL (0.0-1.0)
[2018-04-20 20:02] LABS: ALKALINE PHOSPHATASE 94 IU/L (3-129); CREATININE 1.3 mg/dL (0.6-1.3); GFR ESTIMATE (CALCULATED) 58 mL/min/ (58.99-99999)
[2018-04-20 20:03] LABS: AST (GOT) 10 IU/L (2-34); UREA NITROGEN (BUN) 24 mg/dL (9-23)
[2018-04-20 20:05] LABS: ALT (GPT) 11 IU/L (3-49)
[2018-04-20 23:06] VITALS: BP 131/66
[2018-04-21 04:41] VITALS: BP 115/70
[2018-04-21 06:56] LABS: BASOPHIL (%) 0.4 % (0-1); EOSINOPHIL (%) 0.5 % (0-5); EOSINOPHIL COUNT 0.1 K/uL (0-0.3); HEMATOCRIT 30.4 % (38.0-50.0); HEMOGLOBIN 9.5 G/DL (12.5-16.6); IMMATURE GRANULOCYTE (%) 0.3 % (0.0-0.7); LYMPHOCYTE (%) 10.7 % (15-42); MCH 27.7 PG (29.0-34.0); MCHC 31.3 G/DL (30.0-36.0); MCV 88.6 FL (86-99); MONOCYTE (%) 4.8 % (3-12); MONOCYTE COUNT 0.4 K/uL (0-0.8); NEUTROPHIL (%) 83.3 % (45-76); NEUTROPHIL COUNT 7.6 K/uL (1.8-6.4); PLATELET COUNT 302 K/uL (156-360); RBC DIS.WIDTH-CV 14.7 % (11.8-14.6); RBC DIS.WIDTH-SD 47.2 % (39-53); RED BLOOD COUNT 3.43 M/uL (4.00-5.50); WHITE BLOOD COUNT 9.2 K/uL (4.1-10.2)
[2018-04-21 07:39] LABS: CHLORIDE 111 MEQ/L (99-109); CREATININE 1.1 MG/DL (0.6-1.3); GFR ESTIMATE (CALCULATED) > 59 mL/min/ (58.99-99999); POTASSIUM 4.4 MEQ/L (3.7-5.4); SODIUM 139 MEQ/L (136-147); UREA NITROGEN (BUN) 21 mg/dL (9-23)
[2018-04-21 07:43] VITALS: BP 129/70
[2018-04-21 07:44] LABS: GLUCOSE 104 mg/dL (70-99)
[2018-04-21 11:44] VITALS: BP 127/71
[2018-04-21 19:26] VITALS: BP 131/67
[2018-04-21 19:36] LABS: C DIFF TOXIN NEGATIVE (NEGATIVE)
[2018-04-22 00:25] VITALS: BP 120/64
[2018-04-22 04:25] VITALS: BP 132/77
[2018-04-22 07:02] LABS: BASOPHIL (%) 0.4 % (0-1); EOSINOPHIL (%) 0.3 % (0-5); HEMATOCRIT 29.9 % (38.0-50.0); HEMOGLOBIN 9.2 G/DL (12.5-16.6); IMMATURE GRANULOCYTE (%) 0.4 % (0.0-0.7); LYMPHOCYTE (%) 6.4 % (15-42); LYMPHOCYTE COUNT 0.7 K/uL (1.0-2.8); MCH 27.9 PG (29.0-34.0); MCHC 30.8 G/DL (30.0-36.0); MCV 90.6 FL (86-99); MONOCYTE (%) 4.8 % (3-12); MONOCYTE COUNT 0.5 K/uL (0-0.8); NEUTROPHIL (%) 87.7 % (45-76); PLATELET COUNT 298 K/uL (156-360); RBC DIS.WIDTH-SD 49.8 % (39-53); WHITE BLOOD COUNT 10.3 K/uL (4.1-10.2)
[2018-04-22 07:27] LABS: ALBUMIN 3.2 G/DL (3.2-4.8); ALKALINE PHOSPHATASE 70 IU/L (3-129); ALT (GPT) 7 IU/L (3-49); AST (GOT) 9 IU/L (2-34); CHLORIDE 115 MEQ/L (99-109); CREATININE 1.2 MG/DL (0.6-1.3); GFR ESTIMATE (CALCULATED) > 59 mL/min/ (58.99-99999); GLUCOSE 99 mg/dL (70-99); POTASSIUM 4.4 MEQ/L (3.7-5.4); SODIUM 144 MEQ/L (136-147); TOTAL BILIRUBIN 0.3 MG/DL (0.0-1.0); TOTAL PROTEIN 6.1 G/DL (6.4-8.3); UREA NITROGEN (BUN) 22 mg/dL (9-23)
[2018-04-22 07:32] VITALS: BP 126/80
[2018-04-22 10:59] LABS: APPEARANCE CLOUDY ((CLEAR)); BILIRUBIN NEGATIVE; BLOOD SMALL; COLOR YELLOW ((YELLOW)); GLUCOSE (STRIP) NEGATIVE; KETONES NEGATIVE; LEUKOCYTES LARGE; NITRITE POSITIVE; PROTEIN (STRIP) NEGATIVE; UROBILINOGEN 0.2 MG/DL (0.2-1.0)
[2018-04-22 11:19] LABS: WHITE BLOOD CELLS TNTC /HPF (0-5)
[2018-04-22 11:20] LABS: BACTERIA 2+ /HPF; EPITHELIAL CELLS RARE /HPF; FINE GRANULAR CASTS 0-5 /LPF; HYALINE CASTS 0-5 /LPF; MUCUS RARE /LPF; UCUL ADDED? YES
[2018-04-22 16:24] VITALS: BP 111/57
[2018-04-23 00:29] VITALS: BP 105/53
[2018-04-23 06:36] LABS: BASOPHIL (%) 0.7 % (0-1); BASOPHIL COUNT 0.1 K/uL (0-0.1); EOSINOPHIL (%) 1.1 % (0-5); EOSINOPHIL COUNT 0.1 K/uL (0-0.3); HEMATOCRIT 29.5 % (38.0-50.0); HEMOGLOBIN 9.1 G/DL (12.5-16.6); IMMATURE GRANULOCYTE (%) 0.3 % (0.0-0.7); LYMPHOCYTE (%) 13.2 % (15-42); LYMPHOCYTE COUNT 0.9 K/uL (1.0-2.8); MCH 27.8 PG (29.0-34.0); MCHC 30.8 G/DL (30.0-36.0); MCV 90.2 FL (86-99); MONOCYTE COUNT 0.5 K/uL (0-0.8); NEUTROPHIL (%) 77.7 % (45-76); NEUTROPHIL COUNT 5.5 K/uL (1.8-6.4); PLATELET COUNT 253 K/uL (156-360); RBC DIS.WIDTH-SD 49.5 % (39-53); RED BLOOD COUNT 3.27 M/uL (4.00-5.50)
[2018-04-23 06:57] LABS: CHLORIDE 114 MEQ/L (99-109); CREATININE 1.1 MG/DL (0.6-1.3); GFR ESTIMATE (CALCULATED) > 59 mL/min/ (58.99-99999); GLUCOSE 92 mg/dL (70-99); POTASSIUM 3.8 MEQ/L (3.7-5.4); SODIUM 141 MEQ/L (136-147); UREA NITROGEN (BUN) 14 mg/dL (9-23)
[2018-04-23 07:50] VITALS: BP 103/57
[2018-04-23 15:28] VITALS: BP 116/59
[2018-04-23 23:20] VITALS: BP 138/61
[2018-04-24 07:49] VITALS: BP 118/58
[2018-04-24 07:49] LABS: BASOPHIL (%) 0.5 % (0-1); EOSINOPHIL (%) 0.8 % (0-5); EOSINOPHIL COUNT 0.1 K/uL (0-0.3); HEMATOCRIT 27.5 % (38.0-50.0); HEMOGLOBIN 8.8 G/DL (12.5-16.6); IMMATURE GRANULOCYTE (%) 0.3 % (0.0-0.7); LYMPHOCYTE (%) 12.6 % (15-42); LYMPHOCYTE COUNT 0.8 K/uL (1.0-2.8); MCH 28.2 PG (29.0-34.0); MCV 88.1 FL (86-99); MONOCYTE (%) 7.7 % (3-12); MONOCYTE COUNT 0.5 K/uL (0-0.8); NEUTROPHIL (%) 78.1 % (45-76); PLATELET COUNT 243 K/uL (156-360); RBC DIS.WIDTH-CV 14.8 % (11.8-14.6); RBC DIS.WIDTH-SD 47.5 % (39-53); RED BLOOD COUNT 3.12 M/uL (4.00-5.50); WHITE BLOOD COUNT 6.4 K/uL (4.1-10.2)
[2018-04-24 08:00] LABS: ALBUMIN 2.8 G/DL (3.2-4.8); ALKALINE PHOSPHATASE 58 IU/L (3-129); ALT (GPT) 4 IU/L (3-49); AST (GOT) 7 IU/L (2-34); CHLORIDE 111 MEQ/L (99-109); GFR ESTIMATE (CALCULATED) > 59 mL/min/ (58.99-99999); GLUCOSE 93 mg/dL (70-99); POTASSIUM 3.5 MEQ/L (3.7-5.4); SODIUM 138 MEQ/L (136-147); TOTAL BILIRUBIN 0.3 MG/DL (0.0-1.0); TOTAL PROTEIN 5.4 G/DL (6.4-8.3); UREA NITROGEN (BUN) 8 mg/dL (9-23)
== END 2018-04-24 12:40 | disposition home or self-care (01) | DRG 389 ==
LOC: EME 18:32 → EDOF 21:35 → 3EAST 21:35 → ENRESERV 21:37 → 3EAST 22:49
PROVIDERS: Hospitalist; Physician Assistant
DX: K56.609 Unspecified intestinal obstruction, unspecified as to partial versus complete obstruction (principal); N17.9 Acute kidney failure, unspecified; E86.0 Dehydration; E87.2 Acidosis; D53.9 Nutritional anemia, unspecified; I87.2 Venous insufficiency (chronic) (peripheral); K21.9 Gastro-esophageal reflux disease without esophagitis; I25.10 Atherosclerotic heart disease of native coronary artery without angina pectoris; I10 Essential (primary) hypertension; M10.9 Gout, unspecified; F41.1 Generalized anxiety disorder; E78.5 Hyperlipidemia, unspecified; Z96.653 Presence of artificial knee joint, bilateral; Q05.9 Spina bifida, unspecified; Z89.612 Acquired absence of left leg above knee; Z90.49 Acquired absence of other specified parts of digestive tract; Z90.5 Acquired absence of kidney; Z93.3 Colostomy status
CPT/HCPCS: 74018; 80048; 80053; 81003; 83605; 83735; 85025; 85027; 87077; 87086; 87186; 87493; 96365; 99281; 99285; J1170; J1650; J2405; J3010; J7030; S0028